=== PATIENT | female | born 1960 ===

== ENCOUNTER 2020-03-21 11:16 | Outpatient (REF) | payer BC, SELFPAY ==
--- NOTE | 2020-03-21 11:21 | CT_ITS ---
EXAMINATION: CT CHEST WITHOUT CONTRAST CLINICAL INFORMATION: Follow-up pulmonary nodules. COMPARISON: None TECHNIQUE: Multidetector volumetric CT imaging of the chest was done. Axial MIP volume rendering provided. Sagittal and coronal reformatted images were obtained. This CT examination was performed using dose optimization techniques as appropriate, variously including the following: *Automated exposure control *Adjustment of mA and/or kV according to patient size (this includes techniques or standardized protocols for targeted exams where dose is matched to indication/reason for exam; i.e. extremities or head) *Use of iterative reconstruction technique DLP: 158 mGy-cm FINDINGS: PET HOUSE SITTER: Lungs are well-expanded with calcified nodules in both upper lungs. LUNGS: The lungs are well expanded with bilateral dense coarse benign calcified nodules in both lungs with largest calcified nodules measuring 7 mm left lung apex, image 76/7, and 1 cm in left upper lobe, axial image 121/7. Largest nodule right upper lobe measures 5 mm, image 102/7. There is bilateral apical pleural/parenchymal scarring and mild apical bronchiectasis with bronchial wall thickening. Mild bronchovascular increased markings and ground-glass attenuation also seen in both upper lobes. A few scattered calcified nodules are seen in the right lower lobe. No additional nodules seen. No evidence of consolidation. MEDIASTINUM: The thyroid lobes are symmetrical. Central trachea and the bronchi are widely patent. Heart size and the great vessels are normal caliber. PLEURA: There is no pleural effusion. No pleural mass or thickening. AXILLA: No lymphadenopathy. UPPER ABDOMEN: Small hypodense lesions are seen in the liver which appear stable. Visualized spleen, pancreas and bilateral adrenal glands are unremarkable. OSSEOUS STRUCTURES: No lytic or sclerotic process seen. There is mild ventral spondylosis. IMPRESSION: Multiple bilateral upper lobe calcified nodules, ground-glass attenuation, pleural/parenchymal scarring and mild upper lobe bronchiectasis are are stable to previous CT chest 02/22/2019. There is no new nodules, mass or consolidation. No abnormal mediastinal or axillary lymphadenopathy. Stable hypodense liver lesions.
== END 2020-03-21 11:17 | disposition home or self-care (01) ==
LOC: HO.CT 11:16
PROVIDERS: PCP Internal Medicine; Visit Provider Internal Medicine
DX: R91.8 Other nonspecific abnormal finding of lung field (principal)
CPT/HCPCS: 71250

== ENCOUNTER 2020-03-31 13:27 | Outpatient (REF) | payer BC, SELFPAY ==
--- NOTE | 2020-03-31 13:32 | MM_ITS ---
EXAMINATION: MM SCREENING DIGITAL BREAST TOMOSYNTHESIS, BILATERAL CLINICAL INFORMATION: Screening. Asymptomatic. The lifetime risk of breast cancer based on the Tyrer-Cuzick Model is 9.2%. COMPARISON: Mammography: June 05, 2018 and studies dating back to December 16, 2015 TECHNIQUE: Digital breast tomosynthesis is performed in both the craniocaudal and mediolateral oblique views along with computer-aided detection (CAD). Synthesized 2D images are generated from the tomosynthesis. FINDINGS: There are scattered areas of fibroglandular density (ACR BI-RADS breast composition Category b). There are no significant masses, abnormal calcifications, or other abnormalities. MM/MM tomosynthesis screening BI IMPRESSION: There are no significant changes from prior study. ASSESSMENT: BI-RADS 1: Negative RECOMMENDATION: Routine annual mammography screening. This patient's information was entered into a reminder system with a target due date for their next mammogram.
== END 2020-03-31 13:28 | disposition home or self-care (01) ==
LOC: HO.MAMMO 13:27
PROVIDERS: Visit Provider Internal Medicine
DX: Z12.31 Encounter for screening mammogram for malignant neoplasm of breast (principal)
CPT/HCPCS: 77063; 77067

== ENCOUNTER 2020-06-07 09:34 | Outpatient (REF) | payer BC, SELFPAY ==
--- NOTE | 2020-06-07 09:41 | XR_ITS ---
EXAMINATION: XR LUMBOSACRAL SPINE CLINICAL INFORMATION: Radiculopathy. COMPARISON: None TECHNIQUE: Three views of the lumbosacral spine. FINDINGS: There is maintained lumbar lordosis. The vertebral heights and alignment is normal. Mild loss of L4-L5 and L5-S1 disc heights is noted. There is no visible acute fracture, dislocation or lytic process. The SI joints are symmetrical and normal. There is bilateral L5-S1, L4-L5 facet joint arthropathy. No lytic process seen. XR/XR lumbar spine 2-3V IMPRESSION: Degenerative disc changes L4-L5 and L5-S1 disc levels. No visible acute fracture or dislocation seen. There is bilateral L4-L5 and L5-S1 facet joint arthropathy.
== END 2020-06-07 09:35 | disposition home or self-care (01) ==
LOC: HO.HMGCX 09:34
PROVIDERS: PCP Internal Medicine; Visit Provider Nurse Practitioner Family
DX: M54.16 Radiculopathy, lumbar region (principal)
CPT/HCPCS: 72100

== ENCOUNTER 2020-08-30 09:55 | Outpatient (REF) | payer BC, SELFPAY ==
[2020-08-30 11:17] LABS: Glucose Urine UA NEG (NEG); Leukocyte Esterase Urine 3+ (NEG); Nitrite Urine NEG (NEG); PH 6.5 (5.0-8.0); Urine Blood TRACE (NEG); Urine Ketones NEG (NEG); Urine Protein NEG (NEG-TRACE)
[2020-08-30 11:19] LABS: Appearance Urine CLOUDY; Color Urine YELLOW
[2020-08-30 11:24] LABS: Hematocrit 37.9 % (37-47); Hemoglobin 12.6 g/dl (12.0-16.0); Mean Corpuscular HGB Conc 33.2 g/dl (31.0-35.0); Mean Corpuscular Hemoglobin 29.8 pg (27.0-33.0); Mean Corpuscular Volume 89.6 fL (80-98); Mean Platelet Volume 10.7 fL (9.4-12.3); Platelet Count 259 X10*3/uL (160-400); Red Blood Count 4.23 X10*6/uL (4.20-5.50); Red Cell Distribution Width 12.6 % (11.0-16.0); White Blood Count 5.5 X10*3/uL (4.8-10.8)
[2020-08-30 11:30] LABS: Bacteria Urine 1+ /LPF; RBC Urine 0-2 /HPF (0); Squamous Epithelial Cell Urine 4+ /LPF
[2020-08-30 11:45] LABS: Alanine Aminotransferase 23 U/L (0-31); Albumin Level 4.3 g/dL (3.5-5.0); Alkaline Phosphatase 68 U/L (39-117); Anion Gap 13 (12-20); Aspartate Amino Transferase 20 U/L (5-31); Bilirubin Total 0.9 mg/dL (0.0-1.0); Blood Urea Nitrogen 11 mg/dL (9-16); Calcium 8.9 mg/dL (8.4-10.2); Carbon Dioxide 29 mmol/L (22-29); Chloride 103 mmol/L (96-108); Cholesterol 176 mg/dL; Estimated Glomerular Filt Rate > 60; Glucose Fasting 100 mg/dL (60-99); HDL Cholesterol 65 mg/dL; LDL Cholesterol Calculated 93 mg/dl; Potassium 3.6 mmol/L (3.3-5.1); Sodium 141 mmol/L (135-145); Total Protein 6.8 g/dL (6.5-8.0); Triglycerides 91 mg/dL
== END 2020-08-30 09:56 | disposition home or self-care (01) ==
LOC: HO.HMGCLDS 09:55
PROVIDERS: PCP Internal Medicine; Visit Provider Internal Medicine
DX: I10 Essential (primary) hypertension (principal); E78.5 Hyperlipidemia, unspecified
CPT/HCPCS: 36415; 80053; 80061; 81001; 84443; 85027

== ENCOUNTER 2021-04-17 09:42 | Outpatient (REF) | payer BC, SELFPAY ==
--- NOTE | ~2021-04-17 | MM_ITS ---
EXAMINATION: MM SCREENING DIGITAL BREAST TOMOSYNTHESIS, BILATERAL CLINICAL INFORMATION: Screening. Asymptomatic. The lifetime risk of breast cancer based on the Tyrer-Cuzick Model is 9%. COMPARISON: Mammography: 03/31/2020; outside exams 06/05/2018, 02/17/2017 ([facility]). TECHNIQUE: Digital breast tomosynthesis is performed in both the craniocaudal and mediolateral oblique views along with computer-aided detection (CAD). Synthesized 2D images are generated from the tomosynthesis. FINDINGS: There are scattered areas of fibroglandular density (ACR BI-RADS breast composition Category b). There are no significant masses, abnormal calcifications, or other abnormalities. Parenchymal pattern is similar to prior exams. No developing density. The axilla and skin contours are unremarkable. No significant changes. MM/MM tomosynthesis screening BI IMPRESSION: No mammographic evidence of malignancy. ASSESSMENT: BI-RADS 1: Negative RECOMMENDATION: Routine annual mammography screening. This patient's information was entered into a reminder system with a target due date for their next mammogram.
== END 2021-04-17 09:43 | disposition home or self-care (01) ==
LOC: HO.MAMMO 09:42
PROVIDERS: Visit Provider Internal Medicine
DX: Z12.31 Encounter for screening mammogram for malignant neoplasm of breast (principal)
CPT/HCPCS: 77063; 77067

== ENCOUNTER 2021-04-20 13:05 | Outpatient (REF) | payer BC, SELFPAY ==
--- NOTE | ~2021-04-20 | US_ITS ---
EXAMINATION: US ABDOMEN COMPLETE CLINICAL INFORMATION: Abdominal pain. COMPARISON: CT chest noncontrast 03/21/2020, CT chest with contrast 02/22/2019. Ultrasound abdomen 08/19/2017. TECHNIQUE: Real-time imaging of the abdominal viscera. FINDINGS: PANCREAS: The pancreas is normal in size and contour and echogenicity. No pancreatic ductal distention or retroperitoneal effusion. ABDOMINAL AORTA: The proximal, mid, and distal segments are normal in caliber. INFERIOR VENA CAVA: Visualized portions are normal. LIVER: Liver is normal in size and smooth in contour. There is no intrahepatic ductal dilatation. There is a small circumscribed hyperechoic lesion central right hepatic lobe measuring 0.8 x 0.7 cm, likely a tiny hemangioma. Similar finding noted on ultrasound 2018. Other small hypodense hepatic parenchymal lesions noted on CT are not demonstrated by ultrasound. GALLBLADDER: The gallbladder shows no stone or layering sludge. There is no pericholecystic fluid. Sonographic Bolden's sign is negative. There are at least 4 gallbladder polyps projecting into the lumen. The largest measures 0.9 x 0.6 cm which may overlap with adenoma. Prior ultrasound 2018 shows similar finding. No significant gallbladder wall thickening. COMMON BILE DUCT: Common duct is normal in caliber measuring 0.55 cm. No ductal calculus. RIGHT KIDNEY: Right kidney measures 13.0 cm in length. There is normal renal parenchymal thickness and echogenicity with no hydronephrosis, caliectasis, or visible calculus. There is a nonspecific exophytic lesion from the interpolar region measuring 1.3 x 0.7 x 1.0 cm. The lesion appears solid. There is no associated color flow. The finding appears more focal than a simple developmental dromedary hump. In addition, finding is not demonstrated on prior ultrasound 2018. LEFT KIDNEY: Left kidney measures 11.6 cm. There is normal renal parenchymal thickness and echogenicity. No parenchymal lesion, hydronephrosis, caliectasis, or calculi. SPLEEN: Normal. The spleen measures 10.6 cm in maximum dimension. FREE FLUID: None. US/US abdomen complete IMPRESSION: 1. Multiple gallbladder polyps, largest measuring 0.9 cm may overlap with an adenoma and is similar to prior ultrasound 2018. Recommend nonemergent surgical consult for management. 2. No pericholecystic fluid. Negative sonographic Bolden's sign. No ductal dilatation. Normal pancreas. 3. Solid appearing exophytic lesion mid right kidney 1.3 cm, not previously described. Recommend further characterization with nonemergent MRI without and with gadolinium contrast. 4. Subcentimeter hepatic hemangioma similar to prior ultrasound 2018.
[2021-04-20 13:47] LABS: MANUAL DIFF FLAG NO
[2021-04-20 13:53] LABS: Basophils Percent Auto 0.4 % (0-2); Eosinophils Percent Auto 0.7 % (0-4); Hematocrit 38.5 % (37.0-47.0); Hemoglobin 12.6 g/dl (12.0-16.0); Imm Gran Abs Auto 0.01 X10*3/uL (0.00-0.03); Imm Gran Pct Auto 0.2 % (0.0-0.4); Lymphocytes Absolute Auto 1.8 X10*3/uL (1.2-4.9); Lymphocytes Percent Auto 32.4 % (20-40); Mean Corpuscular HGB Conc 32.7 g/dl (31.0-35.0); Mean Corpuscular Hemoglobin 29.2 pg (27.0-33.0); Mean Corpuscular Volume 89.3 fL (80.0-98.0); Mean Platelet Volume 10.9 fL (9.4-12.3); Monocytes Absolute Auto 0.4 X10*3/uL (0.1-1.2); Monocytes Percent Auto 6.6 % (2-11); Neutrophils Absolute Auto 3.3 x10*3/uL (2.0-8.3); Neutrophils Percent Auto 59.7 % (45-73); Platelet Count 242 X10*3/uL (160-400); Red Blood Count 4.31 X10*6/uL (4.20-5.50); Red Cell Distribution Width 12.4 % (11.0-16.0); White Blood Count 5.4 X10*3/uL (4.8-10.8)
[2021-04-20 14:03] LABS: Appearance Urine CLEAR; Color Urine YELLOW; Glucose Urine UA NEG (NEG); Leukocyte Esterase Urine NEG (NEG); Nitrite Urine NEG (NEG); Specific Gravity - Urine <= 1.005 (1.005-1.025); Urine Blood NEG (NEG); Urine Ketones NEG (NEG); Urine Protein NEG (NEG-TRACE)
[2021-04-20 14:22] LABS: Alanine Aminotransferase 506 U/L (0-31); Albumin Level 4.4 g/dL (3.5-5.0); Alkaline Phosphatase 168 U/L (39-117); Anion Gap 12 (12-20); Aspartate Amino Transferase 382 U/L (5-31); Bilirubin Total 1.4 mg/dL (0.0-1.0); Blood Urea Nitrogen 7 mg/dL (9-16); C Reactive Protein 0.18 mg/dL (< or = 0.50); Carbon Dioxide 28 mmol/L (22-29); Chloride 105 mmol/L (96-108); Estimated Glomerular Filt Rate > 60; Glucose Random 94 mg/dL (60-115); Potassium 3.9 mmol/L (3.3-5.1); Sodium 141 mmol/L (135-145); Total Protein 6.8 g/dL (6.5-8.0)
[2021-04-20 14:35] LABS: Squamous Epithelial Cell Urine 1+ /LPF
[2021-04-20 14:36] LABS: RBC Urine 0 /HPF (0); WBC Urine 0-2 /HPF (0-4)
[2021-04-20 14:37] LABS: Bacteria Urine TRACE /LPF
== END 2021-04-20 13:06 | disposition home or self-care (01) ==
LOC: HO.HMGCX 13:05
PROVIDERS: PCP Internal Medicine; Visit Provider Internal Medicine
DX: R10.9 Unspecified abdominal pain (principal); I10 Essential (primary) hypertension; E78.5 Hyperlipidemia, unspecified
CPT/HCPCS: 36415; 76700; 80053; 81001; 85025; 86140

== ENCOUNTER 2021-04-30 09:32 | Outpatient (REF) | payer BC, SELFPAY ==
[2021-04-30 11:56] LABS: Hemoglobin 12.9 g/dl (12.0-16.0); Mean Corpuscular HGB Conc 33.1 g/dl (31.0-35.0); Mean Corpuscular Hemoglobin 29.3 pg (27.0-33.0); Mean Corpuscular Volume 88.4 fL (80.0-98.0); Mean Platelet Volume 11.1 fL (9.4-12.3); Platelet Count 294 X10*3/uL (160-400); Red Blood Count 4.41 X10*6/uL (4.20-5.50); White Blood Count 7.7 X10*3/uL (4.8-10.8)
[2021-04-30 12:08] LABS: Alanine Aminotransferase 71 U/L (0-31); Albumin Level 4.3 g/dL (3.5-5.0); Alkaline Phosphatase 115 U/L (39-117); Anion Gap 13 (12-20); Aspartate Amino Transferase 28 U/L (5-31); Bilirubin Total 0.6 mg/dL (0.0-1.0); Blood Urea Nitrogen 9 mg/dL (9-16); Calcium 9.3 mg/dL (8.4-10.2); Carbon Dioxide 28 mmol/L (22-29); Chloride 105 mmol/L (96-108); Cholesterol 159 mg/dL; Estimated Glomerular Filt Rate > 60; Gamma Glutamyl Transpeptidase 230 U/L (7-33); Glucose Fasting 105 mg/dL (60-99); HDL Cholesterol 54 mg/dL; LDL Cholesterol Calculated 87 mg/dl; Potassium 3.9 mmol/L (3.3-5.1); Sodium 142 mmol/L (135-145); Total Protein 6.9 g/dL (6.5-8.0); Triglycerides 93 mg/dL
[2021-04-30 12:31] LABS: TSH reflex Free T4 1.31 uIU/mL (0.32-4.0)
[2021-05-01 08:51] LABS: HBS Num1 0.28 mIU/mL (0-7.99); ~HepC Num1 0.07 S/CO (0.00-0.79); ~Hepatitis B Surface Antibody NONREACTIVE (Nonreactive); ~Hepatitis C Antibody Nonreactive (Nonreactive)
[2021-05-01 09:08] LABS: HBc Num1 0.06 S/CO (0.00-0.79); HBsAGNum1 0.18 S/CO (0.00-0.99); Hepatitis B Core Antibody Nonreactive (Nonreactive); Hepatitis B Surface Antigen Negative (Negative)
[2021-05-01 20:52] LABS: Anti Nuclear Antibody Screen POSITIVE (NEGATIVE)
[2021-05-03 12:52] LABS: Liver Kidney Microsomal Ab <=20.0 U (<=20.0)
[2021-05-05 20:12] LABS: Hepatitis Delta Antibody NEGATIVE
== END 2021-04-30 09:33 | disposition home or self-care (01) ==
LOC: HO.HMGCLDS 09:32
PROVIDERS: PCP Internal Medicine; Visit Provider Internal Medicine
DX: R10.9 Unspecified abdominal pain (principal); K75.9 Inflammatory liver disease, unspecified; K82.4 Cholesterolosis of gallbladder; E78.5 Hyperlipidemia, unspecified; I10 Essential (primary) hypertension
CPT/HCPCS: 36415; 80053; 80061; 82977; 84443; 85027; 86038; 86039; 86376; 86692; 86704; 86706; 86803; 87340

== ENCOUNTER → 2021-05-02 10:04 | Outpatient (BNVA) | payer BC, SELFPAY | PROVIDERS: PCP Internal Medicine ==

== ENCOUNTER 2021-05-02 15:03 | Outpatient (REF) | payer BC, SELFPAY | END 2021-05-02 15:04 | disposition home or self-care (01) | LOC: HO.LNP 15:03 | DX: R32 Unspecified urinary incontinence (principal) | CPT/HCPCS: 87086 ==

== ENCOUNTER 2021-05-03 14:03 | Outpatient (REF) | payer BC, SELFPAY | END 2021-05-03 14:04 | disposition home or self-care (01) | LOC: HO.LNP 14:03 | PROVIDERS: Visit Provider Physician Assistant Medical | DX: R50.9 Fever, unspecified (principal); Z20.822 Contact with and (suspected) exposure to COVID-19 | CPT/HCPCS: U0003; U0005 ==

== ENCOUNTER 2021-06-04 17:56 | Outpatient (REF) | payer BC, SELFPAY ==
[2021-06-04 19:08] LABS: Influenza A PCR NEGATIVE (Negative); Influenza B PCR NEGATIVE (Negative); Resp Syncy Virus RNA Qual PCR NEGATIVE (Negative); SARS COV2 PCR INHOUSE POSITIVE (Negative)
== END 2021-06-04 17:57 | disposition home or self-care (01) ==
LOC: HO.LNP 17:56
PROVIDERS: Visit Provider Nurse Practitioner Family
DX: Z20.822 Contact with and (suspected) exposure to COVID-19 (principal); R51.9 Headache, unspecified
CPT/HCPCS: 0241U

== ENCOUNTER 2021-06-22 09:14 | Outpatient (REF) | payer BC, SELFPAY ==
--- NOTE | ~2021-06-22 | MR_ITS ---
EXAMINATION: MR KIDNEY CLINICAL INFORMATION: Question right renal mass COMPARISON: Previous abdominal ultrasound April 2021 TECHNIQUE: Sagittal axial and coronal sequences through the abdomen with and without contrast. The patient received 8.5 mL Gadavist contrast. FINDINGS: There is a 1.0 cm lesion exophytic to the lateral midpole of the left kidney. This is low signal on T1-weighted sequences and high signal on T2-weighted sequences. This does not demonstrate evidence of enhancement and is suggestive of a cyst. There is a small 5 mm lesion in the lower pole of the left kidney. This is low signal on T1-weighted sequences, high signal on T2-weighted sequences and demonstrates no evidence of enhancement also suggestive of a cyst. No renal mass or hydronephrosis is seen. The liver is normal in size, shape and contour. The liver is normal in signal. There are several liver lesions seen. The largest measures approximately 1 cm high in the posterior segment of the right lobe of the liver. The liver lesions are not visualized on all sequences and cannot be adequately characterized. There is nodular enhancement of the gallbladder wall likely corresponding to a gallbladder wall polyps. The largest lesion measures approximately 6 mm. The gallbladder wall does not appear thickened. There is no intrahepatic or extrahepatic biliary duct dilatation. The common bile duct measures 4 mm. The pancreas is normal in signal and demonstrates normal enhancement. The main pancreatic duct is normal. The spleen is normal. The adrenal glands are normal. Visualized bowel is unremarkable. Vascular structures are unremarkable. No ascites or adenopathy is seen. No hernia is seen. MR/MR kidney wo/w con IMPRESSION: 1. Bilateral renal cysts. No renal mass seen. 2. Innumerable liver lesions. These are not included in the [id number] on all sequences and cannot be adequately characterized. The largest measures 1.0 cm high in the right lobe of the liver. 3. Nodular enhancement of the gallbladder wall probably corresponding to gallbladder wall polyps.
[2021-06-22 09:48] LABS: Blood Urea Nitrogen 15 mg/dL (9-16); Estimated Glomerular Filt Rate > 60
== END 2021-06-22 09:15 | disposition home or self-care (01) ==
LOC: HO.XRAY 09:14
PROVIDERS: PCP Internal Medicine; Visit Provider Internal Medicine
DX: N28.9 Disorder of kidney and ureter, unspecified (principal); I10 Essential (primary) hypertension
CPT/HCPCS: 36415; 74181; 82565; 84520; A9585

== ENCOUNTER → 2021-07-06 10:37 | Outpatient (BNVA) | payer BC, SELFPAY | PROVIDERS: PCP Internal Medicine; Referring Provider Internal Medicine; Visit Provider Surgery ==

== ENCOUNTER 2021-07-30 08:33 | Day surgery (SDC) | payer BC, SELFPAY ==
[2021-07-20 13:50] VITALS: BMI 32.4
--- NOTE | 2021-07-27 08:56 | HO.ANESPROP2 ---
Documented by User: Lamar Hwang NP 07/27/21 08:59 HPI - Anesthesia Eval Consult details Narrative: 61yo F for Cholecystectomy Laparoscopic, Poss Open PMFSH Active Problems Active Problems: All Active Problems (Updated 07/20/21 @ 13:49 by Anne-Marie Nihcolas RN) Lumbar radiculopathy (Acute) Urinary tract infection (Acute) Cough (Acute) Renal cancer (Acute) Kidney lesion (Acute) Gallbladder polyp (Acute) Hepatitis (Acute) Abdominal pain (Acute) Incontinence of urine (Acute) Annual physical exam (Acute) Hyperlipidemia (Acute) HTN (hypertension) (Acute) Past Medical History Medical History Abdominal pain Annual physical exam Anxiety and depression Gallbladder polyp GERD (gastroesophageal reflux disease) Hepatitis HTN (hypertension) Hyperlipidemia Incontinence of urine Kidney lesion SARS-CoV-2 positive Family History Family History Father No problems noted. Mother No problems noted. Surgical History Surgical History (Updated 07/19/21 @ 14:11 by Anne-Marie Nicholas RN) H/O colonoscopy Social History Social History Housing: House Alcohol intake: current Alcohol intake frequency: holidays/special occasions only Patient Tobacco Use Status: Former Tobacco user Tobacco use type: Cigarette e-Cigarette/Vaping Use: Never Used Use of substances other than those prescribed or required for medical reasons: No Advance Directives Information Provided: Yes (brochure mailed) Advance Directives on File: No Current occupational status: employed Meds Allergies Allergy/AdvReac Type Severity Reaction Status Date / Time No Known Allergies Allergy Verified 07/30/21 09:15 Exam Exam Date and Time: July 27, 2021 0856 Height,Weight and Vital Signs: Height 5 ft 4 in Weight 85.786 kg Pertinent Lab Results Pertinent Lab Results: Laboratory Tests 04/30/21 04/30/21 06/22/21 09:46 09:46 09:23 WBC 7.7 Hgb 12.9 Hct 39.0 Plt Count 294 Sodium 142 Potassium 3.9 Chloride 105 Carbon Dioxide 28 BUN 15 Creatinine 0.75 Laboratory Tests 04/30/21 09:46 Calcium 9.3 Total Bilirubin 0.6 GGT 230 H AST 28 D ALT 71 H Alkaline Phosphatase 115 D Total Protein 6.9 Albumin 4.3 Narrative Narrative: EKG 04/2021 ST @ 103 RSR' in V1 Low QRS volt Normal variant Assessment and Plan Assessment Anesthesia Assessment: Chart Reviewed Documented by User: Keiry Smith MD 07/30/21 09:25 PMFSH Past Medical History Medical History Abdominal pain Annual physical exam Anxiety and depression Gallbladder polyp GERD (gastroesophageal reflux disease) Hepatitis HTN (hypertension) Hyperlipidemia Incontinence of urine Kidney lesion SARS-CoV-2 positive Family History Family History Father No problems noted. Mother No problems noted. Family history of problems with anesthesia: No Surgical History Surgical History (Updated 07/19/21 @ 14:11 by Anne-Marie Nicholas RN) H/O colonoscopy History of Problems with Anesthesia: No Social History Social History Housing: House Alcohol intake: current Alcohol intake frequency: holidays/special occasions only Patient Tobacco Use Status: Former Tobacco user Tobacco use type: Cigarette e-Cigarette/Vaping Use: Never Used Use of substances other than those prescribed or required for medical reasons: No Advance Directives Information Provided: Yes (brochure mailed) Advance Directives on File: No Current occupational status: employed Meds Allergies Allergy/AdvReac Type Severity Reaction Status Date / Time No Known Allergies Allergy Verified 07/30/21 09:15 Exam Airway Mallampati Class: II TM Dist: >3cm Neck ROM: Full Denture: Upper and Lower Assessment and Plan Assessment Anesthesia Assessment: Anesthesia Plan Discussed Final Anesthetic Review Family History of Problems with Anesthesia: No History of Problems with Anesthesia: No NPO: Yes ASA Class: II Final Preanesthetic Review: No Changes in Pt Med Stat, Meds/Allgs Chart Reviewed, Consent Obtained/Reviewed and Anes Risks/Benef Reviewed Patient Risk: Intermediate Procedure Risk: Intermediate Anesthetic Plan Anesthetic Plan: GA Disposition: Standard PACU
[2021-07-30] VITALS (12 sets, daily range): BP systolic 114–166; BP diastolic 50–82; PULSE 57–71; RESP 12–19; TEMP 36.5–37.2; O2SAT 93–99
[2021-07-30] MEDS: Lactated Ringers 1,000 ML 100 ML IVCONT (09:11)
[2021-07-30] MEDS: Acetaminophen 325 MG TABLET 650 MG PO (09:29)
--- NOTE | 2021-07-30 11:52 | W.PM.OPN ---
Operative Note Operative Note Date of Service: 07/30/21 Narrative: Preoperative diagnosis: Gall bladder polyp Postoperative diagnosis: Same Procedure: Laparoscopic cholecystectomy Surgeon: Jonathan Flores MD Diving Board Assembler: BRIGHT Rasmussen Anesthesia: General endotracheal Indications for procedure:61 year old female patient with pain in the right upper quadrant found to have a 1 cm gallbladder wall polyp. Operative findings: Evidence of chronic cholecystitis with adhesions to stomach and duodenum, multiple small gallstones in gallbladder. Specimen: gallbladder Estimated blood loss:2 mls Complications: none Procedure details: Patient was brought to the OR and placed in a supine position. After administering general anesthesia the patient's abdomen was prepped with ChloraPrep and draped in a sterile fashion. Local anesthesia consisting of 0.5% Sensorcaine without epinephrine was infiltrated in a periumbilical region. A 5 mm incision was made above the umbilicus in a transverse fashion. The Veress needle was then inserted while elevating abdominal cavity with towel clips. After positive drop test the abdomen was insufflated to a pressure of 15 mm of mercury. The Veress needle was then removed and a 5 mm trocar inserted. The camera was inserted in the abdomen explored. A 12 mm trocar was then placed in the epigastrium and two 5 mm trocars placed in the right upper quadrant. The patient was placed in reverse Trendelenburg positioning and rotated to the left. The gallbladder was grasped with the fundus and retracted cephalad.. The infundibulum was then grasped and retracted away from the liver bed. The Dolphin dissected was then used to dissect the peritoneum off the infundibulum to reveal the junction with the cystic duct. Cystic artery was noted slightly medial and posterior to the cystic duct. After obtaining a critical view the cystic duct was doubly clipped and divided. The cystic artery was then doubly clipped and divided. The gallbladder was then dissected off the liver bed using electrocautery with an L hook. Hemostasis was assured all times using the electrocautery. When the gallbladder is completely dissected off the liver bed was placed in an Endo-Catch bag and brought out through the epigastric incision. The gallbladder was sent to pathology for further examination. The abdomen was then re-examined. The liver bed was irrigated and suctioned dry. No bleeding or bile leak could be identified. CO2 was then evacuated and all trocars removed. Fascia was closed at the epigastric incision using a [id number] Polysorb suture. Skin was closed in all incisions using a subcuticular 4 0 Polysorb suture. Sterile dressings consisting of Steri-Strips, 2 x 2 gauze, and Tegaderm were then applied. The patient tolerated the procedure well. Sponge instrument and needle counts reported as correct. The patient was transferred to PACU in stable condition.
--- NOTE | 2021-07-30 11:54 | MHC.SHP ---
Pre-Procedural Eval Section A Date of Service: 07/30/21 The patient is an INPATIENT: No Changes since office visit: Yes Patient answered all questions; No Cold of Flu in the past 2 weeks, No New Medical Problems and No Changes in Medication The History & Physical has been completed within 30 days and I have reviewed it.: Yes Section B Chief Complaint: Cholesterolosis of gallbladder, Biliary colic Allergies: Allergies Allergy/AdvReac Type Severity Reaction Status Date / Time No Known Allergies Allergy Verified 07/30/21 09:15 Plan Diagnosis/Plan: Unchanged I have reviewed the history and physical and performed a pertinent physical examination on my patient. No changes have occurred unless specified.
[2021-07-30] MEDS: ondansetron HCL 4 MG/2 ML VIAL IVPUSH (12:34)
[2021-07-30] MEDS: oxyCODONE HCl Immed Release 5 MG TABLET PO (12:34)
[2021-07-30] MEDS: fentaNYL citrate/PF 100 MCG/2 ML VIAL 50 MCG IVPUSH (12:37)
== END 2021-07-30 14:58 | disposition home or self-care (01) ==
PROVIDERS: PCP Internal Medicine; Visit Provider Surgery
PROC: 0FT44ZZ Resection of Gallbladder, Percutaneous Endoscopic Approach (ICD-10-PCS; CPT 47562; principal; 2021-07-30 10:10)
DX: K80.10 Calculus of gallbladder with chronic cholecystitis without obstruction (principal); K82.8 Other specified diseases of gallbladder; K21.9 Gastro-esophageal reflux disease without esophagitis; K75.9 Inflammatory liver disease, unspecified; I10 Essential (primary) hypertension; E78.5 Hyperlipidemia, unspecified; N28.9 Disorder of kidney and ureter, unspecified; Z79.899 Other long term (current) drug therapy; Z86.16 Personal history of COVID-19; Z87.891 Personal history of nicotine dependence
CPT/HCPCS: 47562; 88304; J1100; J1170; J2250; J2405; J3010

== ENCOUNTER → 2021-08-07 11:38 | Outpatient (BNVA) | payer BC, SELFPAY | PROVIDERS: PCP Internal Medicine; Visit Provider Surgery ==

== ENCOUNTER → 2021-08-28 10:26 | Outpatient (BNVA) | payer BC, SELFPAY | PROVIDERS: PCP Internal Medicine; Referring Provider Internal Medicine; Visit Provider Surgery | DX: Z13.89 Encounter for screening for other disorder (principal) ==

== ENCOUNTER 2021-10-11 08:03 | Outpatient (REF) | payer BC, SELFPAY ==
[2021-10-16 12:06] LABS: HPV mRNA E6/E7 rflx Not Detected (Not Detected)
== END 2021-10-11 08:04 | disposition home or self-care (01) ==
LOC: HO.LAB 08:03
PROVIDERS: PCP Internal Medicine; Visit Provider Obstetrics & Gynecology
DX: Z01.411 Encounter for gynecological examination (general) (routine) with abnormal findings (principal); Z11.51 Encounter for screening for human papillomavirus (HPV); N81.4 Uterovaginal prolapse, unspecified; N84.1 Polyp of cervix uteri; N88.9 Noninflammatory disorder of cervix uteri, unspecified
CPT/HCPCS: 57500; 87624; 88142; 88305

== ENCOUNTER 2021-10-18 11:01 | Outpatient (REF) | payer BC, SELFPAY ==
[2021-10-19 12:54] LABS: BV Int Neg Control Negative (Negative); BV Int Pos Control Positive (Positive)
== END 2021-10-18 11:02 | disposition home or self-care (01) ==
LOC: HO.LAB 11:01
PROVIDERS: PCP Internal Medicine; Visit Provider Obstetrics & Gynecology
DX: N88.9 Noninflammatory disorder of cervix uteri, unspecified (principal); N84.1 Polyp of cervix uteri; N95.0 Postmenopausal bleeding; N76.0 Acute vaginitis; B96.89 Other specified bacterial agents as the cause of diseases classified elsewhere
CPT/HCPCS: 87480; 87510; 87660

== ENCOUNTER 2021-10-31 09:49 | Outpatient (REF) | payer BC, SELFPAY ==
--- NOTE | ~2021-10-31 | US_ITS ---
EXAMINATION: US PELVIS CLINICAL INFORMATION: Postmenopausal bleeding. COMPARISON: None TECHNIQUE: Ultrasound of the pelvis is performed using both transabdominal and transvaginal transducers along with Doppler. Transvaginal imaging is performed due to inadequate visualization transabdominally. FINDINGS: Uterus: Anteverted/anteflexed measuring 7.5 x 3.3 x 5.3 cm. An intramural fibroid in the fundus measures 1.5 x 1.3 x 1.1 cm. An intramural fibroid in the mid posterior body measures 0.4 x 0.4 x 0.3 cm. An intramural fibroid in the mid inferior posterior body measures 0.6 x 0.6 x 0.6 cm. The endometrial stripe measures up to 0.2 cm at the level the fundus. And ovoid echogenic focus is seen in the region of the endometrial canal at the level the fundus measuring 0.4 x 0.3 x 0.3 cm. Color Doppler showed no associated hypervascularity. The cervix is closed without significant abnormality. No significant free fluid in the cul-de-sac. Adnexa: The ovaries were not confidently identified. A mildly heterogeneous hypoechoic mass is seen in the right adnexa measuring approximately 4.0 x 2.9 x 3.7 cm with a volume of 23 cc. US/US pelvic and transvaginal IMPRESSION: 1. Uterine fibroids as detailed above. The heterogeneous hypoechoic mass in the right adnexa could represent a subserosal/pedunculated fibroid. The ovaries were not identified. 2. Possible small endometrial polyp at the level the fundus demonstrates overall benign features. Given these findings, contrast-enhanced pelvic MRI is recommended.
== END 2021-10-31 09:50 | disposition home or self-care (01) ==
LOC: HO.HMGCX 09:49
PROVIDERS: Visit Provider Obstetrics & Gynecology
DX: N95.0 Postmenopausal bleeding (principal)
CPT/HCPCS: 76830; 76856

== ENCOUNTER 2021-12-07 07:59 | Day surgery (SDC) | payer BC, SELFPAY ==
--- NOTE | 2021-12-05 12:33 | HO.ANESPROP2 ---
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 (Acute) Lumbar radiculopathy (Acute) Urinary tract infection (Acute) Cough (Acute) Kidney lesion (Acute) Gallbladder polyp (Acute) Hepatitis (Acute) Abdominal pain (Acute) Incontinence of urine (Acute) Annual physical exam (Acute) Hyperlipidemia (Acute) HTN (hypertension) (Acute) Past Medical History Medical History Abdominal pain Annual physical exam Anxiety and depression Gallbladder polyp GERD (gastroesophageal reflux disease) Hepatitis HTN (hypertension) Hyperlipidemia Incontinence of urine Kidney lesion SARS-CoV-2 positive 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 Mother No problems noted. Family history of problems with anesthesia: No Surgical History Surgical History H/O colonoscopy History of Problems with Anesthesia: No Social History Social History Housing: House Alcohol intake: current Alcohol intake frequency: holidays/special occasions only Patient Tobacco Use Status: Former Tobacco user Tobacco use type: Cigarette e-Cigarette/Vaping Use: Never Used Second Hand Smoke Exposure: No Use of substances other than those prescribed or required for medical reasons: No Are you DNR?: No Advance Directives: No Advance Directives Information Provided: Yes Advance Directives on File: No Current occupational status: employed Cognitive needs: No Hearing needs: No Vision needs: Yes Meds Allergies Allergy/AdvReac Type Severity Reaction Status Date / Time No Known Allergies Allergy Verified 11/28/21 10:51 Exam Exam Date and Time: December 05, 2021 1233 Assessment and Plan Assessment Anesthesia Assessment: Chart Reviewed Final Anesthetic Review Family History of Problems with Anesthesia: No History of Problems with Anesthesia: No Documented by User: Heidi Encarnacion MD 12/07/21 11:19 [facility] Active Problems Active Problems: All Active Problems (Updated 11/28/21 @ 11:19 by Zeeshan Orozco MD) Uterine myoma (Acute) Ovarian mass (Acute) Bacterial vaginosis (Acute) Postmenopausal bleeding (Acute) Cervical lesion (Acute) Endocervical polyp (Acute) Cystocele with small rectocele and uterine descent (Acute) 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 (Acute) Lumbar radiculopathy (Acute) Urinary tract infection (Acute) Cough (Acute) Kidney lesion (Acute) Gallbladder polyp (Acute) Hepatitis (Acute) Abdominal pain (Acute) Incontinence of urine (Acute) Annual physical exam (Acute) Hyperlipidemia (Acute) HTN (hypertension) (Acute) Increased BMI Denies RODNEY Past Medical History Medical History Abdominal pain Annual physical exam Anxiety and depression Gallbladder polyp GERD (gastroesophageal reflux disease) Hepatitis HTN (hypertension) Hyperlipidemia Incontinence of urine Kidney lesion SARS-CoV-2 positive 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 Mother No problems noted. Surgical History Surgical History H/O colonoscopy Social History Social History Housing: House Alcohol intake: current Alcohol intake frequency: holidays/special occasions only Patient Tobacco Use Status: Former Tobacco user Tobacco use type: Cigarette e-Cigarette/Vaping Use: Never Used Second Hand Smoke Exposure: No Use of substances other than those prescribed or required for medical reasons: No Are you DNR?: No Advance Directives: No Advance Directives Information Provided: Yes Advance Directives on File: No Current occupational status: employed Cognitive needs: No Hearing needs: No Vision needs: Yes Meds Allergies Allergy/AdvReac Type Severity Reaction Status Date / Time No Known Allergies Allergy Verified 11/28/21 10:51 Exam Height,Weight and Vital Signs: Height 5 ft 4 in Weight 81.647 kg Vital Signs Temp Pulse Resp BP Pulse Ox O2 Del Method 97.0 F 62 16 136/52 L 95 12/07/21 09:32 12/07/21 09:32 12/07/21 09:32 12/07/21 09:32 12/07/21 09:32 12/07/21 09:32 Airway Mallampati Class: II TM Dist: >3cm Neck ROM: Full Denture: Upper and Lower Heart: RRR Lungs: CTAB Assessment and Plan Assessment Anesthesia Assessment: Anesthesia Plan Discussed Final Anesthetic Review NPO: Yes ASA Class: II Final Preanesthetic Review: No Changes in Pt Med Stat, Meds/Allgs Chart Reviewed, Consent Obtained/Reviewed and Anes Risks/Benef Reviewed Patient Risk: Low Procedure Risk: Low Assessment/Block/Sedation in SS: Assess/Block/Sedation-SS Anesthetic Plan Anesthetic Plan: GA Disposition: Standard PACU
[2021-12-07 09:16] VITALS: BMI 30.9
[2021-12-07 09:32] VITALS: BP 136/52; PULSE 62; RESP 16; TEMP 36.1; O2SAT 95
--- NOTE | 2021-12-07 09:37 | MHC.SHP ---
Pre-Procedural Eval Section A Date of Service: 12/07/21 The patient is an INPATIENT: No Changes since office visit: No Cold of Flu in the past 2 weeks, No New Medical Problems, No Changes in Medication and No Patient answered all questions The History & Physical has been completed within 30 days and I have reviewed it.: Yes Section B Chief Complaint: bleeding Allergies: Allergies Allergy/AdvReac Type Severity Reaction Status Date / Time No Known Allergies Allergy Verified 11/28/21 10:51 Plan Diagnosis/Plan: Unchanged I have reviewed the history and physical and performed a pertinent physical examination on my patient. No changes have occurred unless specified.
[2021-12-07] MEDS: Lactated Ringers 1,000 ML 100 ML IVCONT (09:39)
--- NOTE | 2021-12-07 10:57 | P.BOP_ITS ---
Brief Operative Note Date of Service: 12/07/21 Pre-op diagnosis: Postmenopausal bleeding with endometrial polyp by ultrasound Post-op diagnosis: same (Normal endometrial/endocervical cavity, no evidence of pathology) Procedure: Hysteroscopy D&C Surgeon: Zeeshan Orozco MD Anesthesia: GLMA Was an Enterprise Sales Executive used for this Procedure?: No Estimated blood loss (mL): 0 Pathology: other (Endometrial Scrapping.) Condition: stable Disposition: PACU
--- NOTE | 2021-12-07 10:58 | W.PM.OPN ---
Operative Note Operative Note Date of Service: 12/07/21 Narrative: Preop Diagnosis: Post Menopausal bleeding with endometrial polyp by ultrasound Operation: Diagnostic Hysteroscopy, Dilataion & Curettage Post Op Diagnosis: Normal endometrial cavity QBL: Minimal Anesthesia: General LMA Surgeon: Zeeshan Orozco MD Costume Shop Manager: None Complication: None Pathology: Endometrial Scrapings Procedure: The patient was put in the dorsal lithotomy position, scrubbed, and draped in the usual manner. A sterile speculum was inserted in the patient's vagina. The anterior lip of the cervix was grasped with a single tooth tenaculum. The cervix was dilated up to 5 mm, then the scope was inserted in the patient's uterus. Inspection revealed Normal endometrial cavity. The Myosure Reach device was used; sharp curettings was done with minimal amount of tissues retrieved. At the end of the procedure, all instruments were taken out of the patient uterine and vaginal cavity. The single tooth tenaculum was removed and homeostasis was assured using pressure,. The patient tolerated the procedure well and was transferred to the PACU in a stable condition.
[2021-12-07 10:59] VITALS: BP 134/66; PULSE 53; RESP 12; TEMP 36.3; O2SAT 99
[2021-12-07 11:04] VITALS: BP 134/66; PULSE 54; RESP 12; O2SAT 99
[2021-12-07 11:09] VITALS: BP 138/76; PULSE 54; RESP 12; O2SAT 99
[2021-12-07 11:14] VITALS: BP 137/55; PULSE 54; RESP 12; TEMP 36.2; O2SAT 98
[2021-12-07 11:29] VITALS: BP 147/76; PULSE 55; RESP 14; TEMP 36.6; O2SAT 97
== END 2021-12-07 12:17 | disposition home or self-care (01) ==
PROVIDERS: PCP Internal Medicine; Visit Provider Obstetrics & Gynecology
PROC: 0UDB8ZZ Extraction of Endometrium, Via Natural or Artificial Opening Endoscopic (ICD-10-PCS; CPT 58558; principal; 2021-12-07 09:30)
DX: N95.0 Postmenopausal bleeding (principal); N83.8 Other noninflammatory disorders of ovary, fallopian tube and broad ligament; D25.1 Intramural leiomyoma of uterus; N85.4 Malposition of uterus; K21.9 Gastro-esophageal reflux disease without esophagitis; F41.8 Other specified anxiety disorders; Z86.16 Personal history of COVID-19; Z87.891 Personal history of nicotine dependence; Z79.899 Other long term (current) drug therapy
CPT/HCPCS: 58558; 88305; J1100; J1885; J2405; J3010

== ENCOUNTER 2021-12-13 09:09 | Outpatient (REF) | payer BC, SELFPAY ==
--- NOTE | ~2021-12-13 | MR_ITS ---
EXAMINATION: MR PELVIS WITHOUT AND WITH CONTRAST CLINICAL INFORMATION: Intermittent bleeding COMPARISON: Ultrasound dated 10/31/2021 TECHNIQUE: Multiplanar, multi sequential MRI examination of the pelvis was performed with sequences acquired before and after administration of 8.5 mL Gadavist FINDINGS: Uterus is normal in size and configuration, measuring 7.5 x 3.3 cm sagittally and 7.5 cm transversely including a right lateral subserosal fibroid (5.0 cm without including the fibroid). Uterine junctional zone measures 6 mm. Endometrium is unremarkable; no evidence of any endometrial polyp. There are a few nabothian cysts within the cervix. Cervix otherwise unremarkable. There are a few uterine fibroids as follows: * Right lateral uterine subserosal fibroid measures 4.0 x 3.0 x 3.3 cm. This fibroid contacts the uterus along approximately one third of its circumference. * There is a 1.3 cm intramural fibroid within the anterior uterine fundus. There are couple tiny subserosal fibroids measuring less than 1 cm along the posterior uterus. Ovaries are normal in size and appearance. No adnexal masses. No pelvic free fluid. No lymphadenopathy. Bladder is normal. Imaged gastrointestinal tract unremarkable. No acute or suspicious osseous abnormalities. MR/MR pelvis wo/w con IMPRESSION: * There are a few uterine fibroids as described, largest measuring 4.0 cm, subserosal along the right lateral uterus. * No endometrial polyp is identified. * Ovaries are unremarkable.
== END 2021-12-13 09:10 | disposition home or self-care (01) ==
LOC: HO.MRI 09:09
PROVIDERS: Visit Provider Obstetrics & Gynecology
DX: N83.8 Other noninflammatory disorders of ovary, fallopian tube and broad ligament (principal)
CPT/HCPCS: 72197; A9585

== ENCOUNTER 2022-02-05 11:59 | Outpatient (REF) | payer BC, SELFPAY ==
[2022-02-05 14:00] LABS: MANUAL DIFF FLAG NO
[2022-02-05 14:25] LABS: Basophils Percent Auto 0.5 % (0-2); Eosinophils Absolute Auto 0.1 X10*3/uL (0.0-0.4); Eosinophils Percent Auto 1.7 % (0-4); Hematocrit 38.6 % (37.0-47.0); Hemoglobin 12.9 g/dl (12.0-16.0); Imm Gran Abs Auto 0.02 X10*3/uL (0.00-0.03); Imm Gran Pct Auto 0.3 % (0.0-0.4); Lymphocytes Absolute Auto 2.3 X10*3/uL (1.2-4.9); Lymphocytes Percent Auto 36.2 % (20-40); Mean Corpuscular HGB Conc 33.4 g/dl (31.0-35.0); Mean Corpuscular Hemoglobin 29.7 pg (27.0-33.0); Mean Corpuscular Volume 88.9 fL (80.0-98.0); Mean Platelet Volume 10.7 fL (9.4-12.3); Monocytes Absolute Auto 0.5 X10*3/uL (0.1-1.2); Neutrophils Absolute Auto 3.5 x10*3/uL (2.0-8.3); Neutrophils Percent Auto 54.3 % (45-73); Platelet Count 235 X10*3/uL (160-400); Red Blood Count 4.34 X10*6/uL (4.20-5.50); Red Cell Distribution Width 12.6 % (11.0-16.0); White Blood Count 6.4 X10*3/uL (4.8-10.8)
[2022-02-05 14:49] LABS: Alanine Aminotransferase 27 U/L (0-31); Albumin Level 4.3 g/dL (3.5-5.0); Alkaline Phosphatase 66 U/L (39-117); Anion Gap 14 (12-20); Aspartate Amino Transferase 26 U/L (5-31); Bilirubin Total 0.9 mg/dL (0.0-1.0); Blood Urea Nitrogen 9 mg/dL (9-16); Carbon Dioxide 29 mmol/L (22-29); Chloride 103 mmol/L (96-108); Cholesterol 184 mg/dL; Estimated Glomerular Filt Rate > 60; Glucose Fasting 101 mg/dL (60-99); HDL Cholesterol 72 mg/dL; LDL Cholesterol Calculated 89 mg/dl; Potassium 3.6 mmol/L (3.3-5.1); Sodium 142 mmol/L (135-145); Triglycerides 115 mg/dL
[2022-02-05 14:59] LABS: TSH reflex Free T4 1.28 uIU/mL (0.32-4.0)
[2022-02-05 15:00] LABS: Gamma Glutamyl Transpeptidase 36 U/L (7-33)
== END 2022-02-05 12:00 | disposition home or self-care (01) ==
LOC: HO.HMGCLDS 11:59
PROVIDERS: PCP Internal Medicine; Visit Provider Internal Medicine
DX: I10 Essential (primary) hypertension (principal); R79.89 Other specified abnormal findings of blood chemistry; E78.5 Hyperlipidemia, unspecified
CPT/HCPCS: 36415; 80053; 80061; 82977; 84443; 85025

== ENCOUNTER 2022-02-25 11:11 | Outpatient (REF) | payer BC, SELFPAY ==
--- NOTE | ~2022-02-25 | US_ITS ---
EXAMINATION: US PELVIS CLINICAL INFORMATION: Leiomyoma COMPARISON: Pelvic ultrasound 10/31/2021, MR pelvis 12/13/2021 TECHNIQUE: Ultrasound of the pelvis is performed using both transabdominal and transvaginal transducers along with Doppler. Transvaginal imaging is performed due to inadequate visualization transabdominally. FINDINGS: Uterus: The uterus is anteverted and measures 8.6 x 3.1 x 5.6 cm. Nabothian cysts in the cervix. The double wall endometrial thickness is 3 mm. The uterus is smooth in contour and has normal myometrial echogenicity. A 1.8 cm subserosal myoma in the fundus does not appear convincingly changed from prior MR where it measured 1.7 cm. Tiny intramural myoma in the posterior body measuring 6 mm, previously 8 mm on prior MR. A 3.6 cm pedunculated myoma previously measured 4.0 cm possibly minimally decreased. No other myoma definitively identified with certainty despite commercial airline pilot measurements. Adnexa: The right ovary was not identified with certainty however a candidate possible right ovary is unremarkable in appearance. There is no pelvic ascites or fluid collection. Left ovary measures 2.3 x 1.3 x 1.5 cm. Left ovary is unremarkable. US/US pelvic and transvaginal IMPRESSION: Several subserosal and intramural myomas, the largest which may possibly be minimally decreased from prior MR. The right ovary was not identified with certainty however a candidate possible right ovary is unremarkable in appearance. Ovary is unremarkable.
== END 2022-02-25 11:12 | disposition home or self-care (01) ==
LOC: HO.US 11:11
PROVIDERS: Visit Provider Obstetrics & Gynecology
DX: D25.9 Leiomyoma of uterus, unspecified (principal)
CPT/HCPCS: 76830; 76856

== ENCOUNTER 2022-04-19 09:35 | Outpatient (REF) | payer BC, SELFPAY ==
--- NOTE | ~2022-04-19 | MM_ITS ---
EXAMINATION: MM SCREENING DIGITAL BREAST TOMOSYNTHESIS, BILATERAL CLINICAL INFORMATION: Screening. Asymptomatic. The lifetime risk of breast cancer based on the Tyrer-Cuzick Model is 8%. COMPARISON: Mammography: 04/17/2021, 03/31/2020, outside mammography 06/05/2018 ([facility]). TECHNIQUE: Digital breast tomosynthesis is performed in both the craniocaudal and mediolateral oblique views along with computer-aided detection (CAD). Synthesized 2D images are generated from the tomosynthesis. Additional right MLO view is provided. FINDINGS: There are scattered areas of fibroglandular density (ACR BI-RADS breast composition Category b). There are no significant masses, abnormal calcifications, or other abnormalities. Parenchymal pattern is similar to prior studies. There is no developing density or architectural abnormality. The axilla and skin contours are unremarkable. No significant changes. MM/MM tomosynthesis screening BI IMPRESSION: No mammographic evidence of malignancy. ASSESSMENT: BI-RADS 1: Negative RECOMMENDATION: Routine annual mammography screening. This patient's information was entered into a reminder system with a target due date for their next mammogram.
== END 2022-04-19 09:36 | disposition home or self-care (01) ==
LOC: HO.MAMMO 09:35
PROVIDERS: PCP Internal Medicine; Visit Provider Internal Medicine
DX: Z12.31 Encounter for screening mammogram for malignant neoplasm of breast (principal)
CPT/HCPCS: 77063; 77067

== ENCOUNTER 2022-06-20 08:58 | Outpatient (REF) | payer BC, SELFPAY ==
[2022-06-20 11:44] LABS: Alanine Aminotransferase 31 U/L (0-31); Albumin Level 4.2 g/dL (3.5-5.0); Alkaline Phosphatase 74 U/L (39-117); Anion Gap 10 (12-20); Aspartate Amino Transferase 24 U/L (5-31); Bilirubin Total 0.9 mg/dL (0.0-1.0); Blood Urea Nitrogen 14 mg/dL (9-16); Calcium 9.3 mg/dL (8.4-10.2); Carbon Dioxide 30 mmol/L (22-29); Chloride 104 mmol/L (96-108); Cholesterol 185 mg/dL; Estimated Glomerular Filt Rate > 60; Glucose Fasting 95 mg/dL (60-99); HDL Cholesterol 70 mg/dL; LDL Cholesterol Calculated 99 mg/dl; Potassium 3.7 mmol/L (3.3-5.1); Sodium 140 mmol/L (135-145); Total Protein 6.7 g/dL (6.5-8.0); Triglycerides 83 mg/dL
== END 2022-06-20 08:59 | disposition home or self-care (01) ==
LOC: HO.HMGCLDS 08:58
PROVIDERS: PCP Internal Medicine; Visit Provider Internal Medicine
DX: E78.5 Hyperlipidemia, unspecified (principal); J06.9 Acute upper respiratory infection, unspecified; I10 Essential (primary) hypertension
CPT/HCPCS: 36415; 80053; 80061

== ENCOUNTER 2022-07-16 08:00 | Outpatient (RCR) | payer BC, SELFPAY ==
--- NOTE | 2022-06-27 11:03 | MHC.PT.EP ---
[facility] [place] Office [place] Office [place] Office [address] [phone] F: [phone] F: [phone] F: [phone] F: [phone] Physical Therapy Plan of Care Date of Evaluation: Date of Surgery: none Diagnosis: sciatica Assessment: Patient is a 62 year old R handed female who presents with s/s consistent with sciatica. 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 Patient past medical history includes HTN and hepatitis. Current impairments include pain, posture, ROM, strength, activity tolerance and functional mobility. Functional limitations include decreased ability to walk, sit, bend, lift and sleep. Patient is motivated with good rehab potential. Skilled PT will address impairments and functional limitations in order to achieve goals. Frequency and Duration: The patient will be seen 2x/week for 5 weeks Short Term Goals: I with HEP - 2 weeks centralized s/s - 3 weeks TTP absent in piriformis and lumbar spine - 3 weeks Half-Way Goals: Oswestry 10% or better - 5 weeks demo proper floor to waist lift 15# - 5 weeks pain free return to PLOF - 5 weeks Treatment Plan: Modalities to reduce pain, spasms and effusion. Manual therapy to restore motion and function. Therapeutic exercise to improve strength and flexibility. Neuromuscular re-education for posture and balance. Therapeutic activities to return to functional activities of daily living. Electronically signed by: Jacques Cobb, PT Please sign and return to therapist. Thank you for your referral.
--- NOTE | 2022-08-09 09:22 | MHC.PT.DC ---
[facility] [place] Office [place] Office [place] Office [address] [phone] F: [phone] F: [phone] F: [phone] F: [phone] Physical Therapy Discharge Report Diagnosis: sciatica Date of Surgery: none Date of Evaluation: 06/27/22 Date of Discharge: 07/20/22 Treatments to Date: 6 Cancellations to Date: No Shows to Date: Discharge Status: Improved Function Independent with HEP Discharge Summary: 07/16/22: s/s centralized. I with HEP. TTP absent. Proper body mechanics with lift and transfers, pain free PLOF. Appropriate to d/c to HEP at this time. 07/10/22: pt continues to have reduced s/s overall and increase in pain free activities. potential to d/c to HEP in 1 more visit. 07/03/22: s/s minimal today and in knee. unsure if this is from the back or specific to knee. reduced piriformis tissue tension. progress with core strength hand stab NV. 07/01/22: pt progressing well with centralized s/s today. continue to progress as tolerated . Patient is a 62 year old R handed female who presents with s/s consistent with sciatica. 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 Patient past medical history includes HTN and hepatitis. Current impairments include pain, posture, ROM, strength, activity tolerance and functional mobility. Functional limitations include decreased ability to walk, sit, bend, lift and sleep. Patient is motivated with good rehab potential. Skilled PT will address impairments and functional limitations in order to achieve goals. Electronically signed by: Jacques Cobb, PT Please sign and return to therapist. Thank you for your referral.
== END 2022-08-09 09:23 | disposition home or self-care (01) ==
LOC: HO.PTCHIC 08:00
PROVIDERS: PCP Internal Medicine; Visit Provider Internal Medicine
DX: M54.30 Sciatica, unspecified side (principal)
CPT/HCPCS: 97110; 97140; 97162

== ENCOUNTER 2022-11-12 10:42 | Outpatient (REF) | payer BC, SELFPAY ==
[2022-11-12 14:23] LABS: MANUAL DIFF FLAG NO
[2022-11-12 14:36] LABS: Basophils Percent Auto 0.5 % (0-2); Eosinophils Absolute Auto 0.1 X10*3/uL (0.0-0.4); Hematocrit 39.5 % (37.0-47.0); Hemoglobin 12.8 g/dl (12.0-16.0); Imm Gran Abs Auto 0.02 X10*3/uL (0.00-0.03); Imm Gran Pct Auto 0.3 % (0.0-0.4); Lymphocytes Absolute Auto 2.2 X10*3/uL (1.2-4.9); Lymphocytes Percent Auto 36.2 % (20-40); Mean Corpuscular HGB Conc 32.4 g/dl (31.0-35.0); Mean Corpuscular Hemoglobin 29.5 pg (27.0-33.0); Mean Platelet Volume 10.8 fL (9.4-12.3); Monocytes Absolute Auto 0.5 X10*3/uL (0.1-1.2); Monocytes Percent Auto 8.4 % (2-11); Neutrophils Absolute Auto 3.2 x10*3/uL (2.0-8.3); Neutrophils Percent Auto 52.6 % (45-73); Platelet Count 226 X10*3/uL (160-400); Red Blood Count 4.34 X10*6/uL (4.20-5.50); Red Cell Distribution Width 12.5 % (11.0-16.0); White Blood Count 6.1 X10*3/uL (4.8-10.8)
[2022-11-12 15:01] LABS: Alanine Aminotransferase 25 U/L (0-31); Albumin Level 4.3 g/dL (3.5-5.0); Alkaline Phosphatase 56 U/L (39-117); Anion Gap 13 (12-20); Aspartate Amino Transferase 24 U/L (5-31); Bilirubin Total 1.1 mg/dL (0.0-1.0); Blood Urea Nitrogen 13 mg/dL (9-16); Calcium 9.2 mg/dL (8.4-10.2); Carbon Dioxide 29 mmol/L (22-29); Chloride 105 mmol/L (96-108); Cholesterol 181 mg/dL; Estimated Glomerular Filt Rate > 60; Glucose Fasting 95 mg/dL (60-99); HDL Cholesterol 69 mg/dL; LDL Cholesterol Calculated 91 mg/dl; Potassium 3.8 mmol/L (3.3-5.1); Sodium 143 mmol/L (135-145); Total Protein 7.2 g/dL (6.5-8.0); Triglycerides 105 mg/dL
== END 2022-11-12 10:43 | disposition home or self-care (01) ==
LOC: HO.HMGCLDS 10:42
PROVIDERS: PCP Internal Medicine; Visit Provider Internal Medicine
DX: I10 Essential (primary) hypertension (principal); E78.5 Hyperlipidemia, unspecified
CPT/HCPCS: 36415; 80053; 80061; 84443; 85025

== ENCOUNTER 2023-01-22 17:01 | Emergency (ER) | payer BC, SELFPAY ==
--- NOTE | ~2023-01-22 | XR_ITS ---
EXAMINATION: XR CHEST CLINICAL INFORMATION: Chest pain. COMPARISON: 01/12/2019. TECHNIQUE: 2 views of the chest were obtained. FINDINGS: The cardiomediastinal silhouette is normal. There is stable bilateral predominantly upper lung field calcific granulomata. There is no focal lung consolidation or evidence for significant pleural effusion. The bony structures and soft tissues are unremarkable. XR/XR chest 2V IMPRESSION: No active cardiopulmonary disease. No significant interval change.
--- NOTE | ~2023-01-22 | CT_ITS ---
EXAMINATION: CT ANGIOGRAM CHEST WITH AND WITHOUT CONTRAST (CT PULMONARY ANGIOGRAM FOR PE) CLINICAL INFORMATION: Chest pain, shortness of breath, elevated D-dimer(338). COMPARISON: None available. TECHNIQUE: Prior to contrast administration, noncontrast localization images were obtained. Subsequently, multidetector volumetric imaging was performed from the thoracic inlet to below the diaphragms following the administration of 65 mL Omnipaque 350 intravenous contrast. No contrast reaction reported. Sagittal, coronal, and MIP oblique sagittal reformatted images were obtained on the CT workstation, uploaded to PACS, and reviewed. This CT examination was performed using dose optimization techniques as appropriate, variously including the following: *Automated exposure control. *Adjustment of mA and/or kV according to patient size (this includes techniques or standardized protocols for targeted exams where dose is matched to indication/reason for exam; i.e. extremities or head). *Use of iterative reconstruction technique. Total exam dose-length product 284 mGy-cm. FINDINGS: QUALITY OF STUDY/CONTRAST BOLUS: Satisfactory. PULMONARY ARTERIES: No pulmonary emboli. THORACIC AORTA: No aneurysm. LUNG: Numerous scattered bilateral predominantly upper lobe calcific granuloma. There is biapical scarring. No infiltrate. PLEURA: No pleural effusion or pneumothorax. MEDIASTINUM: Normal heart size. No pericardial effusion. No hilar or mediastinal lymphadenopathy. No evidence of septal bowing or right heart strain. CORONARY ARTERY CALCIFICATION: None visualized on this study. CHEST WALL/AXILLA: No axillary or internal mammary lymphadenopathy. OSSEOUS STRUCTURES: No acute or suspicious osseous abnormality. UPPER ABDOMEN: There is a 1.16 cm hypodensity at the dome of the liver likely a small cyst. No reflux of contrast into the hepatic veins to suggest elevated right heart pressures. CT/CT angio chest PE protocol IMPRESSION: 1. No evidence for pulmonary embolism. 2. No active cardiopulmonary disease. VTE: Negative. Fleischner guidelines were followed.
--- NOTE | 2023-01-22 17:06 | ECG_ITS ---
Test Reason : CHEST PAIN Blood Pressure : / mmHG Vent. Rate : 073 BPM Atrial Rate : 073 BPM P-R Int : 184 ms QRS Dur : 080 ms QT Int : 396 ms P-R-T Axes : 062 036 055 degrees QTc Int : 436 ms Normal sinus rhythm Normal ECG No previous ECGs available Referred By: Nicolette Wellington Electronically Signed By:FELISA VOGT
[2023-01-22 17:13] VITALS: BP 138/54; PULSE 81; RESP 13; TEMP 36.8; O2SAT 97; BMI 20.2
--- NOTE | 2023-01-22 17:20 | ED_ITS ---
HPI - Chest Pain General Chief Complaint: Chest Pain Stated Complaint: chest pain, dizzy x1hr Source: patient and EMS Mode of arrival: EMS Limitations: language barrier (Grenadian speaking) History of Present Illness HPI narrative: Patient is a 62 old female who presents to emergency department for evaluation of chest pain and dizziness. Onset of symptoms was at 15:45. She reports approximately 15 minutes prior to her symptom onset she had walked up stairs at work and was sitting in a meeting. She had sudden onset of dizziness while sitting down, described as a room spinning sensation and brief vision change, feeling as though she could not see the monitor normally. She then developed chest pain central/left-sided described as a burning and aching sensation with palpitations. The pain is nonradiating. She endorsed mild shortness of breath at this time. She received aspirin 324 mg p.o., and a single spray of nitro pre-hospital from EMS with significant improvement in her symptoms. Dizziness has resolved, chest pain is minimal at this time 06/11, and she endorses a headache now. Related Data Previous Rx's Medication Instructions Recorded albuterol sulfate 90 mcg/actuation 2 puff inhalation Q6H PRN 05/03/21 aerosol inhaler shortness of breath or wheezing #6.7 grams atenolol 50 mg tablet 50 mg PO BID #180 tabs 10/16/22 atorvastatin 80 mg tablet 80 mg PO DAILY #90 tabs 10/16/22 sertraline 50 mg tablet 50 mg PO DAILY #90 tabs 10/16/22 amlodipine 5 mg-benazepril 20 mg 1 cap PO DAILY #90 caps 11/14/22 capsule omeprazole 20 mg capsule,delayed 20 mg PO DAILY #90 caps 11/14/22 release Allergies Allergy/AdvReac Type Severity Reaction Status Date / Time No Known Allergies Allergy Verified 11/12/22 09:50 Review of Systems Review of Systems: Constitutional : No Weight loss, No Fever, No Chills ENT/Mouth :? No sore throat, No Rhinorrhea Eyes: No Eye Pain, No Swelling Cardiovascular : pos Chest Pain, pos SOB, no Dyspnea on Exertion, No Orthopnea, No Edema, positive Palpitations Respiratory : No Cough, No Sputum Gastrointestinal : No Nausea, No Vomiting, No Diarrhea, No abdominal Pain, No Hematochezia, No Melena Genitourinary : No Dysuria, No Urinary Frequency Musculoskeletal : No joint pain, No Myalgias, No Joint Swelling Skin : No Skin Lesions, No rash Neuro : No Weakness, No Numbness, positive Dizziness, positive Headache Psych : No Anxiety/Panic, No Depression Heme/Lymph: No Bruising, No Lymphadenopathy Endocrine : No Polyuria, No Polydipsia Yes all other systems are reviewed and are negative [facility] Past Medical History Attestation statement: The following information was validated with the patient. 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 Mother No problems noted. Social History Social History Housing: House Alcohol intake: never Patient Tobacco Use Status: Former Tobacco user Tobacco use type: Cigarette Smoked in Last 30 Days: No e-Cigarette/Vaping Use: Never Used Second Hand Smoke Exposure: No Use of substances other than those prescribed or required for medical reasons: No Advance Directives: No Advance Directives Information Provided: No Current occupational status: employed Cognitive needs: No Hearing needs: No Vision needs: Yes Physical Exam Vital Signs: Vital Signs: Last Vital Signs Temp 97.8 F 01/22/23 23:46 Pulse 52 01/22/23 23:46 Resp 18 01/22/23 23:46 BP 119/45 L 01/22/23 23:46 Pulse Ox 95 01/22/23 23:46 O2 Del Method Room Air 01/22/23 23:46 BMI result Body Mass Index 20.2 Appearance: Alert.?Oriented to person, place and time. No acute distress.?Normal affect. Eyes: Pupils equal, round and reactive to light.? ENT: Pharynx normal.?? Neck: Normal inspection.? Neck supple.?? CVS: Heart sounds normal. Normal heart rate and rhythm.? Pulses normal.?? Respiratory: No respiratory distress.? Lung sounds clear to auscultation bilaterally?? Abdomen: Soft and non-tender. Normoactive bowel sounds. Skin: Skin warm and dry.? Normal skin color.? ? Extremities: No lower extremity edema.? No calf ttp? Neuro: Moves all extremities spontaneously. Sensation intact bilaterally. CN II- XII intact. No focal neuro deficits. Ambulates with normal steady gait. Course Reevaluation(s) Reevaluation #1: Troponin 2.8, EKG revealing normal sinus rhythm without any ischemic abnormal ities, will obtain delta troponin for further evaluation. CBC reveals no leukocytosis or anemia. CMP is overall unremarkable. Lipase is within normal limits. Chest x-ray is without acute cardiopulmonary abnormality. D-dimer 338, greater than age adjusted cut-off, will obtain CTA to exclude pulmonary embolism Reevaluation #2: CTA negative for pulmonary embolism. repeat troponin of 4.2. Discussed this case with ED attending, Dr. Tran, open risk factors, will obtain additional troponin and 1 hour, and if within normal range will discharge with recommendation for outpatient follow-up with PCP/Cardiology. Patient was updated and agreeable with this plan of care. Medications Administered Discontinued Medications Generic Name Dose Route Start Last Admin Trade Name Freq PRN Reason Stop Dose Admin Sodium Chloride 1,000 mls @ 999 mls/hr 01/22/23 18:45 01/22/23 20:41 Ns IV 01/22/23 19:45 Infused .Q1H1M FADY Infusion Iohexol 100 ml 01/22/23 20:35 01/22/23 20:36 Iohexol 350 Mg/Ml 100 Ml Infus..Btl IV 01/22/23 20:36 65 ml ONCE ONE Administration Medical Decision Making Medical Decision Making [facility] Narrative: Patient is a 62-year-old female with past medical history of hypertension, hyperlipidemia, GERD presenting to the emergency department for evaluation of chest pain and dizziness as per HPI. She received nitro and aspirin you prior t o arrival with near resolution in her symptoms. Chest pain is minimal, dizziness has resolved, endorsing a mild headache. She denies any precipitating symptoms. Denies any history of similar symptoms in the past. At the time examination she is overall well-appearing, nontoxic, afebrile, without tachycardia. No focal neurological deficits. Will obtain CBC to evaluate for leukocytosis/ anemia, CMP and lipase to evaluate for abnormal electrolytes /abnormal renal function/ abnormal hepatic/biliary function, EKG and troponin to evaluate for ischemia/ACS. Chest x-ray to evaluate for consolidation/ infiltrate/ mass/ pulmonary congestion and Urinalysis. Differential Diagnosis Differential Diagnoses: The differential diagnosis associated with the presentation includes (ACS, PE, pneumonia, vertigo, CVA, anemia, electrolyte abnormality) Admission/Observation Consideration of admission/observation: Escalation of care including admission/observation considered (I considered admission for chest pain, see course narrative for further detail) Lab Data MDM Lab Attestation statement: I reviewed the patient's lab results. (See course narrative for further detail) 01/22/23 17:36 01/22/23 17:35 Labs: Lab Results 01/22/23 01/22/23 01/22/23 Range/Units 17:35 17:35 17:35 WBC (4.8-10.8) X10*3/uL RBC (4.20-5.50) X10*6/uL Hgb (12.0-16.0) g/dl Hct (37.0-47.0) % MCV (80.0-98.0) fL MCH (27.0-33.0) pg MCHC (31.0-35.0) g/dl RDW (11.0-16.0) % Plt Count (160-400) X10*3/uL MPV (9.4-12.3) fL Immature Gran % (Auto) (0.0-0.4) % Neut % (Auto) (45-73) % Lymph % (Auto) (20-40) % Whitman % (Auto) (2-11) % Eos % (Auto) (0-4) % Baso % (Auto) (0-2) % Lymph # (Auto) (1.2-4.9) X10*3/uL Whitman # (Auto) (0.1-1.2) X10*3/uL Eos # (Auto) (0.0-0.4) X10*3/uL Baso # (Auto) (0.0-0.2) X10*3/uL Abs Immat Gran (auto) (0.00-0.03) X10*3/uL Absolute Neuts (auto) (2.0-8.3) x10*3/uL Absolute Nucleated RBC (0.0-0.012) X10*3/uL Nucleated RBC % (auto) (0.0-0.2) /100WBC PT 10.7 L (11.1-13.3) SEC INR 0.9 (0.9-1.1) D-Dimer High Sensitivty 338 NG/ML Sodium 141 (135-145) mmol/L Potassium 3.8 (3.3-5.1) mmol/L Chloride 108 (96-108) mmol/L Carbon Dioxide 28 (22-29) mmol/L Anion Gap 9 L (12-20) BUN 13 (9-16) mg/dL Creatinine 0.69 (0.5-1.4) mg/dL Estim Creat Clear Calc 56.1 Estimated GFR > 60 Random Glucose 152 H (60-115) mg/dL Calcium 9.4 (8.4-10.2) mg/dL Magnesium 1.8 (1.6-2.6) mg/dL Total Bilirubin 0.5 (0.0-1.0) mg/dL AST 22 (5-31) U/L ALT 25 (0-31) U/L Alkaline Phosphatase 89 (39-117) U/L Troponin I High Sens 2.8 (<3.5-17.0) ng/L B-Natriuretic Peptide (<100) pg/mL Total Protein 6.8 (6.5-8.0) g/dL Albumin 4.1 (3.5-5.0) g/dL Lipase 37 (8-78) U/L 01/22/23 01/22/23 01/22/23 Range/Units 17:35 17:36 21:35 WBC 6.8 (4.8-10.8) X10*3/uL RBC 4.17 L (4.20-5.50) X10*6/uL Hgb 12.5 (12.0-16.0) g/dl Hct 37.2 (37.0-47.0) % MCV 89.2 (80.0-98.0) fL MCH 30.0 (27.0-33.0) pg MCHC 33.6 (31.0-35.0) g/dl RDW 12.3 (11.0-16.0) % Plt Count 222 (160-400) X10*3/uL MPV 10.0 (9.4-12.3) fL Immature Gran % (Auto) 0.1 (0.0-0.4) % Neut % (Auto) 70.0 (45-73) % Lymph % (Auto) 22.2 (20-40) % Whitman % (Auto) 6.2 (2-11) % Eos % (Auto) 1.2 (0-4) % Baso % (Auto) 0.3 (0-2) % Lymph # (Auto) 1.5 (1.2-4.9) X10*3/uL Whitman # (Auto) 0.4 (0.1-1.2) X10*3/uL Eos # (Auto) 0.1 (0.0-0.4) X10*3/uL Baso # (Auto) 0.0 (0.0-0.2) X10*3/uL Abs Immat Gran (auto) 0.01 (0.00-0.03) X10*3/uL Absolute Neuts (auto) 4.8 (2.0-8.3) x10*3/uL Absolute Nucleated RBC 0.000 (0.0-0.012) X10*3/uL Nucleated RBC % (auto) 0.0 (0.0-0.2) /100WBC PT (11.1-13.3) SEC INR (0.9-1.1) D-Dimer High Sensitivty NG/ML Sodium (135-145) mmol/L Potassium (3.3-5.1) mmol/L Chloride (96-108) mmol/L Carbon Dioxide (22-29) mmol/L Anion Gap (12-20) BUN (9-16) mg/dL Creatinine (0.5-1.4) mg/dL Estim Creat Clear Calc Estimated GFR Random Glucose (60-115) mg/dL Calcium (8.4-10.2) mg/dL Magnesium (1.6-2.6) mg/dL Total Bilirubin (0.0-1.0) mg/dL AST (5-31) U/L ALT (0-31) U/L Alkaline Phosphatase (39-117) U/L Troponin I High Sens 4.2 (<3.5-17.0) ng/L B-Natriuretic Peptide 82 (<100) pg/mL Total Protein (6.5-8.0) g/dL Albumin (3.5-5.0) g/dL Lipase (8-78) U/L 01/22/23 Range/Units 23:51 WBC (4.8-10.8) X10*3/uL RBC (4.20-5.50) X10*6/uL Hgb (12.0-16.0) g/dl Hct (37.0-47.0) % MCV (80.0-98.0) fL MCH (27.0-33.0) pg MCHC (31.0-35.0) g/dl RDW (11.0-16.0) % Plt Count (160-400) X10*3/uL MPV (9.4-12.3) fL Immature Gran % (Auto) (0.0-0.4) % Neut % (Auto) (45-73) % Lymph % (Auto) (20-40) % Whitman % (Auto) (2-11) % Eos % (Auto) (0-4) % Baso % (Auto) (0-2) % Lymph # (Auto) (1.2-4.9) X10*3/uL Whitman # (Auto) (0.1-1.2) X10*3/uL Eos # (Auto) (0.0-0.4) X10*3/uL Baso # (Auto) (0.0-0.2) X10*3/uL Abs Immat Gran (auto) (0.00-0.03) X10*3/uL Absolute Neuts (auto) (2.0-8.3) x10*3/uL Absolute Nucleated RBC (0.0-0.012) X10*3/uL Nucleated RBC % (auto) (0.0-0.2) /100WBC PT (11.1-13.3) SEC INR (0.9-1.1) D-Dimer High Sensitivty NG/ML Sodium (135-145) mmol/L Potassium (3.3-5.1) mmol/L Chloride (96-108) mmol/L Carbon Dioxide (22-29) mmol/L Anion Gap (12-20) BUN (9-16) mg/dL Creatinine (0.5-1.4) mg/dL Estim Creat Clear Calc Estimated GFR Random Glucose (60-115) mg/dL Calcium (8.4-10.2) mg/dL Magnesium (1.6-2.6) mg/dL Total Bilirubin (0.0-1.0) mg/dL AST (5-31) U/L ALT (0-31) U/L Alkaline Phosphatase (39-117) U/L Troponin I High Sens 4.5 (<3.5-17.0) ng/L B-Natriuretic Peptide (<100) pg/mL Total Protein (6.5-8.0) g/dL Albumin (3.5-5.0) g/dL Lipase (8-78) U/L Independent Interpretation I performed an independent interpretation of an: EKG and Plain X-Ray (I have personally interpreted chest x-ray and agree with radiologist impression, no evidence of pneumonia, pleural effusion, pulmonary congestion) Interpretation: Rate: 73 Rhythm:? Normal sinus rhythm [place]:? Normal Normal P waves.? Normal JONO.?? Normal QRS complex.?? ST T wave :??No ST elevation, no ST depression, no T-wave inversion qTC: 436 prior studies:? None available for review The study has been interpreted contemporaneously by me. Radiology Impression Discussion of test interpretation with radiology: I have reviewed the radiologist's reading. Radiologist Impression: XR/XR chest 2V IMPRESSION: No active cardiopulmonary disease. ? No significant interval change. CT/CT angio chest PE protocol IMPRESSION: 1. No evidence for pulmonary embolism. ? 2. No active cardiopulmonary disease. ? VTE: Negative. Discharge Plan Discharge Clinical Impression: Chest pain Patient Disposition: Home, Self-Care Instructions: Chest Pain (ED) Additional Instructions: As discussed, please call Cardiology to arrange for a follow-up appointment, I provided their office information for you. You should return back to the emergency department any new or worsening symptoms or concerns. Consult your primary care doctor to arrange for a follow-up visit within the next 1-2 days. Prescriptions: No Action atenolol 50 mg tablet 50 mg PO BID Qty: 180 3RF atorvastatin 80 mg tablet 80 mg PO DAILY Qty: 90 3RF sertraline 50 mg tablet 50 mg PO DAILY Qty: 90 3RF omeprazole 20 mg capsule,delayed release(DR/EC) 20 mg PO DAILY Qty: 90 3RF amlodipine-benazepril 5-20 mg capsule 1 cap PO DAILY Qty: 90 3RF albuterol sulfate 90 mcg/actuation HFA aerosol inhaler 2 puff inhalation Q6H PRN (Reason: shortness of breath or wheezing) Qty: 6.7 0RF Referrals: Naa Avelar MD [Primary Care Provider] - Surya Gant MD [Physician] -
[2023-01-22 17:43] LABS: MANUAL DIFF FLAG NO
[2023-01-22 17:45] LABS: Basophils Percent Auto 0.3 % (0-2); Eosinophils Absolute Auto 0.1 X10*3/uL (0.0-0.4); Eosinophils Percent Auto 1.2 % (0-4); Hematocrit 37.2 % (37.0-47.0); Hemoglobin 12.5 g/dl (12.0-16.0); Imm Gran Abs Auto 0.01 X10*3/uL (0.00-0.03); Imm Gran Pct Auto 0.1 % (0.0-0.4); Lymphocytes Absolute Auto 1.5 X10*3/uL (1.2-4.9); Lymphocytes Percent Auto 22.2 % (20-40); Mean Corpuscular HGB Conc 33.6 g/dl (31.0-35.0); Mean Corpuscular Volume 89.2 fL (80.0-98.0); Monocytes Absolute Auto 0.4 X10*3/uL (0.1-1.2); Monocytes Percent Auto 6.2 % (2-11); Neutrophils Absolute Auto 4.8 x10*3/uL (2.0-8.3); Platelet Count 222 X10*3/uL (160-400); Red Blood Count 4.17 X10*6/uL (4.20-5.50); Red Cell Distribution Width 12.3 % (11.0-16.0); White Blood Count 6.8 X10*3/uL (4.8-10.8)
[2023-01-22 17:53] LABS: INTERNATIONAL NORM RATIO 0.9 (0.9-1.1); Prothrombin Time 10.7 SEC (11.1-13.3)
[2023-01-22 18:01] LABS: Alanine Aminotransferase 25 U/L (0-31); Albumin Level 4.1 g/dL (3.5-5.0); Alkaline Phosphatase 89 U/L (39-117); Anion Gap 9 (12-20); Aspartate Amino Transferase 22 U/L (5-31); Bilirubin Total 0.5 mg/dL (0.0-1.0); Blood Urea Nitrogen 13 mg/dL (9-16); Calcium 9.4 mg/dL (8.4-10.2); Carbon Dioxide 28 mmol/L (22-29); Chloride 108 mmol/L (96-108); Creatinine Clr Calc Pharmacy 56.1; Estimated Glomerular Filt Rate > 60; Glucose Random 152 mg/dL (60-115); Lipase 37 U/L (8-78); Magnesium 1.8 mg/dL (1.6-2.6); Potassium 3.8 mmol/L (3.3-5.1); Sodium 141 mmol/L (135-145); Total Protein 6.8 g/dL (6.5-8.0)
[2023-01-22 18:08] LABS: B Type Natriuretic Peptide 82 pg/mL (<100)
[2023-01-22 18:09] LABS: Troponin-I High Sensitivity 2.8 ng/L (<3.5-17.0)
[2023-01-22 18:16] LABS: D Dimer High Sensitivity 338 NG/ML
[2023-01-22] MEDS: 0.9 % Sodium Chloride 1,000 ML 999 ML IV (19:18)
[2023-01-22] MEDS: iohexoL 350 MG/ML 100 ML INFUS..BTL IV (20:36)
[2023-01-22 22:05] LABS: Troponin-I High Sensitivity 4.2 ng/L (<3.5-17.0)
[2023-01-22 23:46] VITALS: BP 119/45; PULSE 52; RESP 18; TEMP 36.6; O2SAT 95
[2023-01-23 00:16] LABS: Troponin-I High Sensitivity 4.5 ng/L (<3.5-17.0)
== END 2023-01-23 00:36 | disposition home or self-care (01) ==
PROVIDERS: Nurse Practitioner Family; Emergency Provider Emergency Medicine; PCP Internal Medicine
DX: R07.89 Other chest pain (principal); R42 Dizziness and giddiness; R11.2 Nausea with vomiting, unspecified; R06.02 Shortness of breath; Z79.899 Other long term (current) drug therapy
CPT/HCPCS: 36415; 71046; 71275; 80053; 83690; 83735; 83880; 84484; 85025; 85379; 85610; 93005; 96360; 99284; 99285; Q9967

== ENCOUNTER 2023-01-23 12:52 | Outpatient (AMB) | payer BC, SELFPAY ==
--- NOTE | 2023-01-23 13:12 | A.OFFPC_ITS ---
Vital Signs 01/23/23 13:16 Height 5 ft 4 in Weight 182 lb BMI 31.2 BP 126/82 Blood Pressure Location Lt brachial Position Sitting Pulse 69 Pulse Source Pulse Oximeter Pulse Oximetry (%) 97 Oxygen Delivery Method Room Air Intake Visit Reasons: ER follow up Intake Note: Pt is here today for ER follow up visit.Pt states that she had an episode of dizziness and feeling out of balance at work and she was taken by ambulance to hospital. Pt states that she has a headache and she gets episodes of choking and cant catch a breath.Pt states that she feels like she has something stuck in her throat/chest. Allergies No Known Allergies Allergy (Verified 11/12/22 09:50) Medication List - Last Reconciled 01/23/23 by Naa Avelar MD albuterol sulfate 90 mcg/actuation 2 puffs inhalation Q6H PRN amlodipine-benazepril 5-20 mg 1 cap PO DAILY atenolol 50 mg PO BID atorvastatin 80 mg PO DAILY omeprazole 20 mg PO DAILY sertraline 50 mg PO DAILY Tobacco use date assessed: 11/12/22 Dental Screening Dental Screen Date: 01/23/23 Did you have a dental visit in the last 12 months?: Yes Did you have a dental problem in the last 6 months where you did not have access to dental care?: No Was dental information given to patient?: Patient has dentist HPI ER follow up HPI Details Pt presents for f/u of ER visit for CP/vertigo while at work. Cardiac w/u was negative. Patient reports episodes of left-sided chest pain needle-like sensation on and off occasional shortness of breath. Patient also had episode of choking like sensation and intermittent dysphagia. She has been taking omeprazole regularly. Patient denies odynophagia hematochezia melena or abdominal pain. 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 Mother No problems noted. Social History Housing: House Alcohol intake: never Patient Tobacco Use Status: Former Tobacco user Tobacco use type: Cigarette e-Cigarette/Vaping Use: Never Used Second Hand Smoke Exposure: No Current occupational status: employed Cognitive needs: No Hearing needs: No Vision needs: Yes Questionnaire Thrive Questionnaire Date Thrive assessed: 06/21/22 CHRISS-7 AMB Questionnaire CHRISS-7 Date CHRISS - 7 assessed: 06/21/22 Source: Developed by Drs. Blaine Daily, Carleen Barnett, Alton Hebert and colleagues, with an educational gibran from [employer]. Review of Systems Const All systems reviewed & are unremarkable except as noted in HPI and below Reports no additional complaints Eyes Reports no additional complaints ENT Reports no additional complaints Resp Reports no additional complaints GI Reports no additional complaints Reports no additional complaints Physical exam (Primary Care) Vital Signs: Last Vital Signs Pulse 69 01/23/23 13:16 BP 126/82 01/23/23 13:16 Pulse Ox 97 01/23/23 13:16 Oxygen Delivery Method Room Air 01/23/23 13:16 BMI result Body Mass Index 31.2 Tobacco/Smoking Status: Tobacco use Status Tobacco use date assessed 11/12/22 01/23/23 13:13 Patient Tobacco Use Status Former Tobacco user 01/23/23 13:13 Tobacco use type Cigarette 01/23/23 13:13 e-Cigarette/Vaping Use Never Used 01/23/23 13:13 Thrive Assessment: Date of Thrive Assessment Date Thrive assessed 06/21/22 01/23/23 13:13 Const General: no acute distress [facility] General nose exam: Normal external nose present Face and sinus: Yes normal facial exam Mouth: Normal oral and palatal mucosa present Neck Neck: Yes no lymphadenopathy and Yes supple Resp Effort & Inspection: normal respiratory effort Auscultation: clear to auscultation bilaterally Cardio Rhythm: regular rhythm Heart sounds: S1 normal heart sound present and S2 normal heart sound present GI Inspection: Yes normal to inspection Palpation (GI): Soft to palpation Percussion: Yes normal to percussion Auscultation: normal bowel sounds Assessment and Plan Assessment & Plan (1) Chest pain: Code(s): R07.9 - Chest pain, unspecified Plan: Refer nuclear stress (2) Dysphagia: Code(s): R13.10 - Dysphagia, unspecified Plan: Referred to GI for evaluation (3) GERD (gastroesophageal reflux disease): Code(s): K21.9 - Gastro-esophageal reflux disease without esophagitis Plan: Continue PPI and referred to GI Orders: Orders CA stress test Today R07.9 - Chest pain, unspecified NM cardiolite stress test Today R07.9 - Chest pain, unspecified Referrals Gastroenterology Referral K21.9 - Gastro-esophageal reflux disease without esophagitis, R13.10 - Dysphagia, unspecified Coding Level of Care Code Est Pt Level 4 (09906) Diagnoses Chest pain R07.9 Dysphagia R13.10 GERD (gastroesophageal reflux disease) K21.9
[2023-01-23 13:16] VITALS: BP 126/82; PULSE 69; O2SAT 97; BMI 31.2
== END 2023-01-23 14:18 | disposition home or self-care (01) ==
PROVIDERS: PCP Internal Medicine; Visit Provider Internal Medicine
DX: R07.9 Chest pain, unspecified (principal); R13.10 Dysphagia, unspecified; K21.9 Gastro-esophageal reflux disease without esophagitis
CPT/HCPCS: 99214

== ENCOUNTER 2023-01-29 09:20 | Outpatient (AMB) | payer BC, SELFPAY ==
--- NOTE | 2023-01-29 09:32 | MHC.OFFVIS ---
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 Patient reports that she has had history of choking the past. Patient states that she went to the emergency room last week for chest pain, headache choking-like episode. Feeling out of breath. Negative exam in the ER. Troponins were negative. Patient was refer to volcanology professor and has an appointment with him in 2 weeks. Patient reports that prior to that episode she had similar episode when she was unable to take a breath and felt like she was choking after laughing episode. Patient is taking omeprazole every morning for acid reflux. Patient reports that epigastric burning and dyspepsia has gone away. Feels like omeprazole is helping with acid reflux. 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 Mother No problems noted. Social History Housing: House Alcohol intake: never Patient Tobacco Use Status: Former Tobacco user Tobacco use type: Cigarette e-Cigarette/Vaping Use: Never Used Second Hand Smoke Exposure: No Current occupational status: employed Cognitive needs: No Hearing needs: No Vision needs: Yes Review of Systems Const Denies weight gain and Denies weight loss ENT Reports no additional complaints, Denies dysphagia and Denies odynophagia Card Reports no additional complaints and Reports dyspnea Resp Reports dyspnea GI Denies abdominal pain, Denies belching, Denies melena, Denies bloating, Denies change in bowel habits, Denies dysphagia, Denies excessive flatus, Denies dyspepsia, Denies heartburn, Denies diarrhea, Denies loose stools, Denies nausea, Denies odynophagia and Denies vomiting Reports no additional complaints Musc Reports no additional complaints Neuro Reports no additional complaints Psych Reports no additional complaints Endo Reports no additional complaints Physical Exam Vital Signs: Last Vital Signs Pulse 63 01/29/23 09:33 BP 137/65 01/29/23 09:33 BMI result Body Mass Index 31.7 Const General: healthy appearing, no acute distress and well developed Nutritional Appearance: obese Orientation/consciousness: patient oriented x3 HEENT Head: Yes normal to inspection, Yes normocephalic and Yes atraumatic Face and sinus: Yes normal facial exam Mouth: Normal oral and palatal mucosa present Throat: Yes posterior oropharynx normal, Yes tonsils normal and Yes uvula midline Eyes General: appearance normal, both eyes and all related structures Neck Neck: Yes normal visual inspection, Yes full ROM and Yes trachea midline Thyroid: Thyroid normal Resp Effort & Inspection: normal respiratory effort, able to speak in complete sentences, no tracheal deviation and symmetric chest movement Auscultation: clear to auscultation bilaterally Cardio Rate: regular rate Heart sounds: S1 normal heart sound present and S2 normal heart sound present GI Inspection: Yes normal to inspection, No distended and Yes obesity Palpation (GI): Soft to palpation, not firm, nontender and No hepatosplenomegaly present Auscultation: normal bowel sounds General: Yes no CVA tenderness Back/Spine/Pelvis Back: no CVA tenderness Skin General skin exam: elasticity normal, turgor normal and dry skin Neuro General: patient oriented x3 Psych Appearance: grossly normal Mental Status: mental status grossly normal Speech and movement: Normal speech and movement present Assessment & Plan Assessment & Plan (1) Dyspnea: Code(s): R06.00 - Dyspnea, unspecified Qualifiers: Dyspnea type: other forms of dyspnea Qualified Code(s): R06.09 - Other forms of dyspnea Plan: Referral to pulmonology. 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 Patient's states that she comes home and smells like or will. Patient reports increase in shortness of breath with exertion and at rest. Her dyspnea feels like spasm triggered very easy. Bronchospasm provoked either by GERD or environmental she is on atenolol (2) Dysphagia: Code(s): R13.10 - Dysphagia, unspecified Qualifiers: Dysphagia type: esophageal phase Qualified Code(s): R13.19 - Other dysphagia Plan: Patient reports that her dysphagia has got better. Patient denies choking like episodes although had symptoms of dyspnea. Will send patient for barium swallow to rule out acid reflux (3) GERD (gastroesophageal reflux disease): Code(s): K21.9 - Gastro-esophageal reflux disease without esophagitis Qualifiers: Esophagitis presence: esophagitis presence not specified Qualified Code(s): K21.9 - Gastro-esophageal reflux disease without esophagitis Plan: Continue taking omeprazole 20 mg half an hour before breakfast. Patient also can start taking famotidine at bedtime. Patient was encouraged to avoid dietary triggers and late night snacking. Staying upright for minimum 3 hours after meals discussed with patient. I will see patient in 4 weeks. Please bulk upper endoscopy for patient. Patient is going to see volcanology professor and she will need to be cleared before going for procedure. Please book an appointment with blindstitch lapel padder. Patient is agreeable to plan of care and verbalizes understanding of instructions. She was given the opportunity to ask questions and all questions answered. Orders: Orders [place] barium swallow modified Today R13.10 - Dysphagia, unspecified Referrals Pulmonary Medicine Referral R06.00 - Dyspnea, unspecified Medications: New famotidine (Pepcid) 20 mg PO BEDTIME 30 tabs 3RF K21.9 - Gastro-esophageal reflux disease without esophagitis Coding Level of Care Code New Pt Level 4 (91722) Diagnoses Dyspnea R06.09 Dyspnea type: other forms of dyspnea Dysphagia R13.19 Dysphagia type: esophageal phase GERD (gastroesophageal reflux disease) K21.9 Esophagitis presence: esophagitis presence not specified Time Spent (min) 45 Comment 30 minutes spent with patient and additional 15 minutes spent reviewing her records
[2023-01-29 09:33] VITALS: BP 137/65; PULSE 63; BMI 31.7
== END 2023-01-29 10:13 | disposition home or self-care (01) ==
PROVIDERS: PCP Internal Medicine; Visit Provider Nurse Practitioner Family
DX: R06.09 Other forms of dyspnea (principal); R13.19 Other dysphagia; K21.9 Gastro-esophageal reflux disease without esophagitis
CPT/HCPCS: 99204

== ENCOUNTER → 2023-01-29 09:20 | Outpatient (BNVA) | payer BC, SELFPAY | PROVIDERS: PCP Internal Medicine; Visit Provider Nurse Practitioner Family ==

== ENCOUNTER 2023-02-07 07:45 | Outpatient (AMB) | payer BC, SELFPAY ==
[2023-02-07 08:15] VITALS: BP 120/42; PULSE 60; BMI 31.9
--- NOTE | 2023-02-07 08:15 | A.OFFVIS_ITS ---
Intake Vital Signs 02/07/23 08:15 Height 5 ft 4 in Weight 186 lb 1.122 oz BMI 31.9 BP 120/42 L Blood Pressure Location Lt brachial Position Sitting Pulse 60 Pulse Source Pulse Oximeter Intake Visit Reasons: [facility] ED Follow up/Chest pain Intake Note: [facility] ED f/up chest pain Salon/Spa Manager Required: Yes Salon/Spa Manager Name: Bhupinder sands [id number] Allergies No Known Allergies Allergy (Verified 02/07/23 08:21) Medication List - Last Reconciled 02/07/23 by DANIEL Roland amlodipine-benazepril 5-20 mg 1 cap PO DAILY atenolol 50 mg PO BID atorvastatin 80 mg PO DAILY famotidine (Pepcid) 20 mg PO BEDTIME omeprazole 20 mg PO DAILY sertraline 50 mg PO DAILY HPI [facility] Follow up/Chest pain HPI Details Elsa is a 63-year-old female with past medical history of hypertension, hyperlipidemia, mild obesity who was recently seen in the [facility] Emergency Room for dizziness and chest discomfort that started when she was at work. She ruled out for ACS and pulmonary embolism. She was continued on her usual home medications and referred to Cardiology for further evaluation. Today she presents for cardiology consultation. She tells me that on the day she went to the emergency room she was at work and started to feel dizzy. She then got a pain in her mid chest which was persistent. Her coworkers called EMS, who gave her aspirin and nitroglycerin spray with some improvement in her symptom. Her dizziness had resolved by the time she was in the ER. Since that time she has not had any recurrent dizziness. She has had some sharp intermittent pains in the left breast region which have occurred in the daytime with activity. There on like the pain that she had at work that day. She denies getting her brief sharp pains at rest or during the night. No palpitations, PND, orthopnea or edema. No presyncope, syncope, falls. She has no cardiac history. Cardiac risks of hypertension and hyperlipidemia. She denies history of diabetes. Nonsmoker. Rare alcohol use. 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 Able to tolerate stair climbing with only mild shortness of breath. She does no routine exercise. 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 Mother No problems noted. Social History Housing: House Alcohol intake: never Patient Tobacco Use Status: Former Tobacco user Tobacco use type: Cigarette e-Cigarette/Vaping Use: Never Used Second Hand Smoke Exposure: No Current occupational status: employed Cognitive needs: No Hearing needs: No Vision needs: Yes Review of Systems Const All systems reviewed & are unremarkable except as noted in HPI and below ENT Reports dizziness Card Reports chest pain, Denies chest pain at rest, Denies chest pain with activity, Denies rapid heart rate, Denies pedal edema, Denies edema, Denies leg edema, Denies lightheadedness, Denies palpitations, Denies dyspnea, Denies dyspnea on exertion and Denies orthopnea Resp Denies cough, Denies dyspnea and Denies dyspnea on exertion GI Denies hematochezia and Denies change in stool character Musc Denies abnormal gait, Reports limited range of motion, Reports muscle cramps, Denies muscle weakness, Denies numbness, Denies radiating pain into limb, Denies stiffness and Denies tingling Neuro Denies abnormal gait, Reports dizziness, Denies numbness and Denies tingling Endo Denies palpitations Physical Exam Vital Signs: Last Vital Signs Pulse 60 02/07/23 08:15 BP 120/42 L 02/07/23 08:15 BMI result Body Mass Index 31.9 Const General: cooperative, healthy appearing, comfortable and no acute distress Orientation/consciousness: patient oriented x3 Neck Neck: Yes normal visual inspection Resp Effort & Inspection: normal respiratory effort Auscultation: clear to auscultation bilaterally, no crackles, no rales, no rhonchi and no wheezes Cardio Jugular venous distension: no JVD Rate: regular rate Rhythm: regular rhythm Heart sounds: S1 normal heart sound present, S2 normal heart sound present, no murmurs and no rubs Neuro General: patient oriented x3 Extrem General: Yes normal to inspection and No no pedal edema Psych Appearance: grossly normal Mental Status: mental status grossly normal Speech and movement: Normal speech and movement present Assessment & Plan Assessment & Plan (1) Chest pain: Code(s): R07.9 - Chest pain, unspecified Qualifiers: Chest pain type: precordial pain Qualified Code(s): R07.2 - Precordial pain Plan: Episode of chest discomfort occurring at work on 01/22/2023. Pre seated by maru. EMS called and she was treated with aspirin and nitroglycerin spray with some improvement in symptom. Once in the emergency room she underwent evaluation and ruled out for ACS. Troponin levels were normal. EKG showed sinus rhythm with no acute ST or T-wave abnormalities. Chest x-ray was normal, BNP 82, D-dimer elevated at 338 followed by CTA of chest showing no PE. Her blood pressure was 119/45. She was continued on her usual home atenolol, atorvastatin, amlodipine/benazepril. She is being seen for cardiology consultation today. She has not had recurrent lightheadedness but has noted some periodically sharp pains in her left breast region occurring randomly throughout the day. No clear exertional symptom. Cardiac risks of hypertension , hyperlipidemia, obesity. No known history of heart disease. Will check an echocardiogram to assess for any structural heart disease. Will check exercise stress test to evaluate for any ischemia, already has been ordered by PCP. Signs and symptoms of angina reviewed. Emergency care if needed for symptoms. Continue current med management without change. (2) HTN (hypertension): Code(s): I10 - Essential (primary) hypertension Qualifiers: Hypertension type: primary hypertension Qualified Code(s): I10 - Essential (primary) hypertension Plan: [place] blood pressure goal less than 130/85. Blood pressure good at present, 120/42. She is on atenolol and amlodipine/benazepril combination. No med changes made (3) Hyperlipidemia: Code(s): E78.5 - Hyperlipidemia, unspecified Qualifiers: Hyperlipidemia type: unspecified Qualified Code(s): E78.5 - Hyperlipidemia, unspecified Plan: [place] LDL goal less 100. Labs done 11/12/2022 shows LDL 91. Continue atorvastatin 80 mg daily. Orders: Orders [place] echo transthoracic complete Today R07.9 - Chest pain, unspecified Coding Level of Care Code New Pt Level 4 (01127) Diagnoses Precordial pain R07.2 Chest pain type: precordial pain Primary hypertension I10 Hypertension type: primary hypertension Hyperlipidemia, unspecified hyperlipidemia type E78.5 Hyperlipidemia type: unspecified Time Spent (min) 30 Comment chart review, document, interview, assess
== END 2023-02-07 08:45 | disposition home or self-care (01) ==
PROVIDERS: PCP Internal Medicine; Referring Provider Internal Medicine; Visit Provider Nurse Practitioner Family
DX: R07.2 Precordial pain (principal); I10 Essential (primary) hypertension; E78.5 Hyperlipidemia, unspecified
CPT/HCPCS: 99204

== ENCOUNTER → 2023-02-07 07:45 | Outpatient (BNVA) | payer BC, SELFPAY | PROVIDERS: PCP Internal Medicine; Referring Provider Internal Medicine; Visit Provider Nurse Practitioner Family ==

== ENCOUNTER 2023-02-10 08:43 | Outpatient (AMB) | payer BC, SELFPAY ==
--- NOTE | 2023-02-10 08:50 | A.OFFVIS_ITS ---
Intake Vital Signs 02/10/23 08:51 Height 5 ft 4 in Weight 187 lb 6.287 oz BMI 32.2 BP 138/82 Blood Pressure Location Rt brachial Position Sitting Pulse 69 Pulse Source Doppler Pulse Oximetry (%) 97 Oxygen Delivery Method Room Air Intake Visit Reasons: Shortness of breath Allergies No Known Allergies Allergy (Verified 02/10/23 08:54) HPI Shortness of breath HPI Details 63-year-old lady, nonsmoker, with no und erlying personal of family history of lung disease referred for evaluation of chronic nonproductive cough and pending tightness in her throat intermittent through the day, not particularly related to food intake or body position, not associated with physical activity. Patient states that she has barium swallow pending. She does have underlying significant short currently on 20 mg of omeprazole and 20 mg of famotidine a day. Patient denies environmental allergies. She does have a dog. 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 Mother No problems noted. Social History (Reviewed 02/10/23 @ 08:55 by Cecelia Petty [facility]) Housing: House Alcohol intake: never Patient Tobacco Use Status: Former Tobacco user Tobacco use type: Cigarette e-Cigarette/Vaping Use: Never Used Second Hand Smoke Exposure: No Current occupational status: employed Cognitive needs: No Hearing needs: No Vision needs: Yes Review of Systems Const Denies daytime sleepiness, Denies excessive sweating, Denies fatigue, Denies fever(s), Denies lethargy, Denies malaise, Denies night sweats, Denies snoring and Denies weight loss Eyes Denies blurry vision and Denies itchy eyes ENT Denies nasal congestion, Denies post nasal drip, Denies sinus pain, Denies sinus pressure and Denies other ( Thrush) Card Denies chest pain, Denies pedal edema, Denies dyspnea, Denies orthopnea and Denies paroxysmal nocturnal dyspnea Resp Reports cough, Denies hemoptysis, Denies excessive phlegm production, Denies dyspnea, Denies snoring and Denies wheezing GI Denies abdominal pain and Denies heartburn Musc Denies myalgias, Denies arthralgias and Denies joint swelling Skin/Breast Denies rash Neuro Denies memory loss and Denies seizure-like activity Psych Denies abnormal sleep pattern, Denies anxiety and Denies memory loss Endo Denies excessive sweating, Denies fatigue and Denies heat intolerance Thomas/Lymph Denies easy bruising Aller/Immun Denies itchy eyes, Denies seasonal rhinorrhea and Denies wheezing Physical Exam Vital Signs: Last Vital Signs Pulse 69 02/10/23 08:51 BP 138/82 02/10/23 08:51 Pulse Ox 97 02/10/23 08:51 Oxygen Delivery Method Room Air 02/10/23 08:51 BMI result Body Mass Index 32.2 Const General: no acute distress and alert Nutritional Appearance: not obese Orientation/consciousness: Other orientation findings ( oriented) HEENT Head: Yes atraumatic Eyes General: appearance normal, both eyes and all related structures Sclerae: sclerae normal EOM: EOMs intact bilaterally Neck Neck: Yes supple Lymphatic: no lymphadenopathy noted Resp Effort & Inspection: normal respiratory effort and no use of accessory muscles Auscultation: clear to auscultation bilaterally Cardio Rate: regular rate Rhythm: regular rhythm Heart sounds: no gallops, no murmurs and no rubs Skin General skin exam: other ( warm) Extrem General: No clubbing, No cyanosis and No edema Assessment & Plan Assessment & Plan (1) GERD (gastroesophageal reflux disease): Code(s): K21.9 - Gastro-esophageal reflux disease without esophagitis Qualifiers: Esophagitis presence: esophagitis presence not specified Qualified Code(s): K21.9 - Gastro-esophageal reflux disease without esophagitis Plan: Underlying significant GERD suboptimally controlled current regimen. Will increase omeprazole to 40 mg twice a day. (2) Cough: Code(s): R05.9 - Cough, unspecified Plan: Unclear etiology, may have underlying asthmatic component. Will start on empiric Breo and obtain full PFT. Orders: Orders PFT pulmonary function test Today R05.9 - Cough, unspecified Medications: New omeprazole 40 mg PO BID 30 days 60 caps 6RF fluticasone furoate-vilanterol 200-25 mcg/dose (Breo Ellipta) 1 inh inhalation DAILY 30 days 60 ea 6RF Discontinued omeprazole Discontinued Reason: Doctor's Order 20 mg PO DAILY 90 caps 3RF Coding Level of Care Code New Pt Level 4 (44996) Diagnoses Gastroesophageal reflux disease, unspecified whether esophagitis present K21.9 Esophagitis presence: esophagitis presence not specified Cough R05.9
[2023-02-10 08:51] VITALS: BP 138/82; PULSE 69; O2SAT 97; BMI 32.2
== END 2023-02-10 09:36 | disposition home or self-care (01) ==
PROVIDERS: PCP Internal Medicine; Visit Provider Internal Medicine Pulmonary Disease
DX: K21.9 Gastro-esophageal reflux disease without esophagitis (principal); R05.9 Cough, unspecified
CPT/HCPCS: 99204

== ENCOUNTER → 2023-02-10 08:43 | Outpatient (BNVA) | payer BC, SELFPAY | PROVIDERS: PCP Internal Medicine; Visit Provider Internal Medicine Pulmonary Disease ==

== ENCOUNTER → 2023-02-18 07:52 | Outpatient (REF) | payer BC, SELFPAY ==
--- NOTE | ~2023-02-18 | NM_ITS ---
EXERCISE MYOCARDIAL PERFUSION STUDY INDICATION: Chest pain, assess for coronary disease and ischemia TECHNIQUE: The patient was brought in for an exercise perfusion study on 02/18/2023. Patient performed exercise as per Tello protocol and was injected 30 mCi of sestamibi once target heart rate was achieved. Images were obtained using the SPECT gamma camera interlaced with the gating device. Images were obtained in supine position. Resting perfusion study was performed on 02/19/2023. Patient was administered 30 mCi of sestamibi intravenously at rest. Images were then obtained in supine position. Images were processed with the software and compared side to side in short axis, horizontal long axis and vertical long axis views. Total DLP 96mGy-cm. FINDINGS: Raw images were reviewed. The stress perfusion study showed minimally reduced tracer uptake in the anterior apex. No significant change with CT attenuation correction. The gated study shows normal LV systolic function with calculated LVEF of 66%. LV cavity is normal in size. The gated study shows normal wall thickening and contraction of segments. Resting study shows minimally reduced tracer uptake in the apical anteroseptal area. Gating at rest reveals normal wall motion with ejection fraction at 68%. The findings are consistent with mild fixed defect in the apical septum/anterior septum, probably artifactual. No clear reversible defects. NE/NE cardiolite stress test IMPRESSION: 1. Myocardial perfusion imaging study shows probably normal myocardial perfusion. No clear evidence of any ischemia or infarction. 2. Gated LVEF is 66% during stress and 68% during rest. 3. Transient ischemic dilatation not present. EKG component of the test reported separately.
--- NOTE | 2023-02-18 07:54 | CA_ITS ---
Acquisition Time: 2023-02-18 07:57:14 Total Exercise Time: 00:07:30 Test Indications: CP Medications: AMLODIPINE/BENAZAPRIL ATENOLOL ATORVASTATIN FAMOTIDINE OMEPRAZOLE SERTRALINE Protocol: DANISH Max HR: 126 BPM 81% of Pred: 155 BPM Max BP: 170/076 mmHG Max Work Load: 7.5 METS Exercise stress test exercise 7 min 30 sec of Danish protocol stage 2 held, at 6 min incline increased to 14%, achieving 81% MPHR and 7.0 METs, with 5/10 chest tightness in mid chest, with mild SOB, with isolated PVC, with normotensve response to exercise, with downsloping ST. Chest tightness resolved with rest.Nuclear images pending. Test reviewed with Dr. Sanz. Referred By: Naa Avelar Overread By: ADITYA ASHBY
== END ==
LOC: HO.CARD 07:52
PROVIDERS: PCP Internal Medicine; Visit Provider Internal Medicine
DX: R07.9 Chest pain, unspecified (principal)
CPT/HCPCS: 78452; 93017; A9500

== ENCOUNTER → 2023-02-18 07:54 | Outpatient (BNV) | payer BC, SELFPAY | PROVIDERS: PCP Internal Medicine; Visit Provider Internal Medicine | DX: R07.9 Chest pain, unspecified (principal) | CPT/HCPCS: 78452; 93016; 93018 ==

== ENCOUNTER 2023-02-25 09:24 | Outpatient (REF) | payer BC, SELFPAY ==
--- NOTE | 2023-02-25 09:57 | PFT_ITS ---
Forced vital capacity 85%, FEV1 77%. FEV1/FVC ratio 69. [id number] 58% and MVV 64%. Post bronchodilator therapy, there is no change. Total lung capacity 81%. Residual volume 78%. Diffusion capacity 89% CONCLUSION: There is evidence of mild obstructive airway disorder. No response to bronchodilator therapy. Clinical correlation recommended. MD DENI Wilson/MODL / [id number]
== END 2023-02-25 09:25 | disposition home or self-care (01) ==
LOC: HO.RESP 09:24
PROVIDERS: PCP Internal Medicine; Visit Provider Internal Medicine Pulmonary Disease
DX: R05.9 Cough, unspecified (principal)
CPT/HCPCS: 94010; 94727; 94729

== ENCOUNTER → 2023-02-25 09:57 | Outpatient (BNV) | payer BC, SELFPAY | PROVIDERS: PCP Internal Medicine; Visit Provider Internal Medicine | DX: R06.09 Other forms of dyspnea (principal) | CPT/HCPCS: 94060; 94727; 94729 ==

== ENCOUNTER 2023-03-11 08:37 | Outpatient (AMB) | payer BC, SELFPAY ==
--- NOTE | 2023-03-11 08:40 | A.OFFVIS_ITS ---
Intake Vital Signs 03/11/23 08:43 Height 5 ft 4 in Weight 187 lb 6.287 oz BMI 32.2 BP 130/82 Blood Pressure Location Lt brachial Position Sitting Pulse 66 Intake Visit Reasons: follow-up after testing Intake Note: f/u after testing Shirt Hemmer Required: Yes Shirt Hemmer Language: [place] Islander Shirt Hemmer Name: kaye huerta [id number] Allergies No Known Allergies Allergy (Verified 03/11/23 08:45) Medication List - Last Reconciled 03/11/23 by Linda Bills NP-C amlodipine-benazepril 5-20 mg 1 cap PO DAILY aspirin 81 mg PO DAILY atenolol 50 mg PO BID atorvastatin 80 mg PO DAILY famotidine (Pepcid) 20 mg PO BEDTIME fluticasone furoate-vilanterol 200-25 mcg/dose (Breo Ellipta) 1 inh inhalation DAILY 30 days omeprazole 40 mg PO BID 30 days sertraline 50 mg PO DAILY HPI follow-up after testing HPI Details Elsa is a 63-year-old female with past medical history of hypertension, hyperlipidemia, mild obesity who was seen in the emergency room recently for lightheadedness and chest discomfort while at work. She ruled out for ACS. She was then seen in consultation and stress test and echocardiogram were ordered. Today she presents for follow-up stating she does get some discomfort in her mid chest but she is believing it is reflux. She takes her medications for reflux and they help. She did have discomfort in her chest when doing the stress test however tells me that she does not get exertional chest discomfort at other times. She is now believing this symptom is not her heart. Her echocardiogram was not done for unclear reason. She is willing to pursue the echocardiogram but not interested in having a CTA of the coronary arteries which was suggested. She denies shortness of breath, palpitations, presyncope, syncope, PND, orthopnea or edema. She reports good activity tolerance. Taking meds as directed. 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 Mother No problems noted. Social History Housing: House Alcohol intake: never Patient Tobacco Use Status: Former Tobacco user Tobacco use type: Cigarette e-Cigarette/Vaping Use: Never Used Second Hand Smoke Exposure: No Current occupational status: employed Cognitive needs: No Hearing needs: No Vision needs: Yes Review of Systems ENT Reports dizziness Card Denies chest pain, Denies chest pain at rest, Denies chest pain with activity, Denies rapid heart rate, Denies pedal edema, Denies edema, Denies leg edema, Denies lightheadedness, Denies palpitations, Denies dyspnea, Denies dyspnea on exertion and Denies orthopnea Resp Denies cough, Denies dyspnea and Denies dyspnea on exertion GI Denies hematochezia and Denies change in stool character Musc Denies abnormal gait, Reports limited range of motion, Reports muscle cramps, Denies muscle weakness, Denies numbness, Denies radiating pain into limb, Denies stiffness and Denies tingling Neuro Denies abnormal gait, Reports dizziness, Denies numbness and Denies tingling Endo Denies palpitations Physical Exam Vital Signs: Last Vital Signs Pulse 66 03/11/23 08:43 BP 130/82 03/11/23 08:43 BMI result Body Mass Index 32.2 Const General: cooperative, healthy appearing, comfortable and no acute distress Orientation/consciousness: patient oriented x3 Neck Neck: Yes normal visual inspection Resp Effort & Inspection: normal respiratory effort Auscultation: clear to auscultation bilaterally, no crackles, no rales, no rhonchi and no wheezes Cardio Jugular venous distension: no JVD Rate: regular rate Rhythm: regular rhythm Heart sounds: S1 normal heart sound present, S2 normal heart sound present, no gallops, no murmurs and no rubs Neuro General: patient oriented x3 Extrem General: Yes normal to inspection Psych Appearance: grossly normal Mental Status: mental status grossly normal Speech and movement: Normal speech and movement present Assessment & Plan Assessment & Plan (1) Chest pain: Code(s): R07.9 - Chest pain, unspecified Qualifiers: Chest pain type: precordial pain Qualified Code(s): R07.2 - Precordial pain Plan: Episode of chest discomfort occurring at work on 01/22/2023. proceeded by lightheadedness. EMS called and she was treated with aspirin and nitroglycerin spray with some improvement in symptom. Once in the emergency room she un derwent evaluation and ruled out for ACS. Troponin levels were normal. EKG showed sinus rhythm with no acute ST or T-wave abnormalities. Chest x-ray was normal, BNP 82, D-dimer elevated at 338 followed by CTA of chest showing no PE. Her blood pressure was 119/45. She was continued on her usual home atenolol, atorvastatin, amlodipine/benazepril. On last visit she was seen for cardiology consultation today. An echocardiogram and stress test were ordered. Echocardiogram not completed as of yet. Stress test done 02/17/2023 with exercise 7 minutes 30 seconds, 5/10 chest discomfort, no downsloping ST segments inferior lateral leads in recovery, and normal myocardial perfusion imaging. Today she reports that she does get periodic discomfort in her chest but now relates it to reflux. She says when she takes her reflux medication her discomfort goes away. She is denying exertional symptoms even though she had discomfort on the treadmill. Recommended that she complete echocardiogram which she is agreeable to do. Recommended that she undergo a CTA of the coronary arteries which she declines at this time. She wants to wait and see how things go. Spent time reviewing the signs and symptoms of angina with her and that chest discomfort can mean CT is impending or occurring. She did have a CTA of the chest on 01/22/2023 which showed no visualized coronary artery calcifications which is reassuring. Plan to review echocardiogram results and call her with findings. If abnormal she will likely agree to further testing. At present will arrange for cardiology follow-up in 6 months, sooner if needed. Instructed to seek emergency medical care if needed for symptoms. Continue on aspirin, high-dose atorvastatin, atenolol. (2) HTN (hypertension): Code(s): I10 - Essential (primary) hypertension Qualifiers: Hypertension type: primary hypertension Qualified Code(s): I10 - Essential (primary) hypertension Plan: [place] blood pressure goal less than 130/85. Blood pressure good at present. She is on atenolol and amlodipine/benazepril combination. No med changes made (3) Hyperlipidemia: Code(s): E78.5 - Hyperlipidemia, unspecified Qualifiers: Hyperlipidemia type: unspecified Qualified Code(s): E78.5 - Hyperlipidemia, unspecified Plan: Idea LDL goal less 100. Labs done 11/12/2022 shows LDL 91. Continue atorvastatin 80 mg daily. Coding Level of Care Code Est Pt Level 3 (93511) Diagnoses Precordial pain R07.2 Chest pain type: precordial pain Primary hypertension I10 Hypertension type: primary hypertension Hyperlipidemia, unspecified hyperlipidemia type E78.5 Hyperlipidemia type: unspecified Time Spent (min) 24
[2023-03-11 08:43] VITALS: BP 130/82; PULSE 66; BMI 32.2
== END 2023-03-11 09:25 | disposition home or self-care (01) ==
PROVIDERS: PCP Internal Medicine; Visit Provider Nurse Practitioner Family
DX: R07.2 Precordial pain (principal); I10 Essential (primary) hypertension; E78.5 Hyperlipidemia, unspecified
CPT/HCPCS: 99213

== ENCOUNTER → 2023-03-11 08:37 | Outpatient (BNVA) | payer BC, SELFPAY | PROVIDERS: PCP Internal Medicine; Visit Provider Nurse Practitioner Family ==

== ENCOUNTER → 2023-03-12 07:57 | Outpatient (REF) | payer BC, SELFPAY ==
--- NOTE | 2023-03-12 08:01 | CA_ITS ---
Transthoracic Echocardiogram Patient (Last, First, Middle): Elsa Bay, Gender: Female Date of : 1960 Age: 63 Procedure Date: 03/12/2023 Procedure Type: Transthoracic Echocardiogram Location: OP Height: 157.48 cm Weight: 83.92 kg BSA: 1.85 m2 Heart Rate: bpm BP: 130 / 70 mmHg Aircraft Time Clerk: TO Referring MD: Linda Bills HAND GRINDER-C Symptoms: R07.9 - Chest pain, unspecified Study Quality: Fair ECG Rhythm: Sinus Conclusions: - The left ventricular systolic function is normal. The calculated ejection fraction is 65% by biplane method. - No obvious valvular pathology seen on this study. Findings Left Ventricle Normal left ventricular cavity size. The left ventricular systolic function is normal. The calculated ejection fraction is 65% by biplane method. There is no evidence of regional wall motion abnormalities. Diastolic function is normal for age. There is mild septal asymmetric hypertrophy. LV peak GLS 18.1%. Right Ventricle Normal right ventricular cavity size and systolic function. Atria Both atria are normal in size. Aortic Valve There is a normal trileaflet aortic valve. There is mild calcification of the aortic valve. There is no aortic valve stenosis. There is no aortic valve regurgitation. Mitral Valve The mitral valve appears normal. There is no mitral valve regurgitation. There is no mitral valve stenosis. Pulmonic Valve The pulmonic valve is likely normal. Tricuspid Valve There is no tricuspid valve regurgitation. Tricuspid regurgitation envelope is inadequate for calculation of right ventricular systolic pressure. Great Vessels The asc aorta is normal in size. Venous The inferior vena cava is mildly dilated and collapses greater than 50% with inspiration. Pericardium/Pleural There is no evidence of pericardial effusion. Prior Study Comparison No prior study available for comparison. Recommendations, Care & Conclusions No obvious valvular pathology seen on this study. Measurements 2D Linear Measurements IVSd: 1.20 0.6-0.9/0.6-1.0 cm LVIDd: 4.70 3.9-5.3/4.2-5.9 cm LVIDd Index: 2.54 2.4-3.2/2.2-3.1 cm/m2 LVIDs: 2.90 2.0-3.6 cm LVPWd: 0.90 0.7-1.1 cm LA Diam: 3.50 2.7-3.8/3.0-4.0 cm LAIDs Index: 1.89 1.5-2.3 cm/m2 LV Mass: 219.03 67-162/88-224 g LV Mass Index: 118.40 43-95/49-115 g/m2 LVOT Diam: 2.30 3.0+(-)1.3 cm 2D Systolic Function EF 4C: 65.10 >55% EF 2C: 63.80 >55% EF BiP: 64.70 >55% Mitral Valve MV VTI: 0.30 MV Pk Finesse: 0.80 MV Mn Finesse: 0.48 MV Pk Grad: 3.00 MV Mn Grad: 1.00 MV Pk E: 0.51 MV PK A: 0.35 MV Decel Time: 238.00 E/A: 1.50 E'Lateral: 7.51 E'Medial: 6.31 E/E' Med: 8.10 E/E' Lat: 6.80 PHT: 70.00 MVA PHT: 3.14 MVA Continuity: 2.67 Decel [place]: 2.16 Aortic Valve AoV Pk Finesse: 0.92 AoV Mn Finesse: 0.68 AoV VTI: 0.23 AoV Pk Grad: 3.00 Aov Mn Grad: 2.00 ZOHAIB Cont.VTI: 3.49 LVOT LVOT Pk Finesse: 0.84 LVOT Mn Finesse: 0.53 LVOT VTI: 0.20 LVOT Pk Grad: 3.00 LVOT Mn Grad: 1.00 LVOT Diam: 2.30 LVOT Area: 4.15 Diastolic Function MV Pk E: 0.51 MV Pk A: 0.35 E/A: 1.50 E'Medial: 6.31 E/E' Med: 8.10 E' Laterial: 7.51 E/E' Lat: 6.80 Right Ventricle TAPSE (mm): 23.00 TVS' Finesse: 14.10 Tricuspid Valve RA Press: 15.00 Great Vessels Aorta Sinus of Valsalva: 3.40 2.0-3.5 cm Ao Asc: 3.20 2.1-3.4 cm Updated in Other Vendor System with Status of Final Surya Gant MD electronically signed on 03/13/2023 8:51:38 AM with status of Final
== END ==
LOC: HO.CARD 07:57
PROVIDERS: PCP Internal Medicine; Visit Provider Nurse Practitioner Family
DX: R07.9 Chest pain, unspecified (principal)
CPT/HCPCS: 93306; 93356

== ENCOUNTER → 2023-03-12 08:01 | Outpatient (BNV) | payer BC, SELFPAY | PROVIDERS: PCP Internal Medicine; Visit Provider Internal Medicine | DX: I35.8 Other nonrheumatic aortic valve disorders (principal); R07.9 Chest pain, unspecified | CPT/HCPCS: 93306 ==

== ENCOUNTER 2023-03-25 10:23 | Outpatient (AMB) | payer BC, SELFPAY ==
--- NOTE | 2023-03-25 10:24 | MHC.OFFVIS ---
Intake Vital Signs 03/25/23 10:27 Height 5 ft 4 in Weight 195 lb 1.745 oz BMI 33.5 BP 142/70 H Blood Pressure Location Lt brachial Position Sitting Pulse 67 Pulse Source Doppler Pulse Oximetry (%) 97 Oxygen Delivery Method Room Air Intake Visit Reasons: Shortness of breath Allergies No Known Allergies Allergy (Verified 03/25/23 10:30) HPI Shortness of breath HPI Details 63-year-old lady, nonsmoker, with no underlying personal of family history of lung disease referred for evaluation of chronic nonproductive cough and pending tightness in her throat intermittent through the day, not particularly related to food intake or body position, not associated with physical activity. Patient states that she has barium swallow pending. She does have underlying significant short currently on 20 mg of omeprazole and 20 mg of famotidine a day. Patient denies environmental allergies. She does have a dog. 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 after the last office visit patient has completed her pulmonary function test which was essentially normal. she also sent switched to twice a day omeprazole with significant improvement in her symptoms. She denies any recent exacerbations. 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 Mother No problems noted. Social History Housing: House Alcohol intake: never Patient Tobacco Use Status: Former Tobacco user Tobacco use type: Cigarette e-Cigarette/Vaping Use: Never Used Second Hand Smoke Exposure: No Current occupational status: employed Cognitive needs: No Hearing needs: No Vision needs: Yes Review of Systems Const Denies daytime sleepiness, Denies excessive sweating, Denies fatigue, Denies fever(s), Denies lethargy, Denies malaise, Denies night sweats, Denies snoring and Denies weight loss Eyes Denies blurry vision and Denies itchy eyes ENT Denies nasal congestion, Denies post nasal drip, Denies sinus pain, Denies sinus pressure and Denies other ( Thrush) Card Denies chest pain, Denies pedal edema, Denies dyspnea, Denies orthopnea and Denies paroxysmal nocturnal dyspnea Resp Denies cough, Denies hemoptysis, Denies excessive phlegm production, Denies dyspnea, Denies snoring and Denies wheezing GI Denies abdominal pain and Denies heartburn Musc Denies myalgias, Denies arthralgias and Denies joint swelling Skin/Breast Denies rash Neuro Denies memory loss and Denies seizure-like activity Psych Denies abnormal sleep pattern, Denies anxiety and Denies memory loss Endo Denies excessive sweating, Denies fatigue and Denies heat intolerance Thomas/Lymph Denies easy bruising Aller/Immun Denies itchy eyes, Denies seasonal rhinorrhea and Denies wheezing Physical Exam Vital Signs: Last Vital Signs Pulse 67 03/25/23 10:27 BP 142/70 H 03/25/23 10:27 Pulse Ox 97 03/25/23 10:27 Oxygen Delivery Method Room Air 03/25/23 10:27 BMI result Body Mass Index 33.5 Const General: no acute distress and alert Nutritional Appearance: not obese Orientation/consciousness: Other orientation findings ( oriented) HEENT Head: Yes atraumatic Eyes General: appearance normal, both eyes and all related structures Sclerae: sclerae normal EOM: EOMs intact bilaterally Neck Neck: Yes supple Lymphatic: no lymphadenopathy noted Resp Effort & Inspection: normal respiratory effort and no use of accessory muscles Auscultation: clear to auscultation bilaterally Cardio Rate: regular rate Rhythm: regular rhythm Heart sounds: no gallops, no murmurs and no rubs Skin General skin exam: other ( warm) Extrem General: No clubbing, No cyanosis and No edema Assessment & Plan Assessment & Plan (1) GERD (gastroesophageal reflux disease): Code(s): K21.9 - Gastro-esophageal reflux disease without esophagitis Qualifiers: Esophagitis presence: esophagitis presence not specified Qualified Code(s): K21.9 - Gastro-esophageal reflux disease without esophagitis (2) Cough: Code(s): R05.9 - Cough, unspecified Plan Symptoms improved significantly on current regimen of omeprazole 40 mg twice a day and Breo. Continue current regimen. Coding Level of Care Code Est Pt Level 4 (79077) Diagnoses Gastroesophageal reflux disease, unspecified whether esophagitis present K21.9 Esophagitis presence: esophagitis presence not specified Cough R05.9
[2023-03-25 10:27] VITALS: BP 142/70; PULSE 67; O2SAT 97; BMI 33.5
== END 2023-03-25 10:50 | disposition home or self-care (01) ==
PROVIDERS: PCP Internal Medicine; Visit Provider Internal Medicine Pulmonary Disease
DX: K21.9 Gastro-esophageal reflux disease without esophagitis (principal); R05.9 Cough, unspecified
CPT/HCPCS: 99214

== ENCOUNTER → 2023-03-25 10:23 | Outpatient (BNVA) | payer BC, SELFPAY | PROVIDERS: PCP Internal Medicine; Visit Provider Internal Medicine Pulmonary Disease ==

== ENCOUNTER 2023-04-04 10:19 | Outpatient (REF) | payer BC, SELFPAY ==
--- NOTE | ~2023-04-04 | FL_ITS ---
EXAMINATION: XR BARIUM SWALLOW CLINICAL INFORMATION: Dysphasia COMPARISON: None available. TECHNIQUE: Fluoroscopy provided to speech pathology for evaluation of swallowing mechanism. Single permanent documented image obtained. FINDINGS: Fluoroscopy time: 49 seconds Dose total: 29.0 mGy DAP: [id number] [id number] FL/FL barium swallow modified IMPRESSION: Fluoroscopy during modified barium swallow. Please refer to speech pathology report for full details of the examination.
--- NOTE | 2023-04-10 12:57 | MHC.SL.IMP ---
Date of Plan of Treatment: 04/04/23 Onset of Symptoms/Illness: 04/04/23 Date Treatment Started: 04/04/23 Admitting Diagnosis: Dysphagia, unspecified (R13.10) Primary Speech & Language Diagnosis: R13.19 Other Dysphagia Reason for Today's Visit: 30048 Modified Barium Swallow Study Pre-evaluation Dietary Consistencies: Regular Pre-evaluation Liquid Consistency: Thin Pre-evaluation Medication Administration: Whole with Liquid Oral Motor Exam Facial Symmetry: Normal for Patient Symmetrical Mouth Occlusion: Normal Tongue Size: Normal Tongue Frenum Length: Normal Oral Expression Ability: No Impairment Is patient able to manage secretions?: Yes Is patient able to produce volitional cough?: Yes Food and Liquid Trials: Oral Impairment: Lip Closure: 1=Interlabial escape; no progression to anterior tip Oral Impairment: Tongue Control During Bolus Hold: 0=Cohesive bolus between tongue to palatal seal Oral Impairment: Bolus Preparation/Mastication: 0=Timely and efficient chewing and mashing Oral Impairment: Bolus Transport/Lingual Motion: 0=Brisk tongue motion Oral Impairment: Oral Residue: 1=Trace residue lining oral structures Oral Impairment:Initiation of Pharyngeal Swallow: 2=Bolus head at posterior laryngeal surface of epiglottis Pharyngeal Impairment: Soft Palate Elevation: 1=Trace column of contrast or air between SP and PW Pharyngeal Impairment: Laryngeal Elevation: 0=Complete superior movement of thyroid cartilage (see description) Pharyngeal Impairment: Anterior Hyoid Excursion: 0=Complete anterior movement Pharyngeal Impairment: Epiglottic Movement: 0=Complete inversion Pharyngeal Impairment: Laryngeal Vestibular Closure:: 1=Incomplete: narrow column air/contrast in laryngeal vestibule Pharyngeal Impairment: Pharyngeal Stripping Wave: 0=Present: complete Pharyngeal Impairment: Pharyngeal Contraction: 0=Complete Pharyngeal Impairment: Pharyngoesophageal Segment Openin=Partial distention/partial duration: partial obstruction of flow Pharyngeal Impairment: Tongue Base (TB) Retraction: 1=Trace column of contrast/air between TB and posterior PW Pharyngeal Impairment: Pharyngeal Residue: 1=Trace residue within or on pharyngeal structures Pharyngeal Impairment: Esophageal Clearance Upright Position: 2=Esophageal retention with retrograde flow below PES Impressions and Recommendations Clinical Observations: Lip closure for intraoral bolus containment resulted in interlabial escape, without progression to the anterior lip. Tongue control during bolus hold maintained a cohesive bolus held between tongue to palate seal. Bolus preparation and mastication resulted in timely and efficient chewing and mashing. Bolus transport/lingual motion was with brisk tongue motion. Oral residue was a trace, lining oral structures. Initiation of the pharyngeal swallow occurred as the bolus head was at the posterior laryngeal surface of the epiglottis. Soft palate elevation resulted in no bolus between the soft palate and the pharyngeal wall. Laryngeal elevation demonstrated complete superior movement of the thyroid cartilage with complete approximation of the arytenoids to the epiglottic petiole. Anterior hyoid excursion demonstrated complete anterior movement. Epiglottic movement resulted in complete inversion. Laryngeal vestibular closure was incomplete, with a narrow column of air/contrast noted within the laryngeal vestibule at the height of the swallow. Pharyngeal stripping wave was present and complete. Pharyngeal contraction was complete. Pharyngoesophageal segment opening could not be assessed due to logistical reasons not related to physiologic impairment. Tongue base retraction could not be assessed due to logistical reasons not related to physiologic impairment. Pharyngeal residue could not be assessed due to logistical reasons not related to physiologic impairment. Esophageal clearance in the upright position resulted in esophageal retention with incidence of retrograde bolus flow below the pharyngoesophageal segment. Summary: Study showed a healthy oral and pharyngeal swallow. Anterior cervical osteophytes most prominent at C5C6. A/P view of esophagus revealed retro-cardiac retention of previous bolus, and new retention after the swallow. This is the most likely cause of her globus sensation which she localizes to the jugular notch of the sternum. Further medical management is deferred to her referring provider. Liquid Intake Recommendation: Thin Liquid Intake Strategies: Small Sips Unrestricted Dietary Recommendations: Regular Medication Administration: Whole with Liquid Please contact the pharmacy regarding appropriate crushable or liquid drug formulations that are available whenever modified delivery is recommended. Compensatory Strategies Recommended: Sitting Upright (90 deg) Double Swallow Small Bites and Sips Alternate Liquids/Solids Rate of Ingestion Change Supervision during eating and or drinking: None Needed Recommended Treatments: Compens. Strategy Educat. Recommendation for Speech Therapy: NA:Typical Evaluation Text Comment: Return to referring provider for further assessment. May benefit from EGD with dilation, as deemed medically appropriate. Pt educated on esophageal dysphagia strategies including remaining upright after meals, alternating bites and sips, chew food well, take time with all meals, smaller more frequent portions. Timeline to reassess: PRN Clean Up Worker Clinician/Clinical Fellow: No Supervisory Statement: N/A Speech Language Pathologist: Yony Rouse M.A., [facility]
== END 2023-04-04 10:20 | disposition home or self-care (01) ==
LOC: HO.XRAY 10:19
PROVIDERS: PCP Internal Medicine; Visit Provider Nurse Practitioner Family
DX: R13.10 Dysphagia, unspecified (principal)
CPT/HCPCS: 74230; 92611

== ENCOUNTER 2023-04-15 08:30 | Outpatient (AMB) | payer BC, SELFPAY ==
[2023-04-15 08:31] VITALS: BP 146/66; PULSE 65; BMI 33.1
--- NOTE | 2023-04-15 08:31 | MHC.OFFVIS ---
Intake Vital Signs 04/15/23 08:31 Height 5 ft 4 in Weight 193 lb 1.999 oz BMI 33.1 BP 146/66 H Blood Pressure Location Lt brachial Position Sitting Pulse 65 Pulse Source Pulse Oximeter Intake Visit Reasons: Follow up BA swallow Intake Note: Pt presents to the office today for a follow up BA swallow. Pt states she is feeling a little better. Pt denies any N/V/D at this time. Pt states she is feeling better than before. Allergies No Known Allergies Allergy (Verified 04/15/23 08:34) HPI Follow up BA swallow HPI Details LAST VISIT: Dyspnea Referral to pulmonology. 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 Patient's states that she comes home and smells like oil. Patient reports increase in shortness of breath with exertion and at rest. Her dyspnea feels like spasm triggered very easy. Bronchospasm provoked either by GERD or environmental she is on atenolol Dysphagia Patient reports that her dysphagia has got better. Patient denies choking like episodes although had symptoms of dyspnea. Will send patient for barium swallow to rule out acid reflux GERD (gastroesophageal reflux disease) Continue taking omeprazole 20 mg half an hour before breakfast. Patient also can start taking famotidine at bedtime. Patient was encouraged to avoid dietary triggers and late night snacking. Staying upright for minimum 3 hours after meals discussed with patient. I will see patient in 4 weeks. Please bulk upper endoscopy for patient. Patient is going to see vertical mill operator and she will need to be cleared before going for procedure. Please book an appointment with looper operator. Patient is agreeable to plan of care and verbalizes understanding of instructions. She was given the opportunity to ask questions and all questions answered. Plan Orders Orders [place] barium swallow modified Today R13.10 - Dysphagia, unspecified Referrals Pulmonary Medicine Referral R06.00 - Dyspnea, unspecified Medications New famotidine (Pepcid) 20 mg PO BEDTIME 30 tabs 3RF K21.9 - Gastro-esophageal reflux disease without esophagitis TODAY'S VISIT Patient is here today for follow-up and to go over prep before going for colonoscopy. Patient had modified barium swallow no acute findings. The patient was seen by pulmonology who believes that her symptoms could be related to acid reflux. Patient is taking omeprazole twice a day and reports that her symptoms are better. Patient does admit to eating late at night a large amount of food sometimes when she gets home from work and reports to have acid reflux with dyspepsia. Sometimes when she forgets her 2nd dose in the afternoon she will have acid reflux and even when she will take her 2nd dose of omeprazole then her symptoms will get better. Sometimes patient has to take baking soda in order for her to feel better. Patient has appointment made already for her endoscopy. Denies any chest pain or shortness of breath. Rehab Director Occupational Therapist started patient on corticosteroid inhaler daily. Patient reports that she has not been taking it as she believes that she does not needed it every day. Patient was instructed to take it daily and rinse her mouth after using it. Patient reports that she is moving her bowels well without any issues. Denies melena, hematochezia, unintentional weight loss or ribbon like stools. Patient denies any issues with anesthesia in the past. No history of sleep apnea. Patient is on low-dose aspirin. No history of infectious diseases in the past or present. 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 Mother No problems noted. Social History Housing: House Alcohol intake: never Patient Tobacco Use Status: Former Tobacco user Tobacco use type: Cigarette e-Cigarette/Vaping Use: Never Used Second Hand Smoke Exposure: No Current occupational status: employed Cognitive needs: No Hearing needs: No Vision needs: Yes Review of Systems Const Denies weight gain and Denies weight loss ENT Reports no additional complaints, Reports dysphagia (Occasional) and Denies odynophagia Card Reports no additional complaints Resp Reports no additional complaints GI Denies abdominal pain, Denies belching, Denies melena, Denies bloating, Denies change in bowel habits, Reports dysphagia (Occasional), Denies excessive flatus, Reports dyspepsia, Reports heartburn, Denies diarrhea, Denies loose stools, Denies nausea, Denies odynophagia and Denies vomiting Reports no additional complaints Musc Reports no additional complaints Neuro Reports no additional complaints Psych Reports no additional complaints Endo Reports no additional complaints Physical Exam Vital Signs: Last Vital Signs Pulse 65 04/15/23 08:31 BP 146/66 H 04/15/23 08:31 BMI result Body Mass Index 33.1 Const General: healthy appearing, no acute distress and well developed Nutritional Appearance: well nourished Orientation/consciousness: patient oriented x3 HEENT Head: Yes normal to inspection, Yes normocephalic and Yes atraumatic Face and sinus: Yes normal facial exam Mouth: Normal oral and palatal mucosa present Throat: Yes posterior oropharynx normal, Yes tonsils normal and Yes uvula midline Eyes General: appearance normal, both eyes and all related structures Neck Neck: Yes normal visual inspection, Yes full ROM and Yes trachea midline Thyroid: Thyroid normal Resp Effort & Inspection: normal respiratory effort, able to speak in complete sentences, no tracheal deviation and symmetric chest movement Auscultation: clear to auscultation bilaterally Cardio Rate: regular rate Heart sounds: S1 normal heart sound present and S2 normal heart sound present GI Inspection: Yes normal to inspection and No distended Palpation (GI): Soft to palpation, not firm, nontender and No hepatosplenomegaly present Auscultation: normal bowel sounds General: Yes no CVA tenderness Back/Spine/Pelvis Back: no CVA tenderness Skin General skin exam: elasticity normal, turgor normal and dry skin Neuro General: patient oriented x3 Psych Appearance: grossly normal Mental Status: mental status grossly normal Speech and movement: Normal speech and movement present Affect: normal affect Attitude: cooperative Thought process: Normal thought process present Thought content: Normal thought content present Insight: Good insight present (Psych) Judgement: Good judgement present (Psych) Results Reviewed Results Reviewed: MODIFIED BARIUM SWALLOW 04/03/2023 Summary: Study showed a healthy oral and pharyngeal swallow. Anterior cervical osteophytes most prominent at C5C6. A/P view of esophagus revealed retro-cardiac retention of previous bolus, and new retention after the swallow. This is the most likely cause of her globus sensation which she localizes to the jugular notch of the sternum. Further medical management is deferred to her referring provider. Liquid Intake Recommendation: Thin Liquid Intake Strategies: Small SipsUnrestricted Dietary Recommendations: Regular Medication Administration: Whole with Liquid Please contact the pharmacy regarding appropriate crushable or liquid drug formulations that are available whenever modified delivery is recommended. Compensatory Strategies Recommended: Sitting Upright (90 deg)Double Swallow Small Bites and Sips Alternate Liquids/Solids Rate of Ingestion Change Supervision during eating and or drinking: None Needed Recommended Treatments: Compens. Strategy Educat. Recommendation for Speech Therapy: NA:Typical EvaluationText Comment: Return to referring provider for further assessment. May benefit from EGD with dilation, as deemed medically appropriate. Pt educated on esophageal dysphagia strategies including remaining upright after meals, alternating bites and sips, chew food well, take time with all meals, smaller more frequent portions. Assessment & Plan Assessment & Plan (1) Dysphagia: Code(s): R13.10 - Dysphagia, unspecified Qualifiers: Dysphagia type: esophageal phase Qualified Code(s): R13.19 - Other dysphagia (2) GERD (gastroesophageal reflux disease): Code(s): K21.9 - Gastro-esophageal reflux disease without esophagitis Qualifiers: Esophagitis presence: esophagitis presence not specified Qualified Code(s): K21.9 - Gastro-esophageal reflux disease without esophagitis (3) Dyspnea: Code(s): R06.00 - Dyspnea, unspecified Qualifiers: Dyspnea type: unspecified Qualified Code(s): R06.00 - Dyspnea, unspecified Plan Patient will continue taking omeprazole twice a day. Discussed with patient avoiding dietary triggers and late night snacking. Staying upright for minimum 3 hours after meals discussed with patient. Patient will go for upper endoscopy that is schedule in June and follow-up in the office after. Barium swallow discussed with patient. What to expect before during and after the procedure discussed with patient. She is agreeable to plan of care and verbalizes understanding of instructions. She was given the opportunity to ask questions and all questions answered. Thank you for allowing me to participate in her care Medications: Changed From omeprazole 40 mg PO BID 60 caps 6RF 30 days To omeprazole 40 mg PO BID 180 caps 2RF 90 days Discontinued famotidine (Pepcid) Discontinued Reason: Doctor's Order 20 mg PO BEDTIME 30 tabs 3RF K21.9 - Gastro-esophageal reflux disease without esophagitis Coding Level of Care Code Est Pt Level 4 (21325) Diagnoses Esophageal dysphagia R13.19 Dysphagia type: esophageal phase Gastroesophageal reflux disease, unspecified whether esophagitis present K21.9 Esophagitis presence: esophagitis presence not specified Dyspnea, unspecified type R06.00 Dyspnea type: unspecified Time Spent (min) 35 Comment 20 minutes spent with patient and additional 15 minutes spent reviewing her records
== END 2023-04-15 09:25 | disposition home or self-care (01) ==
PROVIDERS: PCP Internal Medicine; Visit Provider Nurse Practitioner Family
DX: R13.19 Other dysphagia (principal); K21.9 Gastro-esophageal reflux disease without esophagitis; R06.00 Dyspnea, unspecified
CPT/HCPCS: 99214

== ENCOUNTER → 2023-04-15 08:30 | Outpatient (BNVA) | payer BC, SELFPAY | PROVIDERS: PCP Internal Medicine; Visit Provider Nurse Practitioner Family ==

== ENCOUNTER 2023-04-29 09:03 | Outpatient (REF) | payer BC, SELFPAY | END 2023-04-29 09:04 | disposition home or self-care (01) | LOC: HO.MAMMO 09:03 | PROVIDERS: PCP Internal Medicine; Visit Provider Internal Medicine | DX: Z12.31 Encounter for screening mammogram for malignant neoplasm of breast (principal) | CPT/HCPCS: 77063; 77067 ==

== ENCOUNTER → 2023-04-29 09:15 | Outpatient (BNV) | payer BC, SELFPAY | PROVIDERS: PCP Internal Medicine; Visit Provider Radiology Diagnostic Radiology | DX: Z12.31 Encounter for screening mammogram for malignant neoplasm of breast (principal) | CPT/HCPCS: 77063; 77067 ==

== ENCOUNTER 2023-06-26 07:06 | Day surgery (SDC) | payer BC, SELFPAY ==
[2023-06-24 14:55] VITALS: BMI 33.1
--- NOTE | 2023-06-25 12:18 | HO.ANESPROP2 ---
Documented by User: Lamar Hwang NP 06/25/23 12:22 HPI - Anesthesia Eval Consult details Narrative: 63yo F for Upper Endoscopy Cardiac cleared (Seen by [facility] 01/2023 after episode of CP/lightheadedness. Echo and Stress OK.) [facility] Active Problems Active Problems: All Active Problems (Updated 06/24/23 @ 14:46 by Anne-Marie Nicholas RN) Uterine prolapse (Acute) Sciatica (Acute) Neck pain (Acute) URI (upper respiratory infection) (Acute) Elevated LFTs (Acute) Dysphagia (Acute) Uterine myoma (Acute) Ovarian mass (Acute) Bacterial vaginosis (Acute) Postmenopausal bleeding (Acute) Cervical lesion (Acute) Endocervical polyp (Acute) Cystocele with small rectocele and uterine descent (Acute) Cough (Acute) Annual physical exam (Acute) Urinary tract infection (Acute) Lumbar radiculopathy (Acute) GERD (gastroesophageal reflux disease) (Acute) 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 Mother No problems noted. Family history of problems with anesthesia: No Surgical History Surgical History Hx of hysterectomy History of dilatation and curettage Hx laparoscopic cholecystectomy H/O colonoscopy History of Problems with Anesthesia: No Social History Social History Housing: House Alcohol intake: never Patient Tobacco Use Status: Never used Tobacco Tobacco use type: Cigarette e-Cigarette/Vaping Use: Never Used Second Hand Smoke Exposure: No Use of substances other than those prescribed or required for medical reasons: No Are you DNR?: No Advance Directives: No Advance Directives Information Provided: Yes Current occupational status: employed Cognitive needs: No Hearing needs: No Vision needs: Yes Meds Allergies Allergy/AdvReac Type Severity Reaction Status Date / Time No Known Allergies Allergy Verified 06/26/23 07:20 Home Medications Medication Instructions Recorded Confirmed Last Taken Type aspirin 81 mg tablet,delayed 81 mg PO DAILY 02/10/23 03/11/23 Unknown History release oxycodone 5 mg tablet 5 mg PO Q6H PRN pain 06/26/23 06/26/23 Unknown History Exam Height,Weight and Vital Signs: Height 5 ft 4 in Weight 87.543 kg Pertinent Lab Results Pertinent Lab Results: Laboratory Tests 01/22/23 01/22/23 17:35 17:36 WBC 6.8 Hgb 12.5 Hct 37.2 Plt Count 222 Sodium 141 Potassium 3.8 Chloride 108 Carbon Dioxide 28 BUN 13 Creatinine 0.69 Narrative Narrative: ECHO 03/2023 Conclusions: - The left ventricular systolic function is normal. The calculated ejection fraction is 65% by biplane method. - No obvious valvular pathology seen on this study. NM cardiolite stress test 01/2023 IMPRESSION: 1. Myocardial perfusion imaging study shows probably normal myocardial perfusion. No clear evidence of any ischemia or infarction. 2. Gated LVEF is 66% during stress and 68% during rest. 3. Transient ischemic dilatation not present. EKG component of the test reported separately. 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 Mother No problems noted. Surgical History Surgical History Hx of hysterectomy History of dilatation and curettage Hx laparoscopic cholecystectomy H/O colonoscopy Social History Social History Housing: House Alcohol intake: never Patient Tobacco Use Status: Never used Tobacco Tobacco use type: Cigarette e-Cigarette/Vaping Use: Never Used Second Hand Smoke Exposure: No Use of substances other than those prescribed or required for medical reasons: No Are you DNR?: No Advance Directives: No Advance Directives Information Provided: Yes Current occupational status: employed Cognitive needs: No Hearing needs: No Vision needs: Yes Meds Allergies Allergy/AdvReac Type Severity Reaction Status Date / Time No Known Allergies Allergy Verified 06/26/23 07:20 Home Medications Medication Instructions Recorded Confirmed Last Taken Type aspirin 81 mg tablet,delayed 81 mg PO DAILY 02/10/23 03/11/23 Unknown History release oxycodone 5 mg tablet 5 mg PO Q6H PRN pain 06/26/23 06/26/23 Unknown History Exam Airway Mallampati Class: II TM Dist: >3cm Neck ROM: Full Denture: Upper and Lower Heart: rrr Lungs: cta Assessment and Plan Assessment Anesthesia Assessment: Anesthesia Plan Discussed Final Anesthetic Review NPO: Yes ASA Class: III Final Preanesthetic Review: No Changes in Pt Med Stat, Meds/Allgs Chart Reviewed, Consent Obtained/Reviewed and Anes Risks/Benef Reviewed Patient Risk: Intermediate Procedure Risk: Low Anesthetic Plan Anesthetic Plan: MAC: Disposition: Standard PACU
[2023-06-26 07:25] VITALS: BMI 33.1
[2023-06-26 07:31] VITALS: BP 150/58; PULSE 81; RESP 16; TEMP 36.8; O2SAT 97
--- NOTE | 2023-06-26 07:34 | MHC.SHP ---
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 SARS-CoV-2 positive Kidney lesion Gallbladder polyp Hepatitis Abdominal pain Incontinence of urine Anxiety and depression GERD (gastroesophageal reflux disease) Hyperlipidemia HTN (hypertension)) History of Previous Operations: Relevant previous surgery/procedure and date(s) (Hx of hysterectomy History of dilatation and curettage Hx laparoscopic cholecystectomy H/O colonoscopy) Allergies: Allergies Allergy/AdvReac Type Severity Reaction Status Date / Time No Known Allergies Allergy Verified 06/26/23 07:20 Review of Systems Sugical H&P ROS: Negative: Constitution, Cardiovascular, Respiratory, Neurological, Psychiatric, Hem-Onc, Allergic/Immunologic, Gastrointestinal, Genitourinary, Musculoskeletal, Integumentary, Endocrine and Eyes/Ears/Nose/Throat Exam Surgical H&P Exam: Normal: HEENT, Normal: Heart, Normal: Lungs, Normal: Extremities, Normal: Abdomen, Normal: Skin and Normal: Neurological Plan Diagnosis/Plan: Unchanged I have reviewed the history and physical and performed a pertinent physical examination on my patient. No changes have occurred unless specified. Time Spent With Patient Time: Total time managing care of this patient today ____ minutes. Documented by User: José Miguel Dos Santos MD 06/26/23 08:12 Pre-Procedural Eval Section A Date of Service: 06/26/23 Section B Chief Complaint: gerd,dysphagia,
[2023-06-26] MEDS: Lactated Ringers 1,000 ML 100 ML IVCONT (07:48)
--- NOTE | 2023-06-26 07:51 | PC.NURSE ---
md and anesthesia md aware of recent hysterectomy last week on and has been alternating with ibuprofen, tylenol, and oxycodone daily. ok to proceed.
--- NOTE | 2023-06-26 08:19 | W.PM.OPN ---
Operative Note Operative Note Date of Service: 06/26/23 Narrative: Procedure Description: EGD Indication: GERd, dysphagia Anesthesia: MAC FLEXIBLE TRANSORAL UPPER GASTROINTESTINAL ENDOSCOPY UPPER ENDOSCOPY Consent: Indications for the procedure and potential complications of bleeding, perforation, reaction to medications and missed diagnosis were discussed with the patient and informed consent was obtained. Instrument: Olympus GIF H 190 J mid size upper endoscope Monitoring: Vital signs and clinical assessment, continuous EKG monitoring, Pulse oximetry, Carbon Dioxide monitoring and blood pressure monitoring were done throughout the procedure. Procedure: The patient was placed in the left lateral decubitis position and pre-procedure medications were administered and a bite block was placed. The endoscope was inserted into the mouth and advanced under direct vision to the third part of duodenum. A careful inspection was made as the upper endoscope was withdrawn including a retroflexed examination of the proximal stomach; Findings and interventions are described below. Findings: Larynx:normal Esophagus: GE junction at 37 cm, diaphragm hiatus at 40 cm, consistent with 3 cm sliding hiatal hernia, LA grade A esophagitis noted at GEJ, bx taken from here and distal esophagus in separate jars, balloon dilation done to 20 mm at LES and UES--no tears seen. Stomach: Patchy gastric erythema. Biopsies were obtained. Grade 2 flap valve on retroflexed examination of the cardia. Duodenum: Normal bulb and descending duodenum, Intervention: Biopsies as noted above, balloon dilation Impression/Findings: gastritis hiatal hernia esophagitis PLAN: try to limit nsaid use, if needed can change to tylenol or celebrex reflux precautions if H pylori pos then treat
[2023-06-26 08:29] VITALS: BP 117/64; PULSE 84; RESP 16; TEMP 37.2; O2SAT 97
[2023-06-26 08:44] VITALS: BP 132/63; PULSE 70; RESP 18; TEMP 36.1; O2SAT 94
== END 2023-06-26 09:06 | disposition home or self-care (01) ==
PROVIDERS: PCP Internal Medicine; Visit Provider Internal Medicine Gastroenterology
PROC: 0DJ08ZZ Inspection of Upper Intestinal Tract, Via Natural or Artificial Opening Endoscopic (ICD-10-PCS; CPT 43235; principal; 2023-06-26 09:10)
DX: R13.19 Other dysphagia (principal); K21.9 Gastro-esophageal reflux disease without esophagitis; K20.80 Other esophagitis without bleeding; K29.70 Gastritis, unspecified, without bleeding; K44.9 Diaphragmatic hernia without obstruction or gangrene; R06.00 Dyspnea, unspecified; I10 Essential (primary) hypertension; E78.5 Hyperlipidemia, unspecified; F41.8 Other specified anxiety disorders; Z79.899 Other long term (current) drug therapy; Z79.82 Long term (current) use of aspirin; Z87.891 Personal history of nicotine dependence
CPT/HCPCS: 43249; 43239; 88305; 88313; 88342; C1726; J1100; J1596; J2704

== ENCOUNTER → 2023-06-26 07:06 | Outpatient (BNV) | payer BC, SELFPAY | PROVIDERS: PCP Internal Medicine; Visit Provider Internal Medicine Gastroenterology | DX: K21.00 Gastro-esophageal reflux disease with esophagitis, without bleeding (principal); R13.10 Dysphagia, unspecified; K29.70 Gastritis, unspecified, without bleeding | CPT/HCPCS: 43239; 43249 ==

== ENCOUNTER 2023-07-11 09:17 | Outpatient (AMB) | payer BC, SELFPAY ==
--- NOTE | 2023-07-11 09:29 | MHC.OFFVIS ---
Intake Vital Signs 07/11/23 09:33 Height 5 ft 4 in Weight 192 lb 12.814 oz BMI 33.1 BP 128/66 Blood Pressure Location Lt brachial Position Sitting Pulse 71 Intake Visit Reasons: S/p egd Intake Note: Pt c/o; reports no complaints at this time. 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 Discussed with patient avoiding dietary triggers and late night snacking. Staying upright for minimum 3 hours after meals discussed with patient. Patient will go for upper endoscopy that is schedule in June and follow-up in the office after. Barium swallow discussed with patient. What to expect before during and after the procedure discussed with patient. She is agreeable to plan of care and verbalizes understanding of instructions. She was given the opportunity to ask questions and all questions answered. ? Thank you for allowing me to participate in her care Medications Changed Changed From omeprazole 40 mg PO BID 60 caps 6RF 30 days Changed To omeprazole 40 mg PO BID 180 caps 2RF 90 days Discontinued famotidine (Pepcid) Discontinued Reason: Doctor's Order 20 mg PO BEDTIME 30 tabs 3RF K21.9 UPPER ENDOSCOPY Findings: Larynx:normal Esophagus: GE junction at 37 cm, diaphragm hiatus at 40 cm, consistent with 3 cm sliding hiatal hernia, LA grade A esophagitis noted at GEJ, bx taken from here and distal esophagus in separate jars, balloon dilation done to 20 mm at LES and UES--no tears seen. Stomach: Patchy gastric erythema. Biopsies were obtained. Grade 2 flap valve on retroflexed examination of the cardia. Duodenum: Normal bulb and descending duodenum, Intervention: Biopsies as noted above, balloon dilation Impression/Findings: gastritis hiatal hernia esophagitis PLAN: try to limit nsaid use, if needed can change to tylenol or celebrex reflux precautions if H pylori pos then treat PATHOLOGY RESULTS Diagnosis A. Stomach, biopsy: Antral-type mucosa with mild chronic inactive inflammation; no Helicobacter organisms seen. B. EG junction, biopsy: - Cardiofundic-type mucosa with mild chronic inactive inflammation; no intestinal metaplasia seen. - Squamous mucosa within normal limits. C. Esophagus, distal, biopsy: Squamous epithelium within normal limits; no inflammation seen. TODAY'S VISIT Patient is here today for follow-up and to discuss upper endoscopy results. Patient reports that she has been feeling well, denies any ill effects from anesthesia or procedure itself. Patient reports that she has no issue swallowing now, however she continues to have breathless like feeling and choking episodes when she is laughing. Patient never seen ENT in the past. Modified barium swallow was normal. Patient reports that her symptoms of acid reflux are suppressed with omeprazole. Biopsy results discussed with patient. No H pylori and no dysplasia found on her endoscopy. Patient denies any dyspepsia, dysphagia or odynophagia. 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 Mother No problems noted. Social History Housing: House Alcohol intake: never Patient Tobacco Use Status: Never used Tobacco Tobacco use type: Cigarette e-Cigarette/Vaping Use: Never Used Second Hand Smoke Exposure: No Current occupational status: employed Cognitive needs: No Hearing needs: No Vision needs: Yes Review of Systems Const Denies weight gain and Denies weight loss ENT Reports no additional complaints, Denies dysphagia and Denies odynophagia Card Reports no additional complaints Resp Reports no additional complaints GI Denies abdominal pain, Denies belching, Denies melena, Denies bloating, Denies change in bowel habits, Denies dysphagia, Denies excessive flatus, Denies dyspepsia, Denies heartburn, Denies diarrhea, Denies loose stools, Denies nausea, Denies odynophagia, Denies vomiting and Reports other (Choking episodes when laughing) Reports no additional complaints Musc Reports no additional complaints Neuro Reports no additional complaints Psych Reports no additional complaints Endo Reports no additional complaints Physical Exam Vital Signs: Last Vital Signs Pulse 71 07/11/23 09:33 BP 128/66 07/11/23 09:33 BMI result Body Mass Index 33.1 Const General: healthy appearing, no acute distress and well developed Nutritional Appearance: obese Orientation/consciousness: patient oriented x3 Resp Effort & Inspection: normal respiratory effort, able to speak in complete sentences, no tracheal deviation and symmetric chest movement Auscultation: clear to auscultation bilaterally Cardio Rate: regular rate GI Inspection: Yes normal to inspection, No distended and Yes obesity Palpation (GI): Soft to palpation, not firm, nontender and No hepatosplenomegaly present Auscultation: normal bowel sounds General: Yes no CVA tenderness Back/Spine/Pelvis Back: no CVA tenderness Skin General skin exam: elasticity normal, turgor normal and dry skin Neuro General: patient oriented x3 Psych Appearance: grossly normal Mental Status: mental status grossly normal Assessment & Plan Assessment & Plan (1) Dysphagia: Code(s): R13.10 - Dysphagia, unspecified Qualifiers: Dysphagia type: esophageal phase Qualified Code(s): R13.19 - Other dysphagia (2) GERD (gastroesophageal reflux disease): Code(s): K21.9 - Gastro-esophageal reflux disease without esophagitis Qualifiers: Esophagitis presence: esophagitis presence not specified Qualified Code(s): K21.9 - Gastro-esophageal reflux disease without esophagitis (3) History of choking: Code(s): Z87.898 - Personal history of other specified conditions (4) Hiatal hernia: Code(s): K44.9 - Diaphragmatic hernia without obstruction or gangrene Plan Patient will continue taking omeprazole every morning half an hour before breakfast. Patient states that she has been constipated lately most likely due to pain medications that she has been taking after her surgery. Patient can start taking MiraLax daily. Referral to ENT for evaluation of choking episodes when she is in. Patient has no trouble swallowing food. We did modified barium swallow that did not show any abnormality. Continue avoiding dietary triggers like night snacking. Staying upright for minimum 3 hours after meals discussed patient. I will see patient in 6 months, sooner on as needed basis. Patient is agreeable to this plan and verbalizes understanding of instructions. She was given the opportunity to ask questions and all questions answered. Thank you for allowing me to participate in her care Orders: Referrals Ear/Nose/Throat Referral R13.10 - Dysphagia, unspecified Medications: New polyethylene glycol 3350 (Miralax) 17 grams PO DAILY 510 grams 2RF Changed From omeprazole 40 mg PO BID 90 days 180 caps 2RF To omeprazole 40 mg PO DAILY 90 days 90 caps 2RF Coding Level of Care Code Est Pt Level 4 (13807) Diagnoses Esophageal dysphagia R13.19 Dysphagia type: esophageal phase Gastroesophageal reflux disease, unspecified whether esophagitis present K21.9 Esophagitis presence: esophagitis presence not specified History of choking Z87.898 Hiatal hernia K44.9 Time Spent (min) 35 Comment 20 minutes spent with patient and additional 15 minutes spent reviewing her records
[2023-07-11 09:33] VITALS: BP 128/66; PULSE 71; BMI 33.1
== END 2023-07-11 09:56 | disposition home or self-care (01) ==
PROVIDERS: PCP Internal Medicine; Visit Provider Nurse Practitioner Family
DX: R13.19 Other dysphagia (principal); K21.9 Gastro-esophageal reflux disease without esophagitis; Z87.898 Personal history of other specified conditions; K44.9 Diaphragmatic hernia without obstruction or gangrene
CPT/HCPCS: 99214

== ENCOUNTER → 2023-07-11 09:17 | Outpatient (BNVA) | payer BC, SELFPAY | PROVIDERS: PCP Internal Medicine; Visit Provider Nurse Practitioner Family ==

== ENCOUNTER 2023-09-18 12:55 | Outpatient (AMB) | payer BC, SELFPAY ==
[2023-09-18 13:38] VITALS: BP 116/70; PULSE 81; O2SAT 94; BMI 33.3
--- NOTE | 2023-09-18 13:38 | A.OFFPC_ITS ---
Vital Signs 09/18/23 13:38 Height 5 ft 4 in Weight 194 lb BMI 33.3 BP 116/70 Blood Pressure Location Lt brachial Position Sitting Pulse 81 Pulse Source Pulse Oximeter Pulse Oximetry (%) 94 Oxygen Delivery Method Room Air Intake Visit Reasons: Sick diarrhea vomiting Intake Note: Pt is here today for a sick visit. Pt c/o diarrhea, vomiting and abdominal pain since Friday Allergies No Known Allergies Allergy (Verified 09/18/23 13:44) Medication List - Last Reconciled 09/18/23 by Naa Avelar MD amlodipine-benazepril 5-20 mg 1 cap PO DAILY aspirin 81 mg PO DAILY atenolol 50 mg PO BID atorvastatin 80 mg PO DAILY fluticasone furoate-vilanterol 200-25 mcg/dose (Breo Ellipta) 1 inh inhalation DAILY 30 days ibuprofen 600 mg PO Q8H omeprazole 40 mg PO DAILY 90 days polyethylene glycol 3350 (Miralax) 17 grams PO DAILY sertraline 50 mg PO DAILY Tobacco use date assessed: 09/18/23 Fall risk assessment: No Falls in past year Last assessed Fall Risk: 09/18/23 Dental Screening Dental Screen Date: 02/06/23 Did you have a dental visit in the last 12 months?: Yes Did you have a dental problem in the last 6 months where you did not have access to dental care?: No Was dental information given to patient?: Patient has dentist HPI Sick diarrhea vomiting HPI Details Pt c/o watery diarrhea, nausea and vomiting diffuse abdominal pain for 3 days. 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 Patient has been able to drink small amount of liquids but not able to tolerate any food. Patient reports slight burning sensation while urinating. 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 Mother No problems noted. Social History Housing: House Alcohol intake: never Patient Tobacco Use Status: Never used Tobacco Tobacco use type: Cigarette e-Cigarette/Vaping Use: Never Used Second Hand Smoke Exposure: No service: No Current occupational status: employed Cognitive needs: No Hearing needs: No Vision needs: Yes Questionnaire Thrive Questionnaire Date Thrive assessed: 06/21/22 AUDIT C Alcohol Use Questionnaire (AUDIT-C) 1. How often do you have a drink containing alcohol?: Never 3. How often do you have six or more drinks on one occasion?: Never Total Score: 0 CHRISS-7 AMB Questionnaire CHRISS-7 Date CHRISS - 7 assessed: 06/21/22 Source: Developed by Drs. Blaine Daily, Carleen Barnett, Alton Hebert and colleagues, with an educational gibran from [employer]. Review of Systems Const All systems reviewed & are unremarkable except as noted in HPI and below ENT Reports no additional complaints Card Reports no additional complaints Resp Reports no additional complaints GI Reports no additional complaints Physical exam (Primary Care) Vital Signs: Last Vital Signs Pulse 81 09/18/23 13:38 BP 116/70 09/18/23 13:38 Pulse Ox 94 09/18/23 13:38 Oxygen Delivery Method Room Air 09/18/23 13:38 BMI result Body Mass Index 33.3 Tobacco/Smoking Status: Tobacco use Status Tobacco use date assessed 09/18/23 09/18/23 13:45 Patient Tobacco Use Status Never used Tobacco 09/18/23 13:39 Tobacco use type Cigarette 09/18/23 13:39 e-Cigarette/Vaping Use Never Used 09/18/23 13:39 Thrive Assessment: Date of Thrive Assessment Date Thrive assessed 06/21/22 09/18/23 13:39 Const General: no acute distress Resp Effort & Inspection: normal respiratory effort Auscultation: clear to auscultation bilaterally Cardio Rhythm: regular rhythm Heart sounds: S1 normal heart sound present and S2 normal heart sound present GI Inspection: Yes normal to inspection Palpation (GI): Soft to palpation and No Rebound tenderness present Percussion: Yes normal to percussion Auscultation: normal bowel sounds Assessment and Plan Assessment & Plan (1) Dysuria: Code(s): R30.0 - Dysuria Plan: Check urine culture (2) Viral gastroenteritis: Code(s): A08.4 - Viral intestinal infection, unspecified Plan: Supportive care discussed with the patient Orders: Orders Urine Culture Today R30.0 - Dysuria Coding Level of Care Code Est Pt Level 3 (89565) Diagnoses Dysuria R30.0 Viral gastroenteritis A08.4
== END 2023-09-18 15:09 | disposition home or self-care (01) ==
LOC: HO.HMGC 12:55
PROVIDERS: PCP Internal Medicine; Visit Provider Internal Medicine
DX: R30.0 Dysuria (principal); A08.4 Viral intestinal infection, unspecified
CPT/HCPCS: 99213

== ENCOUNTER 2023-09-22 07:22 | Outpatient (REF) | payer BC, SELFPAY | END 2023-09-22 07:23 | disposition home or self-care (01) | LOC: HO.HMGCLNP 07:22 | PROVIDERS: PCP Internal Medicine; Visit Provider Internal Medicine | DX: R30.0 Dysuria (principal) | CPT/HCPCS: 87086; 87088; 87186 ==

== ENCOUNTER 2024-01-09 08:53 | Outpatient (AMB) | payer BC, SELFPAY ==
--- NOTE | 2024-01-09 09:04 | A.OFFVIS_ITS ---
Vital Signs 01/09/24 09:05 Height 5 ft 4 in Weight 194 lb 14.218 oz BMI 33.4 BP 144/70 H Blood Pressure Location Rt brachial Position Sitting Pulse 72 Pulse Source Pulse Oximeter Pulse Oximetry (%) 96 Oxygen Delivery Method Room Air Intake Visit Reasons: 6 month follow up Intake Note: Elsa presents in office today for a scheduled 6 mos FUV. CC; Pt was rx'd omeprazole and miralax at their last visit. No lab orders were placed at their most recent visit. Pt reports that they have had a positive response to the new medications and has been doing well overall. Dope Mixer Required: No Dope Mixer Services: Dope Mixer Offered & Declined Information Interpreted: non-clinical & clinical Allergies No Known Allergies Allergy (Verified 01/09/24 09:06) HPI HPI 6 month follow up: Details: LAST VISIT Dysphagia GERD (gastroesophageal reflux disease) History of choking Hiatal hernia Plan Patient will continue taking omeprazole every morning half an hour before breakfast. Patient states that she has been constipated lately most likely due to pain medications that she has been taking after her surgery. Patient can start taking MiraLax daily. Referral to ENT for evaluation of choking episodes when she is in. Patient has no trouble swallowing food. We did modified barium swallow that did not show any abnormality. Continue avoiding dietary triggers like night snacking. Staying upright for minimum 3 hours after meals discussed patient. I will see patient in 6 months, sooner on as needed basis. Patient is agreeable to this plan and verbalizes understanding of instructions. She was given the opportunity to ask questions and all questions answered. ? Thank you for allowing me to participate in her care Orders Referrals Ear/Nose/Throat Referral R13.10 Medications New polyethylene glycol 3350 (Miralax) 17 grams PO DAILY 510 grams 2RF Changed Changed From omeprazole 40 mg PO BID 90 days 180 caps 2RF Changed To omeprazole 40 mg PO DAILY 90 days 90 caps 2RF TODAY'S VISIT Patient is here today for follow-up. Patient reports that she has been doing well for the most part. Patient is taking omeprazole daily and reports that her symptoms of acid reflux are suppressed for the most part. Patient states that she is moving her bowels better now. Patient is eating high-fiber diet. Reports to be drinking plenty fluids. Denies melena, hematochezia, unintentional weight loss or ribbon like stools. Patient continues however to have trouble swallowing and clears her throat often. Patient denies dyspepsia or odynophagia. Denies any nausea or vomiting. Patient reports to have good appetite. 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 Mother No problems noted. Social History Housing: House Alcohol intake: never Patient Tobacco Use Status: Never used Tobacco Tobacco use type: Cigarette e-Cigarette/Vaping Use: Never Used Second Hand Smoke Exposure: No service: No Current occupational status: employed Cognitive needs: No Hearing needs: No Vision needs: Yes Review of Systems Const Details: Reports feeling dizzy, hit head few days ago. Reports headache(s), Denies weight gain and Denies weight loss ENT Reports no additional complaints, Denies dysphagia, Reports headache(s) and Denies odynophagia Card Reports no additional complaints Resp Reports no additional complaints GI Denies abdominal pain, Denies belching, Denies melena, Denies bloating, Denies change in bowel habits, Denies dysphagia, Denies excessive flatus, Denies dyspepsia, Denies heartburn, Denies diarrhea, Denies loose stools, Denies nausea, Denies odynophagia, Denies vomiting and Reports other (Choking episodes when laughing) Reports no additional complaints Musc Reports no additional complaints Neuro Reports no additional complaints and Reports headache(s) Psych Reports no additional complaints Endo Reports no additional complaints Physical Exam Vital Signs: Last Vital Signs Pulse 72 01/09/24 09:05 BP 144/70 H 01/09/24 09:05 Pulse Ox 96 01/09/24 09:05 Oxygen Delivery Method Room Air 01/09/24 09:05 BMI result Body Mass Index 33.4 Const General: healthy appearing, no acute distress and well developed Nutritional Appearance: obese Orientation/consciousness: patient oriented x3 Resp Effort & Inspection: normal respiratory effort, able to speak in complete sentences, no tracheal deviation and symmetric chest movement Auscultation: clear to auscultation bilaterally Cardio Rate: regular rate GI Inspection: Yes normal to inspection, No distended and Yes obesity Palpation (GI): Soft to palpation, not firm, nontender and No hepatosplenomegaly present Auscultation: normal bowel sounds General: Yes no CVA tenderness Back/Spine/Pelvis Back: no CVA tenderness Skin General skin exam: elasticity normal, turgor normal and dry skin Neuro General: patient oriented x3 Psych Appearance: grossly normal Mental Status: mental status grossly normal Assessment & Plan Assessment & Plan (1) Dysphagia: Code(s): R13.10 - Dysphagia, unspecified Category: Medical Qualifiers: Dysphagia type: esophageal phase Qualified Code(s): R13.19 - Other dysphagia (2) Elevated LFTs: Code(s): R79.89 - Other specified abnormal findings of blood chemistry Category: Medical (3) GERD (gastroesophageal reflux disease): Code(s): K21.9 - Gastro-esophageal reflux disease without esophagitis Category: Medical Qualifiers: Esophagitis presence: esophagitis presence not specified Qualified Code(s): K21.9 - Gastro-esophageal reflux disease without esophagitis (4) Head injuries: Code(s): S09.90XA - Unspecified injury of head, initial encounter Qualifiers: Encounter type: initial encounter Qualified Code(s): S09.90XA - Unspecified injury of head, initial encounter Plan Continue omeprazole daily. Avoid dietary triggers and late night snacking. Patient will be sent for CT scan of the head reports that she hit her head few days ago. Patient reports to be feeling foggy, worries that something might be wrong. Normal neuro exam. CT of the neck as patient continues to have trouble swallowing. Patient will follow-up in 6 months, sooner on as needed basis. She is agreeable to this plan and verbalizes understanding of instructions. She was given the opportunity to ask questions and all questions answered. Thank you for allowing me to participate in her care Orders: Orders CT head/brain wo IV con 01/09/24 S09.90XA - Unspecified injury of head, initial encounter CT soft tissue neck wo IV con 01/09/24 R13.19 - Other dysphagia Medications: Refilled omeprazole 40 mg PO DAILY 90 caps 2RF 90 days Discontinued polyethylene glycol 3350 Discontinued Reason: Patient no longer taking 17 grams PO DAILY 510 grams 2RF Coding Level of Care Code Est Pt Level 4 (83971) Diagnoses Esophageal dysphagia R13.19 Dysphagia type: esophageal phase Elevated LFTs R79.89 Gastroesophageal reflux disease, unspecified whether esophagitis present K21.9 Esophagitis presence: esophagitis presence not specified Injury of head, initial encounter S09.90XA Encounter type: initial encounter Time Spent (min) 35 Comment 20 minutes spent with patient and additional 15 minutes spent reviewing her records
[2024-01-09 09:05] VITALS: BP 144/70; PULSE 72; O2SAT 96; BMI 33.4
== END 2024-01-09 09:29 | disposition home or self-care (01) ==
PROVIDERS: PCP Internal Medicine; Visit Provider Nurse Practitioner Family
DX: R13.19 Other dysphagia (principal); R79.89 Other specified abnormal findings of blood chemistry; K21.9 Gastro-esophageal reflux disease without esophagitis; S09.90XA Unspecified injury of head, initial encounter
CPT/HCPCS: 99214

== ENCOUNTER → 2024-01-09 08:53 | Outpatient (BNVA) | payer BC, SELFPAY | PROVIDERS: PCP Internal Medicine; Visit Provider Nurse Practitioner Family ==

== ENCOUNTER 2024-02-10 11:33 | Outpatient (AMB) | payer BC, SELFPAY ==
[2024-02-10 11:42] VITALS: BP 126/66; PULSE 66; O2SAT 97; BMI 33.1
--- NOTE | 2024-02-10 11:42 | A.OFFPC_ITS ---
Vital Signs 02/10/24 11:42 Height 5 ft 4 in Weight 193 lb BMI 33.1 BP 126/66 Blood Pressure Location Lt brachial Position Sitting Pulse 66 Pulse Source Pulse Oximeter Pulse Oximetry (%) 97 Oxygen Delivery Method Room Air Intake Visit Reasons: Follow up Intake Note: Pt is here today for a sick visit. Pt c/o pain on the L side of her buttock that goes down to her leg. Pt also states that she has been having pain in her kidney area. Allergies No Known Allergies Allergy (Verified 02/10/24 12:11) Medication List - Last Reconciled 02/10/24 by Naa Avelar MD amlodipine-benazepril 5-20 mg 1 cap PO DAILY aspirin 81 mg PO DAILY atenolol 50 mg PO BID atorvastatin 80 mg PO DAILY fluticasone furoate-vilanterol 200-25 mcg/dose (Breo Ellipta) 1 inh inhalation DAILY 30 days ibuprofen 600 mg PO Q8H omeprazole 40 mg PO DAILY 90 days sertraline 50 mg PO DAILY Tobacco use date assessed: 02/10/24 Dental Screening Dental Screen Date: 02/06/23 HPI Follow up HPI Details Patient presents complaining of persistent lower abdominal pelvic discomfort pulling sensation and right flank pain on and off for few months. Patient was treated for a few episodes of UTIs by urogynecologist in the last few months. She was prescribed estrogen vaginal cream but never used it. Hypertension is controlled on current medications. 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 Mother No problems noted. Social History Housing: House Alcohol intake: never Patient Tobacco Use Status: Never used Tobacco e-Cigarette/Vaping Use: Never Used Second Hand Smoke Exposure: No service: No Current occupational status: employed Cognitive needs: No Hearing needs: No Vision needs: Yes Questionnaire PHQ-9 Over the last 2 weeks, how often have you been bothered by any of the following problems? 1. Little interest or pleasure in doing things: not at all 2. Feeling down, depressed, or hopeless: not at all 3. Trouble falling or staying asleep, or sleeping too much: not at all 4. Feeling tired or having little energy: not at all 5. Poor appetite or overeating: not at all 6. Feeling bad about yourself - or that you are a failure or have let yourself or your family down: not at all 7. Trouble concentrating on things, such as reading the newspaper or watching television: not at all 8. Moving or speaking so slowly that other people could have noticed. Or the opposite - being so fidgety or restless that you have been moving around a lot more than usual: not at all 9. Thoughts that you would be better off or of hurting yourself in some way: not at all Total score: 0 Depression Screening Interpretation: Negative Depression Screening Done: Yes 69128 - PHQ-9 Billing: Yes Source: Developed by Drs. Blaine Daily, Carleen Barnett, Alton Hebert and colleagues, with an educational gibran from [employer]. Thrive Questionnaire Date Thrive assessed: 02/10/24 I am a: Patient What is your living situation today?: I have a steady place to live Within the past 12 months, did the food you bought not last and you didn't have the money to get more?: Never true Within the past 12 months, did you worry whether your food would run out before you got money to buy more?: Never true Do you have trouble paying for medicines?: No Do you have trouble getting transportation to medical appointments?: No Do you have trouble paying your heating and electricity bill?: No Do you have trouble taking care of your child, family member or friend?: No Do you have trouble with day-to-day activities such as bathing, preparing meals, shopping, managing finances, etc.?: No Are you currently unemployed and looking for a job?: No Are you interested in more education?: No Please select the resources that you would like help with: None THRIVE Score: 0 AUDIT C Alcohol Use Questionnaire (AUDIT-C) 1. How often do you have a drink containing alcohol?: Never 3. How often do you have six or more drinks on one occasion?: Never Total Score: 0 CHRISS-7 AMB Questionnaire CHRISS-7 Date CHRISS - 7 assessed: 02/10/24 Feeling nervous, anxious, or on edge: 0 = Not at all Not being able to stop or control worryin = Not at all Worrying too much about different things: 0 = Not at all Trouble relaxin = Not at all Being so restless that it is hard to sit still: 0 = Not at all Becoming easily annoyed or irritable: 0 = Not at all Feeling afraid as if something awful might happen: 0 = Not at all Total CHRISS-7 score (0-4 normal; 5-9 mild; 10-14 moderate; 15-21 severe): 0 Source: Developed by Drs. Blaine Daily, Carleen Barnett, Alton Hebert and colleagues, with an educational gibran from [employer]. CHRISS-7 Assessment Billing CHRISS-7 Assessment Tool: CHRISS-7 Assessment 78425 Review of Systems Const All systems reviewed & are unremarkable except as noted in HPI and below Eyes Reports no additional complaints Card Reports no additional complaints Resp Reports no additional complaints GI Reports no additional complaints Reports no additional complaints Physical exam (Primary Care) Vital Signs: Last Vital Signs Pulse 66 02/10/24 11:42 BP 126/66 02/10/24 11:42 Pulse Ox 97 02/10/24 11:42 Oxygen Delivery Method Room Air 02/10/24 11:42 BMI result Body Mass Index 33.1 Tobacco/Smoking Status: Tobacco use Status Tobacco use date assessed 02/10/24 02/10/24 12:11 Patient Tobacco Use Status Never used Tobacco 02/10/24 12:11 Tobacco use type 02/10/24 12:11 e-Cigarette/Vaping Use Never Used 02/10/24 11:42 PHQ-9: PHQ-9 Score PHQ-9: Total score 0 02/10/24 12:11 Depression Screening Interpretation: Negative Thrive Assessment: Date of Thrive Assessment Date Thrive assessed 02/10/24 02/10/24 12:11 Const General: no acute distress HENMT Head: Yes normal to inspection Throat: Yes posterior oropharynx normal Resp Effort & Inspection: normal respiratory effort Auscultation: clear to auscultation bilaterally Cardio Rhythm: regular rhythm Heart sounds: S1 normal heart sound present and S2 normal heart sound present GI Other: Slight tenderness in right lower quadrant no rebound or guarding Inspection: Yes normal to inspection Palpation (GI): Soft to palpation Percussion: Yes normal to percussion Auscultation: normal bowel sounds Assessment and Plan Assessment & Plan (1) Urinary tract infection: Code(s): N39.0 - Urinary tract infection, site not specified Plan: For recurrent UTI patient will have urine and culture checked. She was prescribed estradiol vaginal cream to use twice a week, renal and bladder ultrasound will be obtained to rule out nephrolithiasis or urinary bladder retention (2) Uterine prolapse: Comment: S/P SCP,Ar, TVT Dr. Pruett 06/2023 [facility] Code(s): N81.4 - Uterovaginal prolapse, unspecified (3) HTN (hypertension): Code(s): I10 - Essential (primary) hypertension Qualifiers: Hypertension type: primary hypertension Qualified Code(s): I10 - Essential (primary) hypertension Plan: Continue current medications return for fasting blood work and follow-up in 1 month (4) Hyperlipidemia: Code(s): E78.5 - Hyperlipidemia, unspecified Qualifiers: Hyperlipidemia type: unspecified Qualified Code(s): E78.5 - Hyperlipidemia, unspecified Plan: Continue statin (5) Annual physical exam: Code(s): Z00.00 - Encounter for general adult medical examination without abnormal findings Orders: Orders Comprehensive [place]. Panel Fast 1 Month E78.5 - Hyperlipidemia, unspecified, I10 - Essential (primary) hypertension, Z00.00 - Encounter for general adult medical examination without abnormal findings Lipid Panel 1 Month E78.5 - Hyperlipidemia, unspecified, I10 - Essential (primary) hypertension, Z00.00 - Encounter for general adult medical examination without abnormal findings TSH reflex Free T4 1 Month E78.5 - Hyperlipidemia, unspecified, I10 - Essential (primary) hypertension, Z00.00 - Encounter for general adult medical examination without abnormal findings Vitamin D 25-OH Total 1 Month E78.5 - Hyperlipidemia, unspecified, I10 - Essential (primary) hypertension, Z00.00 - Encounter for general adult medical examination without abnormal findings US renal BI Today N20.0 - Calculus of kidney US bladder Today N20.0 - Calculus of kidney, N39.0 - Urinary tract infection, site not specified, N81.4 - Uterovaginal prolapse, unspecified, R30.0 - Dysuria UA w Microscopic Today N39.0 - Urinary tract infection, site not specified Urine Culture Today N39.0 - Urinary tract infection, site not specified Complete Blood Count Auto Diff 1 Month E78.5 - Hyperlipidemia, unspecified, I10 - Essential (primary) hypertension, Z00.00 - Encounter for general adult medical examination without abnormal findings Medications: New 2 estradiol 0.01%(0.1mg/gram) 1 g vaginal 2XW 42.5 grams 4RF Coding Level of Care Code Est Pt Level 4 (80420) Diagnoses Urinary tract infection N39.0 Uterine prolapse N81.4 Primary hypertension I10 Hypertension type: primary hypertension Hyperlipidemia, unspecified hyperlipidemia type E78.5 Hyperlipidemia type: unspecified Annual physical exam Z00.00 Additional Codes CHRISS-7 Assessment Billing - CHRISS-7 Assessment Tool: CHRISS-7 Assessment 09740 ([id number])
== END 2024-02-10 12:51 | disposition home or self-care (01) ==
PROVIDERS: PCP Internal Medicine; Visit Provider Internal Medicine
DX: E78.5 Hyperlipidemia, unspecified (principal); N39.0 Urinary tract infection, site not specified; N81.4 Uterovaginal prolapse, unspecified; I10 Essential (primary) hypertension
CPT/HCPCS: 99214

== ENCOUNTER 2024-02-11 08:21 | Outpatient (REF) | payer BC, SELFPAY ==
[2024-02-11 10:09] LABS: MANUAL DIFF FLAG NO
[2024-02-11 10:20] LABS: Basophils Percent Auto 0.5 % (0-2); Eosinophils Absolute Auto 0.2 X10*3/uL (0.0-0.4); Eosinophils Percent Auto 2.4 % (0-4); Hematocrit 37.9 % (37.0-47.0); Hemoglobin 12.6 g/dl (12.0-16.0); Imm Gran Abs Auto 0.01 X10*3/uL (0.00-0.03); Imm Gran Pct Auto 0.2 % (0.0-0.4); Lymphocytes Absolute Auto 2.2 X10*3/uL (1.2-4.9); Lymphocytes Percent Auto 34.7 % (20-40); Mean Corpuscular HGB Conc 33.2 g/dl (31.0-35.0); Mean Corpuscular Hemoglobin 29.6 pg (27.0-33.0); Mean Platelet Volume 10.2 fL (9.4-12.3); Monocytes Absolute Auto 0.5 X10*3/uL (0.1-1.2); Monocytes Percent Auto 7.2 % (2-11); Neutrophils Absolute Auto 3.4 x10*3/uL (2.0-8.3); Platelet Count 244 X10*3/uL (160-400); Red Blood Count 4.26 X10*6/uL (4.20-5.50); Red Cell Distribution Width 12.7 % (11.0-16.0); White Blood Count 6.2 X10*3/uL (4.8-10.8)
[2024-02-11 10:40] LABS: Appearance Urine Cloudy; Color Urine Yellow; Glucose Urine UA Negative (Negative); Leukocyte Esterase Urine Large (3+) (Negative); Nitrite Urine Negative (Negative); PH 5.5 (5.0-9.0); Specific Gravity - Urine 1.015 (1.005-1.025); UMIC TRIGGER UA YES; Urine Blood Moderate (2+) (Negative); Urine Ketones Negative (Negative); Urine Protein Trace mg/dL (Neg-Trace)
[2024-02-11 10:46] LABS: Bacteria Urine 4+ (None Seen); Hyaline Casts Urine 0-2 /LPF (0-2); WBC Urine >50 /HPF (0-5)
[2024-02-11 10:50] LABS: Alanine Aminotransferase 34 U/L (0-31); Albumin Level 4.3 g/dL (3.5-5.0); Alkaline Phosphatase 73 U/L (39-117); Anion Gap 11 (12-20); Aspartate Amino Transferase 23 U/L (5-31); Bilirubin Total 0.7 mg/dL (0.0-1.0); Blood Urea Nitrogen 11 mg/dL (9-16); Calcium 9.3 mg/dL (8.4-10.2); Carbon Dioxide 27 mmol/L (22-29); Chloride 108 mmol/L (96-108); Cholesterol 240 mg/dL (<200); Estimated Glomerular Filt Rate > 60; Glucose Fasting 108 mg/dL (60-99); HDL Cholesterol 69 mg/dL (>40); LDL Cholesterol Calculated 148 mg/dL (<100); Potassium 3.8 mmol/L (3.3-5.1); Sodium 142 mmol/L (135-145); Total Protein 7.2 g/dL (6.5-8.0); Triglycerides 117 mg/dL (<150)
[2024-02-11 10:56] LABS: TSH reflex Free T4 2.05 uIU/mL (0.32-4.0); Vitamin D 25-OH Total 87.4 ng/mL (>30)
== END 2024-02-11 08:22 | disposition home or self-care (01) ==
LOC: HO.HMGCLDS 08:21
PROVIDERS: PCP Internal Medicine; Visit Provider Internal Medicine
DX: Z00.00 Encounter for general adult medical examination without abnormal findings (principal); E78.5 Hyperlipidemia, unspecified; I10 Essential (primary) hypertension; N39.0 Urinary tract infection, site not specified
CPT/HCPCS: 36415; 80053; 80061; 81001; 82306; 84443; 85025; 87086; 87088; 87186

== ENCOUNTER 2024-02-18 07:11 | Outpatient (REF) | payer BC, SELFPAY ==
--- NOTE | ~2024-02-18 | CT_ITS ---
EXAMINATION CT HEAD WITHOUT CONTRAST CLINICAL INFORMATION: Head injury COMPARISON: None TECHNIQUE: CT of the head was performed without intravenous contrast. Reformatted axial, coronal, and sagittal images were reviewed. This CT examination was performed using dose optimization techniques as appropriate, variously including the following: *Automated exposure control *Adjustment of mA and/or kV according to patient size (this includes techniques or standardized protocols for targeted exams where dose is matched to indication/reason for exam; i.e. extremities or head) *Use of iterative reconstruction technique DLP: 772 mGy-cm FINDINGS: No intracranial hemorrhage, extra-axial fluid collection, or midline shift is identified. M[place]uia-white matter differentiation is preserved. The ventricles are within normal limits. Basal cisterns are within normal limits. Paranasal sinuses are clear. Mastoid air cells and middle ear cavities are clear. No acute calvarial fractures. CT/CT head/brain wo IV con IMPRESSION: No acute intracranial abnormality. Electronically signed by: Eligio Infante DO 02/18/2024 10:45 PM EDT
--- NOTE | ~2024-02-18 | CT_ITS ---
EXAMINATION: CT SOFT TISSUE NECK WITHOUT CONTRAST CLINICAL INFORMATION: Dysphagia. COMPARISON: CT chest from 01/22/2023. TECHNIQUE: Multidetector helical imaging was performed in the axial plane without intravenous contrast. Multiple axial reformats and coronal/sagittal reconstructions were created the technologist workstation for review. This CT examination was performed using dose optimization techniques as appropriate, variously including the following: *Automated exposure control. *Adjustment of mA and/or kV according to patient size (this includes techniques or standardized protocols for targeted exams where dose is matched to indication/reason for exam; i.e. extremities or head). *Use of iterative reconstruction technique. DLP: 1105 mGy-cm FINDINGS: No significant cutaneous thickening or subcutaneous inflammation. No discrete fluid collection within the deep tissues of the neck. The premaxillary, retromaxillary, pterygopalatine fossa, orbital apical, parapharyngeal, and prelaryngeal adipose tissue is maintained. Normal appearance of the parotid, submandibular, and thyroid glands. Scattered subcentimeter lymph nodes bilaterally, none of which are pathologically enlarged. No demonstrated focal lesion within the intrinsic tissues of the tongue or floor of mouth. Normal mucosal contours of the pharynx and larynx. Normal appearance of the hyoid bone, thyroid cartilage, or cartilaginous trachea. The airways remains widely patent. No radiopaque foreign bodies. The atlantooccipital and atlantoaxial articulations remain well aligned. Straightening of the normal cervical lordosis. Mild degenerative retrolisthesis of C3 on C4. Mild degenerative anterolisthesis of C4 on C5. No evidence of acute fracture or subluxation of the cervical spine. The vertebral body heights are maintained. Advanced degenerative disc disease at C3-C4 and from C5-C7. Facet and uncovertebral joint arthropathy leads to osseous encroachment on the neural foramina from C3-C7. There is no prevertebral soft tissue swelling. The visualized portion of the skull base is without significant abnormalities. The visualized paranasal sinuses are clear. The mastoid air cells and middle ear cavities are clear. The patient is edentulous. CT Upper Chest: Chronic irregular scarring and calcified nodules scattered throughout the upper lobes.. CT/CT soft tissue neck wo IV con IMPRESSION: 1. No demonstrated focal lesion, collection, or lymphadenopathy within the soft tissues of the neck. 2. Moderate multilevel degenerative spondyloarthropathy of the cervical spine. 3. Chronic irregular scarring and calcified nodules scattered throughout the upper lobes suggestive of sequela of a nonspecific granulomatous process. Electronically signed by: Edenilson Barraza DO 03/14/2024 03:24 AM EDT RP
== END 2024-02-18 07:12 | disposition home or self-care (01) ==
LOC: HO.CT 07:11
PROVIDERS: PCP Internal Medicine; Visit Provider Nurse Practitioner Family
DX: S09.90XA Unspecified injury of head, initial encounter (principal); R13.19 Other dysphagia
CPT/HCPCS: 70450; 70490

== ENCOUNTER 2024-02-18 10:16 | Outpatient (REF) | payer BC, SELFPAY ==
--- NOTE | ~2024-02-18 | US_ITS ---
EXAMINATION: US RETROPERITONEAL COMPLETE (RENAL) CLINICAL INFORMATION: Calculus of kidney. COMPARISON: MRI kidneys 06/22/2021. Ultrasound abdomen complete 04/20/2021 and 08/19/2017. TECHNIQUE: Real-time imaging of the kidneys and bladder. FINDINGS: RIGHT KIDNEY: 12.8 x 3.7 x 5.4 cm (SAG x AP x TRV). The kidney is normal in size, contour, and echogenicity. Renal cortical thickness is normal. No renal calculi or hydronephrosis. Benign-appearing renal cyst measuring 1.3 cm. No follow up imaging is recommended. LEFT KIDNEY: 11.4 x 5.6 x 4.1 cm (SAG x AP x TRV). The kidney is normal in size, contour, and echogenicity. Renal cortical thickness is normal. No calculi or focal parenchymal lesions. No hydronephrosis. BLADDER: Well distended and normal. Bilateral ureteral jets are demonstrated. Prevoid bladder volume is 380 mL. Postvoid bladder volume is 67.5 mL. US/US retroperitoneal comp IMPRESSION: 1. Small postvoid bladder residual of 67.5 mL. 2. No hydronephrosis or nephrolithiasis. Electronically signed by: Quin Lei MD 02/23/2024 07:29 PM EDT
== END 2024-02-18 10:17 | disposition home or self-care (01) ==
LOC: HO.HMGCX 10:16
PROVIDERS: PCP Internal Medicine; Visit Provider Internal Medicine
DX: N20.0 Calculus of kidney (principal)
CPT/HCPCS: 76770

== ENCOUNTER 2024-03-15 08:51 | Outpatient (AMB) | payer BC, SELFPAY ==
[2024-03-15 08:58] VITALS: BP 136/80; PULSE 67; O2SAT 95; BMI 33.3
--- NOTE | 2024-03-15 08:58 | MHC.PC.OV ---
Vital Signs 03/15/24 08:58 Height 5 ft 4 in Weight 194 lb BMI 33.3 BP 136/80 Blood Pressure Location Lt brachial Position Sitting Pulse 67 Pulse Source Pulse Oximeter Pulse Oximetry (%) 95 Oxygen Delivery Method Room Air Intake Visit Reasons: office visit Intake Note: Pt is here today for a follow up visit on labs. Allergies No Known Allergies Allergy (Verified 03/15/24 09:00) Medication List - Last Reconciled 03/15/24 by Naa Avelar MD amlodipine-benazepril 5-20 mg 1 cap PO DAILY aspirin 81 mg PO DAILY atenolol 50 mg PO BID atorvastatin 80 mg PO DAILY estradiol 0.01%(0.1mg/gram) 1 g vaginal 2XW fluticasone furoate-vilanterol 200-25 mcg/dose (Breo Ellipta) 1 inh inhalation DAILY 30 days ibuprofen 600 mg PO Q8H omeprazole 40 mg PO DAILY 90 days sertraline 50 mg PO DAILY Tobacco use date assessed: 02/10/24 Dental Screening Dental Screen Date: 02/06/23 HPI office visit HPI Details Patient presents for the follow-up on hypertension hyperlipidemia chronic anxiety stable on current medications. Dysuria resolved after treatment for UTI and patient has been feeling better. She has not been using Breo for chronic asthma denies any shortness or breath coughing or wheezing [facility] Medical History (Updated 03/15/24 @ 09:51 by Naa Avelar MD) SARS-CoV-2 positive Kidney lesion Gallbladder polyp Abdominal pain Incontinence of urine Anxiety and depression GERD (gastroesophageal reflux disease) Hyperlipidemia HTN (hypertension) Surgical History Hx of hysterectomy History of dilatation and curettage Hx laparoscopic cholecystectomy H/O colonoscopy Family History Father No problems noted. Mother No problems noted. Social History Housing: House Alcohol intake: never Patient Tobacco Use Status: Never used Tobacco e-Cigarette/Vaping Use: Never Used Second Hand Smoke Exposure: No service: No Current occupational status: employed Cognitive needs: No Hearing needs: No Vision needs: Yes Questionnaire Thrive Questionnaire Date Thrive assessed: 02/10/24 CHRISS-7 AMB Questionnaire CHRISS-7 Date CHRISS - 7 assessed: 02/10/24 Source: Developed by DrsCecilio Daily, Carleen Barnett, Alton Hebert and colleagues, with an educational gibran from [employer]. Review of Systems Const All systems reviewed & are unremarkable except as noted in HPI and below Eyes Reports no additional complaints ENT Reports no additional complaints Card Reports no additional complaints Resp Reports no additional complaints GI Reports no additional complaints Reports no additional complaints Physical exam (Primary Care) Vital Signs: Last Vital Signs Pulse 67 03/15/24 08:58 BP 136/80 03/15/24 08:58 Pulse Ox 95 03/15/24 08:58 Oxygen Delivery Method Room Air 03/15/24 08:58 BMI result Body Mass Index 33.3 Tobacco/Smoking Status: Tobacco use Status Tobacco use date assessed 02/10/24 03/15/24 09:01 Patient Tobacco Use Status Never used Tobacco 03/15/24 09:01 Tobacco use type 02/10/24 12:48 e-Cigarette/Vaping Use Never Used 03/15/24 09:01 Thrive Assessment: Date of Thrive Assessment Date Thrive assessed 02/10/24 03/15/24 09:01 Const General: no acute distress HENMT Head: Yes normal to inspection Eyes General: appearance normal, both eyes and all related structures Neck Neck: Yes no lymphadenopathy and Yes supple Resp Effort & Inspection: normal respiratory effort Auscultation: clear to auscultation bilaterally Cardio Rhythm: regular rhythm Heart sounds: S1 normal heart sound present and S2 normal heart sound present Coding Level of Care Code Est Pt Level 4 (74401) Diagnoses Hyperlipidemia, unspecified hyperlipidemia type E78.5 Hyperlipidemia type: unspecified Primary hypertension I10 Hypertension type: primary hypertension Uterine prolapse N81.4 Assessment & Plan Assessment & Plan (1) Hyperlipidemia: Code(s): E78.5 - Hyperlipidemia, unspecified Category: Medical Qualifiers: Hyperlipidemia type: unspecified Qualified Code(s): E78.5 - Hyperlipidemia, unspecified Plan: Low-cholesterol diet and medication compliance discussed with the patient, check lipid profile in 2 months (2) HTN (hypertension): Code(s): I10 - Essential (primary) hypertension Category: Medical Qualifiers: Hypertension type: primary hypertension Qualified Code(s): I10 - Essential (primary) hypertension Plan: Continue current medications follow-up in 6 months (3) Uterine prolapse: Comment: S/P SCP,Ar, TVT Dr. Pruett 06/2023 [facility] Code(s): N81.4 - Uterovaginal prolapse, unspecified Category: Medical Plan: Patient will try estradiol vaginal cream for frequent UTI Orders: Orders Lipid Panel 2 Months E78.5 - Hyperlipidemia, unspecified Medications: Refilled estradiol 0.01%(0.1mg/gram) 1 g vaginal 2XW 42.5 grams 4RF
== END 2024-03-15 09:52 | disposition home or self-care (01) ==
PROVIDERS: PCP Internal Medicine; Visit Provider Internal Medicine
DX: E78.5 Hyperlipidemia, unspecified (principal); I10 Essential (primary) hypertension; N81.4 Uterovaginal prolapse, unspecified

== ENCOUNTER → 2024-03-15 08:51 | Outpatient (BNVA) | payer BC, SELFPAY | PROVIDERS: PCP Internal Medicine; Visit Provider Internal Medicine ==

== ENCOUNTER 2024-04-27 12:33 | Emergency (ER) | payer BC, SELFPAY ==
--- NOTE | ~2024-04-27 | XR_ITS ---
EXAMINATION: XR CHEST 2 VIEW CLINICAL INFORMATION: Shortness of breath COMPARISON: 01/22/2023 TECHNIQUE: PA and lateral views of the chest obtained. FINDINGS: Several bilateral calcified upper lobe granulomata are stable. The lungs are otherwise clear. There are no pleural effusions. The cardiomediastinal silhouette is normal. XR/XR chest 2V IMPRESSION: No acute disease. Electronically signed by: Pawan Galloway MD 04/27/2024 01:40 PM [facility]
--- NOTE | ~2024-04-27 | CT_ITS ---
EXAMINATION: CT ANGIOGRAM CHEST CLINICAL INFORMATION: Chest pain. Shortness of breath. COMPARISON: January 22, 2023. March 21, 2020 TECHNIQUE: Multiple axial images were obtained through the chest after the administration of 65 mL of Omnipaque 350 intravenous contrast. Extensive vascular post-processing including two-dimensional and three-dimensional reformatted images were created and reviewed on an independent workstation. This CT examination was performed using dose optimization techniques as appropriate, variously including the following: *Automated exposure control *Adjustment of mA and/or kV according to patient size (this includes techniques or standardized protocols for targeted exams where dose is matched to indication/reason for exam; i.e. extremities or head) *Use of iterative reconstruction technique DLP: 370 mGy-cm FINDINGS: QUALITY OF STUDY/CONTRAST BOLUS: Satisfactory. PULMONARY ARTERIES: No pulmonary emboli. THORACIC AORTA: No aneurysm. LUNG: There is bilateral upper lobe scarring and calcification similar to prior. The lungs are otherwise clear. PLEURA: No pleural effusion or pneumothorax. MEDIASTINUM: Normal heart size. No pericardial effusion. No hilar or mediastinal lymphadenopathy. No evidence of septal bowing or right heart strain. CORONARY ARTERY CALCIFICATION: None visualized on this study. CHEST WALL/AXILLA: No axillary or internal mammary lymphadenopathy. OSSEOUS STRUCTURES: No acute or suspicious osseous abnormality. UPPER ABDOMEN: Scattered hepatic hypodensities are again seen. There is a small hiatal hernia. No reflux of contrast into the hepatic veins to suggest elevated right heart pressures. CT/CT angio chest PE protocol IMPRESSION: 1. No evidence of pulmonary embolism. 2. Bilateral upper lobe scarring and calcification similar to prior. The lungs are otherwise clear. 3. Scattered hepatic hypodensities are again seen. 4. Small hiatal hernia. Fleischner guidelines were followed. Electronically signed by: Paul Alonso MD 04/28/2024 01:48 AM [facility]
[2024-04-27 12:41] VITALS: BP 171/68; PULSE 76; RESP 18; TEMP 36.1; O2SAT 96; BMI 30.8
--- NOTE | 2024-04-27 12:43 | ED_ITS ---
HPI - General Adult General Chief complaint: General Medical Stated complaint: R/O ACS or PE Time Seen by Provider: 04/27/24 20:16 Source: patient Mode of arrival: ambulatory Limitations: language barrier History of Present Illness ED Provider: Nicolette Wellington NP HPI narrative: patient is a 64-year-old female Who presents emergency department for evaluation. He has been experiencing sore throat, shortness of breath, chest pain on the left, unable to tolerate lying on the left side, elevated blood pressure. Presenting to urgent care earlier this morning for evaluation and referred to emergency department for further workup. Related Data Home Medications ?Medication ?Instructions ?Recorded ?Confirmed aspirin 81 mg tablet,delayed 81 mg PO DAILY 02/10/23 03/15/24 release ibuprofen 600 mg tablet 600 mg PO Q8H 06/26/23 03/15/24 Previous Rx's ?Medication ?Instructions ?Recorded fluticasone furoate 200 1 inh inhalation DAILY 30 days #60 02/10/23 mcg-vilanterol 25 mcg/dose ea inhalation powder (Breo Ellipta) atenolol 50 mg tablet 50 mg PO BID #180 tabs 11/09/23 atorvastatin 80 mg tablet 80 mg PO DAILY #90 tabs 11/09/23 sertraline 50 mg tablet 50 mg PO DAILY #90 tabs 11/09/23 amlodipine 5 mg-benazepril 20 mg 1 cap PO DAILY #90 caps 11/18/23 capsule omeprazole 40 mg capsule,delayed 40 mg PO DAILY 90 days #90 caps 01/09/24 release estradiol 0.01% (0.1 mg/gram) 1 g vaginal 2XW #42.5 grams 03/15/24 vaginal cream Allergies Allergy/AdvReac Type Severity Reaction Status Date / Time No Known Allergies Allergy Verified 04/27/24 12:45 Review of Systems 2 Review of Systems: Yes all other systems are reviewed and are negative PMFSH Past Medical History Attestation statement: The following information was validated with the patient. Source: old records reviewed Medical History SARS-CoV-2 positive Kidney lesion Gallbladder polyp Abdominal pain Incontinence of urine Anxiety and depression GERD (gastroesophageal reflux disease) Hyperlipidemia HTN (hypertension) Surgical History Hx of hysterectomy History of dilatation and curettage Hx laparoscopic cholecystectomy H/O colonoscopy Family History Family History Father No problems noted. Mother No problems noted. Social History Social History Housing: House Alcohol intake: never Patient Tobacco Use Status: Never used Tobacco Smoked in Last 30 Days: No e-Cigarette/Vaping Use: Never Used Second Hand Smoke Exposure: No Use of substances other than those prescribed or required for medical reasons: No Advance Directives: No Advance Directives Information Provided: No service: No Current occupational status: employed Cognitive needs: No Hearing needs: No Vision needs: Yes Physical Exam ED Vital Signs: Vital Signs - 24 hr 04/27/24 12:41 04/27/24 16:36 04/27/24 20:16 Temperature 96.9 F 98.6 F 98.8 F Pulse Rate 76 70 65 Respiratory Rate 18 16 14 Blood Pressure 171/68 H 144/47 H 164/66 H Pulse Oximetry 96 96 97 Oxygen Delivery Method Room Air Room Air Room Air 04/27/24 22:18 04/28/24 01:02 Temperature 97.6 F 99 F Pulse Rate 68 66 Respiratory Rate 16 16 Blood Pressure 126/72 139/66 Pulse Oximetry 96 95 Oxygen Delivery Method Room Air Room Air BMI result Body Mass Index 30.8 Appearance: Alert.?Oriented to person, place and time. No acute distress.?Normal affect. Eyes: Pupils equal, round and reactive to light.? ENT: Pharynx normal.?? Neck: Normal inspection.? Neck supple.?? CVS: Heart sounds normal. Normal heart rate and rhythm.? Pulses normal.?? Respiratory: No respiratory distress.? Lung sounds clear to auscultation bilaterally?? Abdomen: Soft and non-tender. Normoactive bowel sounds. Skin: Skin warm and dry.? Normal skin color.? Extremities: No lower extremity edema.? No calf ttp? Neuro: Moves all extremities spontaneously. Sensation intact bilaterally. CN II- XII intact. No focal neuro deficits. Ambulates with normal steady gait. Course Course Course Narrative: This is a rapid medical exam performed by Yolanda Marina NP: Additional HPI, ROS, PE not included below will be deferred to primary provider. Patient is a 64-year-old [place]guill[place] speaking female presenting with complaint of sore throat, shortness of breath, high BP of 200/88 last night. Went to urgent care this morning and was referred to the ED to rule out PE/ACS. Plan: EKG, labs, CXR, viral and strep swabs Reevaluation(s) Reevaluation #1: CT angio chest without evidence of pulmonary embolism. Atypical chest pain. Stable for discharge home. No respiratory distress. Speaking clear full sentences. No vital sign instability. Outpatient follow-up with PCP. Discussed strict return precautions. Medications Administered Discontinued Medications Generic Name Dose Route Start Last Admin Trade Name Freq PRN Reason Stop Dose Admin Sodium Chloride 1,000 mls @ 999 mls/hr 04/27/24 21:45 04/27/24 22:02 Ns IV 04/27/24 22:45 999 mls/hr .Q1H1M FADY Administration Iohexol 100 ml 04/27/24 22:29 04/27/24 22:29 Iohexol 350 Mg/Ml 100 Ml Infus..Btl IV 04/27/24 22:30 65 ml ONCE ONE Administration Medical Decision Making Medical Decision Making [facility] Narrative: patient is a 64-year-old female with past medical history of anxiety, depression, hyperlipidemia, hypertension presenting to emergency department for evaluation of chest pain, shortness of breath, sore throat as per HPI. Reviewed serum labs obtained prior to my assumption of care; CBC is without leukocytosis anemia or thrombocytopenia. No electrolyte derangement. No ZAIDA. Mildly elevated AST/ ALT 32/40 respectively. Viral serologies are negative. strep a testing is negative , exam is not consistent with RPA/ROCKET TEST FIRE WORKER. Examination is not consistent with RPA ROCKET TEST FIRE WORKER/Robi's angina. High sensitive troponin negative x2 not consistent with ACS, EKG revealing normal sinus rhythm with ventricular rate of 67, QTC 426, no ST elevation, no ST depression. D- dimer was noted to be elevated 465, CT angio of the chest was obtained for evaluation of pulmonary embolism Differential Diagnosis Differential Diagnoses: The differential diagnosis associated with the presentation includes ( See narrative above) Admission/Observation Consideration of admission/observation: Escalation of care including admission/observation considered ( see narrative above) Lab Data [facility] Lab Attestation statement: I reviewed the patient's lab results. ( see narrative above) 04/27/24 13:09 04/27/24 13:09 Labs: Lab Results 04/27/24 04/27/24 Range/Units 13:09 17:45 WBC 9.8 (4.8-10.8) X10*3/uL RBC 4.33 (4.20-5.50) X10*6/uL Hgb 12.7 (12.0-16.0) g/dl Hct 38.5 (37.0-47.0) % MCV 88.9 (80.0-98.0) fL MCH 29.3 (27.0-33.0) pg MCHC 33.0 (31.0-35.0) g/dl RDW 12.5 (11.0-16.0) % Plt Count 255 (160-400) X10*3/uL MPV 9.9 (9.4-12.3) fL Immature Gran % (Auto) 0.2 (0.0-0.4) % Neut % (Auto) 77.9 H (45-73) % Lymph % (Auto) 15.3 L (20-40) % [place]berry % (Auto) 5.7 (2-11) % Eos % (Auto) 0.5 (0-4) % Baso % (Auto) 0.4 (0-2) % Lymph # (Auto) 1.5 (1.2-4.9) X10*3/uL [place] # (Auto) 0.6 (0.1-1.2) X10*3/uL Eos # (Auto) 0.1 (0.0-0.4) X10*3/uL Baso # (Auto) 0.0 (0.0-0.2) X10*3/uL Abs Immat Gran (auto) 0.02 (0.00-0.03) X10*3/uL Absolute Neuts (auto) 7.7 (2.0-8.3) x10*3/uL Absolute Nucleated RBC 0.000 (0.0-0.012) X10*3/uL Nucleated RBC % (auto) 0.0 (0.0-0.2) /100WBC PT 10.7 L (10.9-12.4) SEC INR 0.9 (0.9-1.1) D-Dimer High Sensitivty 465 NG/ML Sodium 139 (135-145) mmol/L Potassium 3.5 (3.3-5.1) mmol/L Chloride 103 (96-108) mmol/L Carbon Dioxide 28 (22-29) mmol/L Anion Gap 12 (12-20) BUN 10 (9-16) mg/dL Creatinine 0.66 (0.5-1.4) mg/dL Estim Creat Clear Calc 92.9 Estimated GFR > 60 Random Glucose 103 (60-115) mg/dL Calcium 9.4 (8.4-10.2) mg/dL Total Bilirubin 0.8 (0.0-1.0) mg/dL AST 32 H (5-31) U/L ALT 40 H (0-31) U/L Alkaline Phosphatase 91 (39-117) U/L Troponin I High Sens 2.7 3.5 (<3.5-17.0) ng/L Total Protein 7.0 (6.5-8.0) g/dL Albumin 4.3 (3.5-5.0) g/dL Influenza Type A (PCR) NEGATIVE (Negative) Influenza Type B (PCR) NEGATIVE (Negative) RSV RNA Qual (PCR) NEGATIVE (Negative) SARS-CoV-2 RNA (RT-PCR) NEGATIVE (Negative) S. pyogenes GrpA CRYSTAL Negative (Negative) Independent Interpretation I performed an independent interpretation of an: EKG ( see narrative above) and Plain X-Ray ( no consolidation or infiltrate on CXR) Radiology Impression Discussion of test interpretation with radiology: I have reviewed the radiologist's reading. Radiologist Impression: XR/XR chest 2V IMPRESSION: No acute disease. CT/CT angio chest PE protocol IMPRESSION: 1. No evidence of pulmonary embolism. 2. Bilateral upper lobe scarring and calcification similar to prior. The lungs are otherwise clear. 3. Scattered hepatic hypodensities are again seen. 4. Small hiatal hernia. Discharge Plan Discharge Clinical Impression: Atypical chest pain Instructions: Chest Pain (ED) Additional Instructions: You can take ibuprofen 200 mg, 3 tablets (600mg) every 6-8 hours as needed for pain, in addition to Tylenol 500 mg, 2 tablets (1,000mg) every 4-6 hours as needed for pain, but not to exceed 3 doses daily (3,000mg).? follow-up with your primary care doctor. Return to emergency department any new or worsening symptoms or concerns. Prescriptions: No Action sertraline 50 mg tablet 50 mg PO DAILY Qty: 90 3RF atorvastatin 80 mg tablet 80 mg PO DAILY Qty: 90 3RF atenolol 50 mg tablet 50 mg PO BID Qty: 180 3RF amlodipine-benazepril 5-20 mg capsule 1 cap PO DAILY Qty: 90 3RF ibuprofen 600 mg tablet 600 mg PO Q8H aspirin 81 mg tablet,delayed release (DR/EC) 81 mg PO DAILY fluticasone furoate-vilanterol [Breo Ellipta] 200-25 mcg/dose blister with device 1 inh inhalation DAILY 30 Days Qty: 60 6RF omeprazole 40 mg capsule,delayed release(DR/EC) 40 mg PO DAILY 90 Days Qty: 90 2RF estradiol 0.01 % (0.1 mg/gram) cream 1 g vaginal 2XW Qty: 42.5 4RF Referrals: Naa Avelar MD [Primary Care Provider] - Print Language: Anguillan
--- NOTE | 2024-04-27 12:44 | ECG_ITS ---
Test Reason : CHEST PAIN Blood Pressure : / mmHG Vent. Rate : 067 BPM Atrial Rate : 067 BPM P-R Int : 186 ms QRS Dur : 078 ms QT Int : 404 ms P-R-T Axes : 054 032 042 degrees QTc Int : 426 ms Normal sinus rhythm Normal ECG When compared with ECG of 22-JAN-2023 17:23, Nonspecific T wave abnormality now evident in Anterior leads Referred By: Aurora Marina Electronically Signed By:ADITYA ASHBY
[2024-04-27 13:13] LABS: MANUAL DIFF FLAG NO
[2024-04-27 13:17] LABS: Basophils Percent Auto 0.4 % (0-2); Eosinophils Absolute Auto 0.1 X10*3/uL (0.0-0.4); Eosinophils Percent Auto 0.5 % (0-4); Hematocrit 38.5 % (37.0-47.0); Hemoglobin 12.7 g/dl (12.0-16.0); Imm Gran Abs Auto 0.02 X10*3/uL (0.00-0.03); Imm Gran Pct Auto 0.2 % (0.0-0.4); Lymphocytes Absolute Auto 1.5 X10*3/uL (1.2-4.9); Lymphocytes Percent Auto 15.3 % (20-40); Mean Corpuscular Hemoglobin 29.3 pg (27.0-33.0); Mean Corpuscular Volume 88.9 fL (80.0-98.0); Mean Platelet Volume 9.9 fL (9.4-12.3); Monocytes Absolute Auto 0.6 X10*3/uL (0.1-1.2); Monocytes Percent Auto 5.7 % (2-11); Neutrophils Absolute Auto 7.7 x10*3/uL (2.0-8.3); Neutrophils Percent Auto 77.9 % (45-73); Platelet Count 255 X10*3/uL (160-400); Red Blood Count 4.33 X10*6/uL (4.20-5.50); Red Cell Distribution Width 12.5 % (11.0-16.0); White Blood Count 9.8 X10*3/uL (4.8-10.8)
[2024-04-27 13:21] LABS: INTERNATIONAL NORM RATIO 0.9 (0.9-1.1); Prothrombin Time 10.7 SEC (10.9-12.4)
[2024-04-27 13:29] LABS: IDNOW Serial# 08D9AD1C; Strep A Nucleic Acid Negative (Negative)
[2024-04-27 13:41] LABS: Alanine Aminotransferase 40 U/L (0-31); Albumin Level 4.3 g/dL (3.5-5.0); Alkaline Phosphatase 91 U/L (39-117); Anion Gap 12 (12-20); Aspartate Amino Transferase 32 U/L (5-31); Bilirubin Total 0.8 mg/dL (0.0-1.0); Blood Urea Nitrogen 10 mg/dL (9-16); Calcium 9.4 mg/dL (8.4-10.2); Carbon Dioxide 28 mmol/L (22-29); Chloride 103 mmol/L (96-108); Creatinine Clr Calc Pharmacy 92.9; Estimated Glomerular Filt Rate > 60; Glucose Random 103 mg/dL (60-115); Potassium 3.5 mmol/L (3.3-5.1); Sodium 139 mmol/L (135-145)
[2024-04-27 13:45] LABS: Troponin-I High Sensitivity 2.7 ng/L (<3.5-17.0)
[2024-04-27 13:53] LABS: Influenza A PCR NEGATIVE (Negative); Influenza B PCR NEGATIVE (Negative); Resp Syncy Virus RNA Qual PCR NEGATIVE (Negative); SARS COV2 PCR INHOUSE NEGATIVE (Negative)
[2024-04-27 16:36] VITALS: BP 144/47; PULSE 70; RESP 16; TEMP 37; O2SAT 96
[2024-04-27 18:20] LABS: Troponin-I High Sensitivity 3.5 ng/L (<3.5-17.0)
[2024-04-27 20:16] VITALS: BP 164/66; PULSE 65; RESP 14; TEMP 37.1; O2SAT 97
[2024-04-27 21:27] LABS: D Dimer High Sensitivity 465 NG/ML
[2024-04-27] MEDS: 0.9 % Sodium Chloride 1,000 ML 999 ML IV (22:02)
[2024-04-27 22:18] VITALS: BP 126/72; PULSE 68; RESP 16; TEMP 36.4; O2SAT 96
[2024-04-27] MEDS: iohexoL 350 MG/ML 100 ML INFUS..BTL IV (22:29)
[2024-04-28 01:02] VITALS: BP 139/66; PULSE 66; RESP 16; TEMP 37.2; O2SAT 95
--- NOTE | 2024-04-28 01:50 | PC.NURSE ---
Awaiting CT Scan results.
[2024-04-28 02:11] VITALS: BP 139/61; PULSE 65; RESP 16; TEMP 37.1; O2SAT 98
--- NOTE | 2024-04-28 02:12 | PC.NURSE ---
SHWETA Albin into discuss ct results and labs, reviewed discharge instructions with pt. pt verbalized understanding, no sign of distress.
== END 2024-04-28 02:13 | disposition home or self-care (01) ==
PROVIDERS: Nurse Practitioner Family; Registered Nurse Emergency; Emergency Provider Emergency Medicine; PCP Internal Medicine
DX: J02.9 Acute pharyngitis, unspecified (principal); R07.89 Other chest pain; R06.02 Shortness of breath; Z03.818 Encounter for observation for suspected exposure to other biological agents ruled out; Z79.899 Other long term (current) drug therapy
CPT/HCPCS: 0241U; 36415; 71046; 71275; 80053; 84484; 85025; 85379; 85610; 87651; 93005; 99284; 99285; Q9967

== ENCOUNTER → 2024-04-27 12:44 | Outpatient (BNV) | payer BC, SELFPAY | PROVIDERS: PCP Internal Medicine; Visit Provider Internal Medicine | DX: R07.9 Chest pain, unspecified (principal) | CPT/HCPCS: 93010 ==

== ENCOUNTER 2024-05-04 09:23 | Outpatient (REF) | payer BC, SELFPAY ==
--- NOTE | ~2024-05-04 | MM_ITS ---
EXAMINATION: MM SCREENING DIGITAL BREAST TOMOSYNTHESIS, BILATERAL CLINICAL INFORMATION: Screening. Asymptomatic. COMPARISON: Mammography: Comparison is made with available priors TECHNIQUE: Digital breast mammography with tomosynthesis is performed in both the craniocaudal and mediolateral oblique views along with computer-aided detection (CAD). FINDINGS: There are scattered areas of fibroglandular density (ACR BI-RADS breast composition Category b). There are no significant masses, abnormal calcifications, or other abnormalities. MM/MM tomosynthesis screening BI IMPRESSION: No mammographic evidence of malignancy. ASSESSMENT: BI-RADS BI-RADS 1 - Negative RECOMMENDATION: Routine annual mammography screening. 1 year F/U This examination should not preclude the clinical evaluation of a suspicious palpable abnormality. This patient's information was entered into a reminder system with a target due date for their next mammogram. Electronically signed by: Laureen Neal DO 05/10/2024 02:11 PM [facility]
== END 2024-05-04 09:24 | disposition home or self-care (01) ==
LOC: HO.MAMMO 09:23
PROVIDERS: PCP Internal Medicine; Visit Provider Internal Medicine
DX: Z12.31 Encounter for screening mammogram for malignant neoplasm of breast (principal)
CPT/HCPCS: 77063; 77067

== ENCOUNTER → 2024-05-04 09:30 | Outpatient (BNV) | payer BC, SELFPAY | PROVIDERS: PCP Internal Medicine; Visit Provider Internal Medicine | DX: Z12.31 Encounter for screening mammogram for malignant neoplasm of breast (principal) | CPT/HCPCS: 77063; 77067 ==

== ENCOUNTER 2024-07-12 09:22 | Outpatient (AMB) | payer BC, SELFPAY ==
--- NOTE | 2024-07-12 09:24 | MHC.OFFVIS ---
Vital Signs 07/12/24 09:25 Height 5 ft 4 in Weight 194 lb 0.108 oz BMI 33.3 BP 140/76 H Blood Pressure Location Rt brachial Position Sitting Pulse 72 Pulse Source Pulse Oximeter Pulse Oximetry (%) 96 Oxygen Delivery Method Room Air Intake Visit Reasons: 6 month follow up Intake Note: ESTABLISHED PATIENT for Dysphagia mgmt. Chief Complaint; Pt reports that PPI is still effective and reflux is well controlled. No other GI notes or concerns per pt. 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 Avoid dietary triggers and late night snacking. Patient will be sent for CT scan of the head reports that she hit her head few days ago. Patient reports to be feeling foggy, worries that something might be wrong. Normal neuro exam. CT of the neck as patient continues to have trouble swallowing. Patient will follow-up in 6 months, sooner on as needed basis. She is agreeable to this plan and verbalizes understanding of instructions. She was given the opportunity to ask questions and all questions answered. ? Thank you for allowing me to participate in her care Orders Orders CT head/brain wo IV con 01/09/[address] soft tissue neck wo IV con 01/09/24 R13.19 Medications Refilled omeprazole 40 mg PO DAILY 90 caps 2RF 90 days Discontinued polyethylene glycol 3350 Discontinued Reason: Patient no longer taking 17 grams PO DAILY 510 grams 2RF TODAY'S VISIT Patient is here today for follow-up. Patient reports that she has been doing significantly better since last visit. Patient is avoiding dietary triggers. Patient does admit that occasionally she will eat late at night before bedtime. States that omeprazole has been helpful. Denies dyspepsia, dysphagia or odynophagia. States that acid reflux is controlled for the most part. Patient is moving her bowels without any issues. History of transaminitis. Both ALT and AST elevated in April of 2024 Laboratory Tests 02/11/24 04/27/24 08:25 13:09 AST 23 32 H ALT 34 H 40 H Alkaline Phosphatase 73 91 Patient denies any abdominal pain. Denies melena, hematochezia, unintentional weight loss or ribbon like stools. Last colonoscopy in October of 2017. Normal colonoscopy, no polyps. [facility] Medical History SARS-CoV-2 positive Kidney lesion Gallbladder polyp Abdominal pain Incontinence of urine Anxiety and depression GERD (gastroesophageal reflux disease) Hyperlipidemia HTN (hypertension) Surgical History Hx of hysterectomy History of dilatation and curettage Hx laparoscopic cholecystectomy H/O colonoscopy Family History Father No problems noted. Mother No problems noted. Social History Housing: House Alcohol intake: never Patient Tobacco Use Status: Never used Tobacco e-Cigarette/Vaping Use: Never Used Second Hand Smoke Exposure: No service: No Current occupational status: employed Cognitive needs: No Hearing needs: No Vision needs: Yes Review of Systems Const Details: Reports feeling dizzy, hit head few days ago. Reports headache(s), Denies weight gain and Denies weight loss ENT Reports no additional complaints, Denies dysphagia, Reports headache(s) and Denies odynophagia Card Reports no additional complaints Resp Reports no additional complaints GI Denies abdominal pain, Denies belching, Denies melena, Denies bloating, Denies change in bowel habits, Denies dysphagia, Denies excessive flatus, Denies dyspepsia, Denies heartburn, Denies diarrhea, Denies loose stools, Denies nausea, Denies odynophagia, Denies vomiting and Denies other Reports no additional complaints Musc Reports no additional complaints Neuro Reports no additional complaints and Reports headache(s) Psych Reports no additional complaints Endo Reports no additional complaints Physical Exam Vital Signs: Last Vital Signs Pulse 72 07/12/24 09:25 BP 140/76 H 07/12/24 09:25 Pulse Ox 96 07/12/24 09:25 Oxygen Delivery Method Room Air 07/12/24 09:25 BMI result Body Mass Index 33.3 Const General: healthy appearing and no acute distress Nutritional Appearance: obese Orientation/consciousness: patient oriented x3 Resp Effort & Inspection: normal respiratory effort, able to speak in complete sentences, no tracheal deviation and symmetric chest movement Auscultation: clear to auscultation bilaterally Cardio Rate: regular rate GI Inspection: Yes normal to inspection, No distended and Yes obesity Palpation (GI): Soft to palpation, not firm, nontender and No hepatosplenomegaly present Auscultation: normal bowel sounds General: Yes no CVA tenderness Back/Spine/Pelvis Back: no CVA tenderness Skin General skin exam: elasticity normal, turgor normal and dry skin Neuro General: patient oriented x3 Psych Appearance: grossly normal Mental Status: mental status grossly normal Assessment & Plan Assessment & Plan (1) Dysphagia: Code(s): R13.10 - Dysphagia, unspecified Category: Medical Qualifiers: Dysphagia type: esophageal phase Qualified Code(s): R13.19 - Other dysphagia (2) Elevated LFTs: Code(s): R79.89 - Other specified abnormal findings of blood chemistry Category: Medical (3) GERD (gastroesophageal reflux disease): Code(s): K21.9 - Gastro-esophageal reflux disease without esophagitis Category: Medical Qualifiers: Esophagitis presence: esophagitis presence not specified Qualified Code(s): K21.9 - Gastro-esophageal reflux disease without esophagitis Plan Elevated liver enzymes in April. Will repeat liver enzymes, lipid panel. Patient will be sent for abdominal ultrasound with elastography. Discussed with patient eating food low in fat, low-salt and high-protein. Continue taking omeprazole daily. Patient reports no longer having dysphagia. Avoid eating late at night. Staying upright for minimum 3 hours after meals discussed with her. Patient will follow-up in 3-4 months. She is agreeable to current plan of care and verbalizes understanding of instructions. She was given the opportunity to ask questions and all questions answered. Thank you for allowing me to participate in her care Orders: Orders Liver Panel Today R74.01 - Elevation of levels of liver transaminase levels Lipid Panel Today I25.10 - Atherosclerotic heart disease of [place] coronary artery without angina pectoris US abdomen comp w elastography Today R79.89 - Other specified abnormal findings of blood chemistry Coding Level of Care Code Est Pt Level 3 (82126) Diagnoses Esophageal dysphagia R13.19 Dysphagia type: esophageal phase Elevated LFTs R79.89 Gastroesophageal reflux disease, unspecified whether esophagitis present K21.9 Esophagitis presence: esophagitis presence not specified Time Spent (min) 30 Comment 20 minutes spent with patient and additional 10 minutes spent reviewing her records
[2024-07-12 09:25] VITALS: BP 140/76; PULSE 72; O2SAT 96; BMI 33.3
== END 2024-07-12 09:53 | disposition home or self-care (01) ==
PROVIDERS: PCP Internal Medicine; Visit Provider Nurse Practitioner Family
DX: R13.19 Other dysphagia (principal); R79.89 Other specified abnormal findings of blood chemistry; K21.9 Gastro-esophageal reflux disease without esophagitis
CPT/HCPCS: 99213

== ENCOUNTER → 2024-07-12 09:22 | Outpatient (BNVA) | payer BC, SELFPAY | PROVIDERS: PCP Internal Medicine; Visit Provider Nurse Practitioner Family ==

== ENCOUNTER 2024-07-13 09:35 | Outpatient (AMB) | payer BC, SELFPAY ==
--- NOTE | 2024-07-13 09:38 | MHC.PC.OV ---
Vital Signs 07/13/24 09:39 Height 5 ft 4 in Weight 194 lb BMI 33.3 BP 128/72 Blood Pressure Location Rt brachial Position Sitting Respiration 16 Pulse 68 Pulse Source Pulse Oximeter Temp 98.0 F Temp Source Oral Pulse Oximetry (%) 96 Oxygen Delivery Method Room Air Intake Visit Reasons: Follow up needs referral Intake Note: Pt is here today for a sick visit. Pt c/o skin tag on the L upper eye lid. Pt would like a referral to Dermatology. Allergies No Known Allergies Allergy (Verified 07/13/24 09:43) Medication List - Last Reconciled 07/13/24 by Naa Avelar MD amlodipine-benazepril 5-20 mg 1 cap PO DAILY aspirin 81 mg PO DAILY atenolol 50 mg PO BID atorvastatin 80 mg PO DAILY estradiol 0.01%(0.1mg/gram) 1 g vaginal 2XW fluticasone furoate-vilanterol 200-25 mcg/dose (Breo Ellipta) 1 inh inhalation DAILY 30 days ibuprofen 600 mg PO Q8H omeprazole 40 mg PO DAILY 90 days sertraline 50 mg PO DAILY Tobacco use date assessed: 07/13/24 Fall risk assessment: No Falls in past year Last assessed Fall Risk: 07/13/24 Dental Screening Dental Screen Date: 07/13/24 Did you have a dental visit in the last 12 months?: Yes Did you have a dental problem in the last 6 months where you did not have access to dental care?: No Was dental information given to patient?: Patient has dentist HPI Follow up needs referral HPI Details Patient complains of a skin tag on her left upper lid interfering with her vision and will like to be referred to have it removed. Hypertension hyperlipidemia are controlled on current medications. [facility] Medical History SARS-CoV-2 positive Kidney lesion Gallbladder polyp Abdominal pain Incontinence of urine Anxiety and depression GERD (gastroesophageal reflux disease) Hyperlipidemia HTN (hypertension) Surgical History Hx of hysterectomy History of dilatation and curettage Hx laparoscopic cholecystectomy H/O colonoscopy Family History Father No problems noted. Mother No problems noted. Social History Housing: House Alcohol intake: never Patient Tobacco Use Status: Never used Tobacco e-Cigarette/Vaping Use: Never Used Second Hand Smoke Exposure: No service: No Current occupational status: employed Cognitive needs: No Hearing needs: No Vision needs: Yes Questionnaire PHQ-9 Over the last 2 weeks, how often have you been bothered by any of the following problems? 1. Little interest or pleasure in doing things: not at all 2. Feeling down, depressed, or hopeless: not at all 3. Trouble falling or staying asleep, or sleeping too much: not at all 4. Feeling tired or having little energy: not at all 5. Poor appetite or overeating: not at all 6. Feeling bad about yourself - or that you are a failure or have let yourself or your family down: not at all 7. Trouble concentrating on things, such as reading the newspaper or watching television: not at all 8. Moving or speaking so slowly that other people could have noticed. Or the opposite - being so fidgety or restless that you have been moving around a lot more than usual: not at all 9. Thoughts that you would be better off or of hurting yourself in some way: not at all Total score: 0 Depression Screening Interpretation: Negative Depression Screening Done: Yes 81694 - PHQ-9 Billing: Yes Source: Developed by Drs. Blaine Daily, Carleen Barnett, Alton Hebert and colleagues, with an educational gibran from [employer]. Thrive Questionnaire Date Thrive assessed: 07/13/24 I am a: Patient What is your living situation today?: I have a steady place to live Within the past 12 months, did the food you bought not last and you didn't have the money to get more?: Never true Within the past 12 months, did you worry whether your food would run out before you got money to buy more?: Never true Do you have trouble paying for medicines?: No Do you have trouble getting transportation to medical appointments?: No Do you have trouble paying your heating and electricity bill?: No Do you have trouble taking care of your child, family member or friend?: No Do you have trouble with day-to-day activities such as bathing, preparing meals, shopping, managing finances, etc.?: No Are you currently unemployed and looking for a job?: No Are you interested in more education?: No Please select the resources that you would like help with: None THRIVE Score: 0 AUDIT C Alcohol Use Questionnaire (AUDIT-C) 1. How often do you have a drink containing alcohol?: Never 3. How often do you have six or more drinks on one occasion?: Never Total Score: 0 CHRISS-7 AMB Questionnaire CHRISS-7 Date CHRISS - 7 assessed: 07/13/24 Feeling nervous, anxious, or on edge: 0 = Not at all Not being able to stop or control worryin = Not at all Worrying too much about different things: 0 = Not at all Trouble relaxin = Not at all Being so restless that it is hard to sit still: 0 = Not at all Becoming easily annoyed or irritable: 0 = Not at all Feeling afraid as if something awful might happen: 0 = Not at all Total CHRISS-7 score (0-4 normal; 5-9 mild; 10-14 moderate; 15-21 severe): 0 Source: Developed by Drs. Blaine Daily, Carleen Barnett, Alton Hebert and colleagues, with an educational gibran from [employer]. CHRISS-7 Assessment Billing CHRISS-7 Assessment Tool: CHRISS-7 Assessment 71249 Review of Systems Const All systems reviewed & are unremarkable except as noted in HPI and below Eyes Reports no additional complaints ENT Reports no additional complaints Card Reports no additional complaints Resp Reports no additional complaints GI Reports no additional complaints Reports no additional complaints Physical exam (Primary Care) Vital Signs: Last Vital Signs Temp 98.0 F 07/13/24 09:39 Pulse 68 07/13/24 09:39 Resp 16 07/13/24 09:39 BP 128/72 07/13/24 09:39 Pulse Ox 96 07/13/24 09:39 Oxygen Delivery Method Room Air 07/13/24 09:39 BMI result Body Mass Index 33.3 Tobacco/Smoking Status: Tobacco use Status Tobacco use date assessed 07/13/24 07/13/24 09:46 Patient Tobacco Use Status Never used Tobacco 07/13/24 09:46 Tobacco use type 02/10/24 12:48 e-Cigarette/Vaping Use Never Used 07/13/24 09:39 PHQ-9: PHQ-9 Score PHQ-9: Total score 0 07/13/24 09:46 Depression Screening Interpretation: Negative Thrive Assessment: Date of Thrive Assessment Date Thrive assessed 07/13/24 07/13/24 09:46 Const General: no acute distress HENMT Head: Yes normal to inspection Face and sinus: Yes normal facial exam Eyes Eyelids: Yes eyelid abnormality (Skin tag on left upper lid) Neck Neck: Yes supple Resp Effort & Inspection: normal respiratory effort Auscultation: clear to auscultation bilaterally Cardio Rhythm: regular rhythm Heart sounds: S1 normal heart sound present and S2 normal heart sound present Coding Level of Care Code Est Pt Level 3 (33572) Diagnoses Skin tag L91.8 Hyperlipidemia, unspecified hyperlipidemia type E78.5 Hyperlipidemia type: unspecified Primary hypertension I10 Hypertension type: primary hypertension Additional Codes CHRISS-7 Assessment Billing - CHRISS-7 Assessment Tool: CHRISS-7 Assessment 32161 ([id number]) PHQ-9 - 59124 - PHQ-9 Billing: Yes ([id number]) Assessment & Plan Assessment & Plan (1) Skin tag: Comment: left upper lid Code(s): L91.8 - Other hypertrophic disorders of the skin Category: Medical Plan: Referred to Ophthalmology (2) Hyperlipidemia: Code(s): E78.5 - Hyperlipidemia, unspecified Category: Medical Qualifiers: Hyperlipidemia type: unspecified Qualified Code(s): E78.5 - Hyperlipidemia, unspecified Plan: Continue statin and low-cholesterol diet (3) HTN (hypertension): Code(s): I10 - Essential (primary) hypertension Category: Medical Qualifiers: Hypertension type: primary hypertension Qualified Code(s): I10 - Essential (primary) hypertension Plan: Continue current medications Orders: Referrals Ophthalmology Referral L91.8 - Other hypertrophic disorders of the skin Medications: Refilled estradiol 0.01%(0.1mg/gram) 1 g vaginal 2XW 42.5 grams 4RF estradiol 0.01%(0.1mg/gram) 1 g vaginal 2XW 42.5 grams 4RF sertraline 50 mg PO DAILY 90 tabs 3RF Discontinued fluticasone furoate-vilanterol 200-25 mcg/dose (Breo Ellipta) Discontinued Reason: Doctor's Order 1 inh inhalation DAILY 30 days 60 ea 6RF
[2024-07-13 09:39] VITALS: BP 128/72; PULSE 68; RESP 16; TEMP 36.7; O2SAT 96; BMI 33.3
== END 2024-07-13 10:09 | disposition home or self-care (01) ==
PROVIDERS: PCP Internal Medicine; Visit Provider Internal Medicine
DX: L91.8 Other hypertrophic disorders of the skin (principal); E78.5 Hyperlipidemia, unspecified; I10 Essential (primary) hypertension

== ENCOUNTER 2024-07-13 10:02 | Outpatient (REF) | payer BC, SELFPAY ==
[2024-07-13 13:36] LABS: Alanine Aminotransferase 18 U/L (0-31); Albumin Level 4.4 g/dL (3.5-5.0); Alkaline Phosphatase 79 U/L (39-117); Aspartate Amino Transferase 28 U/L (5-31); Bilirubin Direct 0.2 mg/dL (0.0-0.5); Bilirubin Total 0.7 mg/dL (0.0-1.0); Cholesterol 182 mg/dL (<200); HDL Cholesterol 69 mg/dL (>40); LDL Cholesterol Calculated 95 mg/dL (<100); Total Protein 7.6 g/dL (6.5-8.0); Triglycerides 91 mg/dL (<150)
== END 2024-07-13 10:03 | disposition home or self-care (01) ==
LOC: HO.HMGCLDS 10:02
PROVIDERS: PCP Internal Medicine; Visit Provider Nurse Practitioner Family
DX: L91.8 Other hypertrophic disorders of the skin (principal); E78.5 Hyperlipidemia, unspecified; I10 Essential (primary) hypertension
CPT/HCPCS: 36415; 80061; 80076; 96127

== ENCOUNTER 2024-08-11 08:16 | Outpatient (REF) | payer BC, SELFPAY ==
--- NOTE | ~2024-08-11 | US_ITS ---
EXAMINATION: US ABDOMEN COMPLETE WITH LIVER ELASTOGRAPHY HISTORY: R79.89 - Other specified abnormal findings of blood chemistry TECHNIQUE: Real-time grayscale ultrasound imaging of the abdomen was performed and images were reviewed. COMPARISON: Comparison is made with the prior examination dated 04/20/2021. FINDINGS: Liver: The right lobe of the liver measures 14.2 cm in size. The left lobe of the liver measures 7.9 cm in size. The liver demonstrates mildly increased echotexture, consistent with steatosis. Multiple subcentimeter echogenic foci are noted, consistent with hemangiomas. These measure up to 7 mm in size. No intrahepatic biliary ductal dilatation is identified. There is normal hepatopedal flow in the portal vein. Ultrasound elastography of the liver was performed with 10 separate measurements of the liver parenchyma with the patient in the supine position. Measurements were obtained approximately 2 cm below Ayanna's capsule and perpendicular to the capsule. Images are of satisfactory quality. The median shear wave velocity is 1.33 m/s. The interquartile range/median (IQR/median) is 0.14. Gallbladder and biliary tree: The gallbladder is surgically absent. The common bile duct is normal in caliber measuring 5 mm. Kidneys: The right kidney measures 11.6 cm in length and demonstrates a 1.3 x 1.0 x 1.3 cm cyst, but is otherwise unremarkable. The left kidney measures 12.1 cm in length and is unremarkable. Pancreas: The pancreatic head, neck, and body are unremarkable. The pancreatic tail is obscured by bowel gas. Spleen: The spleen is normal in size and contour, measuring 10.6 cm in length. Abdominal aorta and inferior vena cava: The visualized portions of the abdominal aorta and inferior vena cava are normal in caliber. There is no free fluid in the abdomen. US/US abdomen comp w elastography IMPRESSION: Mild hepatic steatosis. Subcentimeter probable hepatic hemangiomas. The median shear wave velocity in the liver is 1.33 m/s, corresponding to a median liver stiffness of 5.41 kPa. The IQR/median value is 0.14. This is indicative of a quality data set. Findings are indicative of a low elastography value which rules out advanced chronic liver disease in asymptomatic patients. REFERENCE: Society of Radiologists in Ultrasound Liver Stiffness Thresholds (2020): LIVER STIFFNESS THRESHOLDS: *Shear wave velocity less than 1.3 m/s (Liver Stiffness equal or less than 5 kPa): High probability of being normal. *Shear wave velocity less than 1.7 m/s (Liver Stiffness less than 9 kPa): In the absence of other known clinical signs, rules out compensated advanced chronic liver disease. *Shear wave velocity between 1.7-2.1 m/s (Liver Stiffness 9-13 kPa): Suggestive of compensated advanced chronic liver disease but need further test for confirmation. *Shear wave velocity between 2.1-2.4 m/s (Liver Stiffness 13-17 kPa): Rules in compensated advanced chronic liver disease. *Shear wave velocity greater than 2.4 m/s (Liver Stiffness over 17 kPa): Suggestive of clinically significant portal hypertension. QUALITY OF DATA SET: *IQR/Median value equal or less than 0.15 implies a quality data set. *IQR/Median value over 0.15 implies a poor quality data set. SIGNIFICANT CHANGE FROM PRIOR EXAM: Significant change if liver stiffness measurement is 10% or greater from prior exam. OTHER CONSIDERATIONS: The stage of liver fibrosis may be overestimated in the setting of acute hepatitis, liver inflammation, elevated liver function tests, hepatic vascular congestion, obstructive cholestasis, non-fasting state, and infiltrative diseases such as amyloidosis and lymphoma. In some patients with NAFLD, the liver stiffness thresholds for compensated advanced chronic liver disease may be lower. In causes other than viral hepatitis and NAFLD, liver stiffness thresholds are not well established. Electronically signed by: Blaine Roe MD 08/11/2024 09:30 AM EDT
--- OUTSIDE RECORDS SUMMARY | 2024-08-11 08:37 | XMS_ITS ---
Author Organization [facility] Address [address] [place] [address] [address] [place] [address] Care Team Providers Care Lead Generation Representative Name Role Phone Naa Avelar MD Primary Care Provider Gabriela Bowman Unavailable [phone] Results Component Value Reference Range Notes Urinalysis, Complete-[id number] Reviewed date:06/25/2024 08:31:03 AM Interpretation: Performing Lab:[facility] [place], [address] [place] [address], Phone - [phone], Director - Cheyanne Notes/Report: Clinical Information:SRC:UC Clinical Information:SRC:UC Specific [place] 1.027 1.005-1.030 pH 5.5 5.0-7.5 Urine-Color Yellow Yellow Appearance Clear Clear WBC Esterase 1+ Negative Protein Trace Negative/Trace Glucose Negative Negative Ketones Negative Negative Occult Blood Negative Negative Bilirubin Negative Negative Urobilinogen,Semi-Qn 0.2 0.2-1.0 mg/dL Nitrite, Urine Negative Negative Microscopic Examination See below: Micr oscopic was indicated and was performed. WBC 0-5 0 - 5 /hpf RBC 0-2 0 - 2 /hpf Epithelial Cells (non renal) >10 0 - 10 /hpf Casts None seen None seen /lpf Bacteria None seen None seen/Few Urine Culture, Routine-[id number] Reviewed date:06/25/2024 08:29:42 AM Interpretation: Performing Lab:[facility] [place], [address] [facility], [place], Phone - [phone], Director - Cheyanne Notes/Report: Clinical Information:SRC:UC Clinical Information:SRC:UC Urine Culture, Routine Final report Result 1 Mixed urogenital david 10,000-25,000 colony forming units per mL PDF Report Reviewed date:06/25/2024 08:29:30 AM Interpretation: Performing Lab:[facility] [place], [address], [place], Phone - [phone], Director - Cheyanne Notes/Report: Clinical Information:SRC:UC REASON FOR VISIT Annual ROOF PANEL HANGER Physical, Annual ROOF PANEL HANGER Physical 60-85+ Medications Medication SIG (Take, Route, Frequency, Duration) Notes Start Date End Date Status Nitrofurantoin Monohyd Macro 100 MG Oral for 5 Days Not-Taking Omeprazole 20 MG Oral for 30 A ctive Macrobid 100 MG 1 capsule with food Orally after intercourse (no more than 2 capsules daily) 02/16/2024 Not-Takin g amLODIPine Besy-Benazepril HCl 5-20 MG Oral for 30 Days Active Ibuprofen 600 MG Oral for 10 Days Not-Taking amLODIPine Besy-Benazepril HCl 5-20 MG TAKE 1 CAPSULE BY MOUTH DAILY Oral for 30 Active Atenolol 50 MG TAKE 1 TABLET BY DEVAN TH TWICE DAILY Oral for 30 Active Atorvastatin Calcium 80 MG TAKE 1 TABLET BY MOUTH DAILY Oral for 30 Active Sertraline HCl 50 MG TAKE 1 TABLET BY MO UTH DAILY Oral for 30 Active Social History Tobacco Use: Social History Observation Description Date Details (start date - stop date) Never Smoker NA - NA Tobacco Use/Smoking Question Answer Notes Are you a nonsmoker Sexual History Question Answer Notes Had sex in the past 12 months (vaginal, oral, or anal)? Yes with Men only Prevention strategies discussed: Other Vital Signs Temperature 97.3 degrees Fahrenheit 06/14/19 25 Blood pressure systolic 142 mm Hg 06/14/19 25 Blood pressure diastolic 80 mm Hg 025 Heart Rate 74 /min 06/14/2024 Height 63 in 06/14/2024 Weight 192.6 lbs 06/14/2024 BMI 34.11 kg/m2 06/14/2024 Encounters Encounter Location Date Provider Diagnosis [address] [place] [address] 06/14/2024 Gabriela Red Encounter for gynecological examination (general) (routine) without abnormal findings Z01.419 ; Encounter for screening mammogram for malignant neoplasm of breast Z12.31 ; Encounter for screening for osteoporosis Z13.820 ; Dysuria R30.0 and Poor urinary stream R39.12 Assessments Encounter Date Diagnosis (ICD Code) Assessment Notes Treatment Notes Treatment Clinical Notes Section Notes 06/14/2024 Encounter for gynecological examination (general) (routine) without abnormal findings (ICD-10 - Z01.419) NO MORE PAP TESTS. 06/14/2024 Encounter for screening mammogram for malignant neoplasm of breast (ICD-10 - Z12.31) REGULAR MAMMOGRAMS AND SBE'S WERE RECOMMENDED. 06/14/2024 Encounter for screening for osteoporosis (ICD-10 - Z13.820) BONE DENSITY WAS ORDERED. 06/14/2024 Dysuria (ICD-10 - R30.0) OFFICIAL UA AND URINE C/S 06/14/2024 Poor urinary stream (ICD-10 - R39.12) DISCUSSED SYMPTOMS AND RECOMMENDED SHE BE SEEN BY DR MCFARLANE AGAIN FOR REEVALUATION. POOR URINARY STREAM AND DYSURIA NEED FURTHER INVESTIGATION. URETHRAL OPENING MAY BE TOO TIGHT AND TOO NARROW. Plan Of Treatment Treatment Notes Assessment Notes Encounter for gynecological examination (general) (routine) without abnormal findings NO MORE PAP TESTS. Encounter for screening mamm ogram for malignant neoplasm of breast REGULAR MAMMOGRAMS AND SBE'S WERE RECOMMENDED. Encounter for screening for osteoporosis BONE DENSITY WAS ORDERED. Dysuria OFFICIAL UA AND URIN E C/S Poor urinary stream DISCUSSED SYMPTOMS AND RECOMMENDED SHE BE SEEN BY DR MCFARLANE AGAIN FOR REEVALUATION. POOR URINARY STREAM AND DYSURIA NEED FURTHER INVESTIGATION. URETHRAL OPENING MAY BE TOO TIGHT AND TOO NARROW. Pending Test Test Name Order Date MAMMOGRAM, SCREENING 06/14/2024 Urinalysis 06/14/2024 BONE DENSITY 06/14/2024 MM Digital Mammo Screening 06/14/2024 Next Appt Details Follow Up: 1 Year, Reason: Provider Name:Gabriela colin, 06/20/2025 08:40:00 AM, [address], [address], [place], [address], Progress Notes * JUMANA ARIASB:1960 (64 yo F)Acc No.[id number]:06/14/2024 PROGRESS NOTES Patient:?DIVINA ARIAS Appointment Provider:?Gabriela colin M.D. :1960???Age:64 Y???Sex:Female D ate:06/14/2024 Address:[address] [place] [address], [id number] Pcp:Naa Avelar MD Subjective: * Chief Complaints: * ??? Annual ROOF PANEL HANGER PhysicalAnnua l ROOF PANEL HANGER Physical 60-85+ * HPI: ???New/Follow-up Patient Consult:? S/P VAGINAL HYSTERECTOMY, BSO AND LAPAROSCOPIC SACROCOLPOPEXY, CR REPAIR AND RETROPUBIC SLING SURGERY PERFORMED BY DR MCFARLANE IN JUN 2023.? SHE HAS HAD PELVIC PAINS SINCE HER SURGERY AND WAS SEEN BY DR SOUTH IN FEB 2024.? CT SCAN OF THE PELVIS WAS NORMAL. PAT CONTINUES TO C/O PAINS ALONG THE LOWER ABDOMEN, OFF AND ON, LASTING FROM A FEW MINUTES TO A FEW HOURS.? SHE ALSO HAS NOTED SMALLER URINE FLOW WHERE SHE HAS TO PUSH HARDER TO HAVE FASTER URINARY FLOW.? SHE HAS ALSO NOTED MORE FREQUENT UTI'S. HER LAST MAMMOGRAM DONE IN 2022 SHOWED BREASTS ARE NOT DENSE AND WAS NORMAL. HER LAST PAP TEST IN 2022 WAS NEGATIVE AND HPV NEGATIVE. SHE HAD A COLONOSCOPY DONE IN 2023. SHE HAS NOT HAD A BMD DONE YET.? WE WILL ORDER ONE THIS YEAR. ???Annual:? Patient presents for annual exam, ages 60-85, postmenopausal. ?General Health Maintenance:?Current breast complaints:?no breast pain, mass, discharge, or skin changes ?Urinary problems:?patient reports no urinary health problems or bowel health problems ?Calcium intake:?takes adequate calcium via diet and supplementation ?Significant ROOF PANEL HANGER problems:?no significant home care attendant symptoms or problems * ROS:?general:?no?chest pain.?no?palpitations.?no?headache.?no?cough.?no?shortness of breath.?no?fever.?no?unexplained weight loss.?no?nausea/vomiting.?no?change in bowel movements.?no blood in stool.?no?genitourinary complaints.?no?skin complaints.? * Medical History:? * [employer] History:?/ Para?3/3.?Sexual activity?currently sexually active.?Last Pap Smear:?12/06/22 NIL, NEG HPV, 2020.?Mammogram:?04/2022, 06/05/18, < 50% density.?LMP and menses?[place].?Colonoscopy?10 + years ago.? * OB History:?Total pregnancies?3.?Total living children?3.?NVD?2.?(s)?1.? * Surgical History:?Cholecyste ctomy x 1 Colonoscopy TVH/BSO; sacrocolpopexy, cystocele repair, midurethral sling, cystoscopy 06/2023 * Hospitalization/Major Diagno stic Procedure:?2 Vaginal Deliveries See Surgical Hx * Family History:?Mother: dece ased, Aneurysm.?Father: , Heart Attack.? * Social History:?Tobacco Use:?Tobacco Use/Smoking?Are you a?nonsmoker ???Sexual History:?Sexual History?Had sex in the past 12 months (vaginal, oral, or anal)??Yes ?with?Men only ?Prevention strategies discussed:?Other ?Details of Sexual History?Are you sexually active??Yes ???Drugs/Alcohol:?Drugs?Have you used drugs other than those for medical reasons in the past 12 months??No ???Miscellaneous:?Children: yes, 3. ?Home smoke detector use: yes. ?Living with: spouse. ?Marital status: . ?Natural support system: yes. ?Occupation: Works full-time, [employer]. ?Sexually active: yes. * Medications:?TakingSertralin e HCl 50 MG Tablet TAKE 1 TABLET BY MOUTH DAILY Oral Atorvastatin Calcium 80 MG Tablet TAKE 1 TABLET BY MOUTH DAILY Oral Atenolol 50 MG Tablet TAKE 1 TABLET BY MOUTH TWICE DAILY Oral amLODIPine Besy-Benazepril HCl 5- 20 MG Capsule TAKE 1 CAPSULE BY MOUTH DAILY Oral Omeprazole 20 MG Capsule Delayed Release Oral amLODIPine Besy-Benazepril HCl 5-20 MG Capsule Oral Taking Sertraline HCl 50 MG Tablet TAKE 1 TABLET BY MOUTH DAILY Oral Taking Atorvastatin Calcium 80 MG Tablet TAKE 1 TABLET BY MOUTH DAILY Oral Taking Atenolol 50 MG Tablet TAKE 1 TABLET BY MOUTH TWICE DAILY Oral Taking amLODIPine Besy-Benazepril HCl 5-20 MG Capsule TAKE 1 CAPSULE BY MOUTH DAILY Oral Taking Omeprazole 20 MG Capsule Delayed Release Oral Taking amLODIPine Besy-Benazepril HCl 5-20 MG Capsule Oral Not-TakingNitrofurantoin Monohyd Macro 100 MG Capsule Oral Ibuprofen 600 MG Tablet Oral Macrobid 100 MG Capsule 1 capsule with food Orally after intercourse (no more than 2 capsules daily) Medication List reviewed and reconciled with the patientNot-Taking Nitrofurantoin Monohyd Macro 100 MG Capsule Oral Not-Taking Ibuprofen 600 MG Tablet Oral Not-Taking Macrobid 100 MG Capsule 1 capsule with food Orally after intercourse (no more than 2 capsules daily) Medication List reviewed and reconciled with the patient Objective: * Vitals:?Ht: 63 in, Wt: 192.6 lbs, BMI:34.11Index, BP: 142/80 mm Hg, HR: 74 /min, Temp: 97.3 F. * Examination: ???General Exam: ?CONSTITUTIONAL:?General Appearance:?alert, in no acute distress, normal, well nourished ?NECK/THYROID:?Inspection/Palpation:?normal ?Thyroid:?normal size and shape ?RESPIRATORY:?Auscultation: clear to auscultation bilaterally, Respiratory Effort: normal.?CARDIOVASCULAR:?Auscultation: regular rate and rhythm.?BREAST, Right:?Inspection/Palpation:?no discharge, no masses present, no nipple retraction, no skin changes, no skin dimpling, no tenderness, no lymphadenopathy, no axillary mass, no axillary tenderness ?BREAST, Left:?Inspection/Palpation:?no discharge, no masses present, no nipple retraction, no skin changes, no skin dimpling, no tenderness, no lymphadenopathy, no axillary mass, no axillary tenderness ?GASTROINTESTINAL:?Abdomen:?no masses, nontender, nondistended ?Liver and Spleen:?normal ?Hernias:?no hernias present, no inguinal adenopathy ?MUSCULOSKELETAL:?Inspection/Palpation:?no clubbing, cyanosis, or edema ?SKIN:?Skin:?normal ?NEURO/PSYCH:?Orientation:?time , place, person ?Mood/Affect:?normal?Genitourinary: ?EXTERNAL GENITALIA:?External Genitalia:?normal, no lesions ?VAGINA:?Vagina:?normal appearance, no abnormal discharge, no lesions ?BLADDER:?Bladder:?no mass, nontender ?URETHRA:?Urethra:?no erythema or lesions present ?CERVIX:?Cervix:?surgically absent ?UTERUS:?Uterus:?surgically absent ?ADNEXA:?Adnexa:?surgically absent ?ANUS AND PERINEUM:?Anus/Perineum:?visually normal??? Assessment: * Assessment: 1.?Encounter for gynecologic al examination (general) (routine) without abnormal findings - Z01.419???2.?Encounter for screening mammogram for malignant neoplasm of breast - Z12.31???3.?Encounter for screening for osteoporosis - Z13.820???4.?Dysuria - R30.0???5.?Poor urinary stream - R39.12??? Plan: * Treatment: Notes: NO MORE PAP TESTS.??2.?Encounter for screening mammogram for malignant neoplasm of breast?Imaging: MM Digital Mammo Screening Notes: REGULAR MAMMOGRAMS AND SBE'S WERE RECOMMENDED.??3.?Encounter for screening for osteoporosis?Imaging: BONE DENSITY* SCREENING BONE DENSITY AND P ATIENT IS POST MENOPAUSAL Z78.0 Notes: BONE DENSITY WAS ORDERED.??4.?Dysuria?LAB: Urinalysis, Complete-[id number] ?LAB: Urine Culture, Routine-[id number] Notes: OFFICIAL UA AND URINE C/S??5.?Poor urinary stream? Notes: DISCUSSED SYMPTOMS AND RECOMMENDED SHE BE SEEN BY DR MCFARLANE AGAIN FOR REEVALUATION. POOR URINARY STREAM AND DYSURIA NEED FURTHER INVESTIGATION. URETHRAL OPENING MAY BE TOO TIGHT AND TOO NARROW.?? * Imaging:? * ?Imaging: MAMMOGRAM, SCR EENING * Procedure Codes:? * Preventive Medicine:? ??YOUR PREVENTIVE WELLNESS PLAN:?Osteoporosis prevention?Calcium, D, strength training.?Breast Cancer Screening (Mammogram):?annually.?Cervical Cancer Screening (Pap Smear):?q 3 years with HPV screen.?Colorectal Cancer Screening:?q 10 years.? * Follow Up:?1 Year * Images: Billing Information: * Visit Code:? 61694 Preventive Care Est Pt. Age 65 and over. * Procedure Codes:? * Sign off status: Completed Addendum: * ? true * Appointment Provider:?Gabriela Red M.D. Date:?06/14/2024 Generated for Hollie baeza/Beverly/eTransmitting on:?08/11/2024 08:36 AM EDT History and Physical Notes * HPI (History of Present Illness) Category Sub-Category Detail Notes Category Not es New/Follow-up Patient Consult S/P VAGINAL HYSTERECTOMY, BSO AND LAPAROSCOPIC SACROCOLPOPEXY, CR REPAIR AND RETROPUBIC SLING SURGERY PERFORMED BY DR MCFARLANE IN JUN 2023. SHE HAS HAD PELVIC PAINS SINCE HER SURGERY AND WAS SEEN BY DR SOUTH IN FEB 2024. CT SCAN OF THE PELVIS WAS NORMAL. PAT CONTINUES TO C/O PAINS ALONG THE LOWER ABDOMEN, OFF AND ON, LASTING FROM A FEW MINUTES TO A FEW HOURS. SHE ALSO HAS NOTED SMALLER URINE FLOW WHERE SHE HAS TO PUSH HARDER TO HAVE FASTER URINARY FLOW. SHE HAS ALSO NOTED MORE FREQUENT UTI'S. HER LAST MAMMOGRAM DONE IN 2022 SHOWED BREASTS ARE NOT DENSE AND WAS NORMAL. HER LAST PAP TEST IN 2022 WAS NEGATIVE AND HPV NEGATIVE. SHE HAD A COLONOSCOPY DONE IN 2023. SHE HAS NOT HAD A BMD DONE YET. WE WILL ORDER ONE THIS YEAR. Annual General Health Maintenance: Current breast complaints:: no breast pain, mass, discharge, or skin changes Urinary problems:: patient r eports no urinary health problems or bowel health problems Calcium intake:: takes adequ ate calcium via diet and supplementation Significant ROOF PANEL HANGER problems:: n o significant home care attendant symptoms or problems Examination Category Sub-Category Detail Notes Category Not es General Exam CONSTITUTIONAL: General Appearan ce:: alert, in no acute distress, normal, well nourished NECK/THYROID: Thyroid:: normal size and shape Inspection/Palpation:: normal RESPIRATORY: Auscultation: clear to auscultation bilaterally, Respiratory Effort: normal CARDIOVASCULAR: Auscultation: regula r rate and rhythm GASTROINTESTINAL: Hernias:: no hernias present, no inguinal adenopathy Liver and Spleen:: normal Abdomen:: no masses, nontender, nondiste nded MUSCULOSKELETAL: Inspection/Palpation:: no clubb ing, cyanosis, or edema SKIN: Skin:: normal NEURO/PSYCH: Mood/Affect:: normal Orientation:: time , place, person BREAST, Right: Inspection/Palpation :: no discharge, no masses present, no nipple retraction, no skin changes, no skin dimpling, no tenderness, no lymphadenopathy, no axillary mass, no axillary tenderness BREAST, Left: Inspection/Palpation :: no discharge, no masses present, no nipple retraction, no skin changes, no skin dimpling, no tenderness, no lymphadenopathy, no axillary mass, no axillary tenderness Genitourinary EXTERNAL GENITALIA: External Genitalia:: nor mal, no lesions VAGINA: Vagina:: normal appearance, no a bnormal discharge, no lesions BLADDER: Bladder:: no mass, nontender URETHRA: Urethra:: no erythema or lesions present CERVIX: Cervix:: surgically absent UTERUS: Uterus:: surgically absent ADNEXA: Adnexa:: surgically absent ANUS AND PERINEUM: Anus/Perineum:: visually norm al
--- OUTSIDE RECORDS SUMMARY | 2024-08-11 08:37 | XMS_ITS | Patient Health Record ---
Author Organization [facility] Address [address] [facility] [address] [place] [address] Care Team Providers Care Supervisor Curing Room Name Role Phone Naa Avelar MD Primary Care Provider Jeroa Gabriela Bernardo Unavailable [phone] SOUTH, DANIELE Unavailable [phone] Allergies No Known Allergies Results Component Value Reference Range Notes Urinalysis, Complete-[id number] Reviewed date:06/25/2024 08:31:03 AM Interpretation: Performing Lab:[facility], [address] [place] [address], Phone - [phone], Director - Cheyanne Notes/Report: Clinical Information:SRC:UC Clinical Information:SRC:UC Specific [place] 1.027 1.005-1.030 pH 5.5 5.0-7.5 Urine-Color Yellow [...] Bacteria None seen None seen/Few Urine Culture, Routine-[id number] Reviewed date:06/25/2024 08:29:42 AM Interpretation: Performing Lab:[facility], [address] [facility], [place], Phone - [phone], Director - Cheyanne Notes/Report: Clinical Information:SRC:UC Clinical Information:SRC:UC Urine Culture, Routine Final report Result 1 Mixed urogenital david 10,000-25,000 colony forming units per mL PDF Report Reviewed date:06/25/2024 08:29:30 AM Interpretation: Performing Lab:[facility], [address], [place], Phone - [phone], Director - Cheyanne Notes/Report: Clinical Information:SRC:UC Reason For Referral No Information Medications Medication SIG (Take, Route, Frequency, Duration) Notes Start Date End Date Status Nitrofurantoin Monohyd Macro 100 MG Oral for 5 Days Not-Taking Omeprazole 20 MG Oral for 30 A ctive amLODIPine Besy-Benazepril HCl 5-20 MG TAKE 1 CAPSULE BY MOUTH DAILY Oral for 30 Active Atenolol 50 MG TAKE 1 TABLET BY DEVAN TH TWICE DAILY Oral for 30 Active Atorvastatin Calcium 80 MG TAKE 1 TABLET BY MOUTH DAILY Oral for 30 Active Sertraline HCl 50 MG TAKE 1 TABLET BY MO UTH DAILY Oral for 30 Active Macrobid 100 MG 1 capsule with food Orally after intercourse (no more than 2 capsules daily) 02/16/2024 Not-Takin g amLODIPine Besy-Benazepril HCl 5-20 MG Oral for 30 Days Active Ibuprofen 600 MG Oral for 10 Days Not-Taking Social History Tobacco Use: Social History Observation Description Date Details (start date - stop date) Never Smoker NA - NA Tobacco Use/Smoking Question Answer Notes Are you a nonsmoker Sexual History Question Answer Notes Had sex in the past 12 months (vaginal, oral, or anal)? Yes with Men only Prevention strategies discussed: Other Problems Problem Type SNOMED Code ICD Code Onset Dates Problem Status W/U Status Risk Notes Problem Frequency of micturition (062932468) Frequency of micturition (R35.0) Active confirmed Problem Postmenopausal atrophic vaginitis (17554317) Postmenopausal atrophic vaginitis (N95.2) Active confirmed Problem Herniation of rectum into vagina (673700442) Rectocele (N81.6) Active confirmed Problem Screening for malignant neoplasm of cervix (948322527) Encounter for screening for malignant neoplasm of cervix (Z12.4) Active confirmed Problem Urinary incontinence (563648574) Unspecified urinary incontinence (R32) Active confirmed Problem Essential hypertension (42331329) Essential (primary) hypertension (I10) Active confirmed Problem Disorder of gallbladder (94678788) Disease of gallbladder, unspecified (K82.9) Active confirmed Problem Cystocele (228879156) Cystocele, unspecified (N81.10) Active confirmed Problem Complete uterovaginal prolapse (71648790) Complete uterovaginal prolapse (N81.3) Active confirmed Vital Signs Heart Rate 74 /min 06/14/2024 Temperature 97.3 degrees Fahrenheit 06/14/2024 Blood pressure diastolic 80 mm Hg 06/14/2024 Height 63 in 06/14/2024 Blood pressure systolic 142 mm Hg 06/14/2024 Weight 192.6 lbs 06/14/2024 BMI 34.11 kg/m2 06/14/2024 Encounters Encounter Location Date Provider Diagnosis Total [facility] [employer] [address] [place] [address] 02/16/2024 DANIELE SOUTH Pelvic Pain R10.2 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 The most uncomfortable part of the exam is posteriorly, and to the left. The symptoms are not suggestive of GI cause of pain. She is worried that there is something wrong from surgery. She and her friend are requesting ultrasound - after discussion, they have opted out of the ultasound. They ask if there is anything she could do to stop the cycle of UTI. Discussed postcoital voiding and postcoital antibiotics. Consider pelvic floor therapy. 06/14/2024 Encounter for gynecological examination (general) (routine) [...] MAY BE TOO TIGHT AND TOO NARROW. 02/16/2024 Other 46 minutes were spent on the day of the visit reviewing and prepping the chart, obtaining the HPI, examining the patient, counseling the patient on the diagnosis, ordering/refillin g medications, ordering tests and procedures and documenting this encounter. Plan Of Treatment Pending Test Test Name Order Date MAMMOGRAM, SCREENING 06/14/2024 Urinalysis 06/14/2024 BONE DENSITY 06/14/2024 MM Digital Mammo Screening 06/14/2024 Next Appt Details Provider Name:Gabriela colin, 06/20/2025 08:40:00 AM, [address], [address], [place], [address], Insurance Providers Payer Name Payer Address Payer Phone Subscriber Number Group Number Insured Name Patient Relationship to Insured Coverage Start Date Coverage End Date [employer] [place] [address] [place] [address] [id number] DIVINA ARIAS Self - patient is the insured Medical (General) History Medical History History ICD Code Disease of gallbladder, unspecified K82. 9 Essential (primary) hypertension I10 Complete uterovaginal prolapse N81.3 Cystocele, unspecified N81.10 Rectocele N81.6 Postmenopausal atrophic vaginitis N95.2 Mammographic fibroglandular density, taya ateral breasts R92.323 Surgical History Surgery Date(Month/Year) Cholecystectomy x 1 Colonoscopy TVH/BSO; sacrocolpopexy, cys tocele repair, midurethral sling, cystoscopy 06/2023 Hospitalization History Reason Date(Month/Year) See Surgical Hx 2 Vaginal Deliveries
== END 2024-08-11 08:17 | disposition home or self-care (01) ==
LOC: HO.US 08:16
PROVIDERS: PCP Internal Medicine; Visit Provider Nurse Practitioner Family
DX: R79.89 Other specified abnormal findings of blood chemistry (principal)
CPT/HCPCS: 76700; 76981

== ENCOUNTER → 2024-08-11 08:17 | Outpatient (BNV) | payer BC, SELFPAY | PROVIDERS: PCP Internal Medicine; Visit Provider Radiology Diagnostic Radiology | DX: R79.89 Other specified abnormal findings of blood chemistry (principal) | CPT/HCPCS: 76700 ==

== ENCOUNTER 2024-09-10 09:16 | Outpatient (REF) | payer BC, SELFPAY ==
[2024-09-10 11:07] LABS: Cholesterol 168 mg/dL (<200); HDL Cholesterol 60 mg/dL (>40); LDL Cholesterol Calculated 90 mg/dL (<100); Triglycerides 94 mg/dL (<150)
== END 2024-09-10 09:17 | disposition home or self-care (01) ==
LOC: HO.HMGCLDS 09:16
PROVIDERS: PCP Internal Medicine; Visit Provider Internal Medicine
DX: E78.5 Hyperlipidemia, unspecified (principal)
CPT/HCPCS: 36415; 80061

== ENCOUNTER 2024-09-14 08:37 | Outpatient (REF) | payer BC, SELFPAY ==
--- NOTE | ~2024-09-14 | XR_ITS ---
EXAMINATION: XR KNEE, LEFT CLINICAL INFORMATION: M25.562 - Pain in left knee COMPARISON: None available. TECHNIQUE: Two views of the left knee. FINDINGS: No fracture, dislocation or suspicious bone lesion. Normal bone mineralization. Normal alignment. Mild medial compartment narrowing with minimal marginal osteophytic spurs. Minimal arthritis also noted in the patellofemoral compartment. The lateral compartment appears normal. Mild spurring of the tibial spines. There is no significant joint effusion. There is no soft tissue abnormality. XR/XR knee LT 2V IMPRESSION: 1. No acute bony abnormalities. 2. Mild medial and patellofemoral compartment osteoarthritis. Electronically signed by: Henry Carrillo MD 09/15/2024 09:29 AM EDT
== END 2024-09-14 08:38 | disposition home or self-care (01) ==
LOC: HO.HMGCX 08:37
PROVIDERS: PCP Internal Medicine; Visit Provider Internal Medicine
DX: M25.562 Pain in left knee (principal)
CPT/HCPCS: 73560

== ENCOUNTER 2024-09-14 08:37 | Outpatient (AMB) | payer BC, SELFPAY ==
[2024-09-14 08:39] VITALS: BP 132/78; PULSE 71; RESP 18; O2SAT 96; BMI 32.8
--- NOTE | 2024-09-14 08:39 | MHC.PC.OV ---
Vital Signs 09/14/24 08:39 Height 5 ft 4 in Weight 191 lb BMI 32.8 BP 132/78 Blood Pressure Location Lt brachial Position Sitting Respiration 18 Pulse 71 Pulse Source Pulse Oximeter Pulse Oximetry (%) 96 Oxygen Delivery Method Room Air Intake Visit Reasons: 6m follow up Intake Note: Pt is here today for 6 months follow up visit. Pt states that she has been having L knee pain. Allergies No Known Allergies Allergy (Verified 09/14/24 08:43) Medication List - Last Reconciled 09/14/24 by Naa Avelar MD amlodipine-benazepril 5-20 mg 1 cap PO DAILY aspirin 81 mg PO DAILY atenolol 50 mg PO BID atorvastatin 80 mg PO DAILY estradiol 0.01%(0.1mg/gram) 1 g vaginal 2XW ibuprofen 600 mg PO Q8H omeprazole 40 mg PO DAILY 90 days prednisone 20 mg PO BID sertraline 50 mg PO DAILY Tobacco use date assessed: 09/14/24 Fall risk assessment: No Falls in past year Last assessed Fall Risk: 09/14/24 Dental Screening Dental Screen Date: 07/13/24 HPI 6m follow up HPI Details Pt presents for f/u HTN and hyperlipid. Pt c/o L knee pain for 2 weeks worse when walking. Patient denies knee injury pain at rest joint swelling or erythema PFSH Medical History (Updated 09/14/24 @ 09:17 by Naa Avelar MD) Kidney lesion Gallbladder polyp Abdominal pain Incontinence of urine Anxiety and depression GERD (gastroesophageal reflux disease) Hyperlipidemia HTN (hypertension) Surgical History Hx of hysterectomy History of dilatation and curettage Hx laparoscopic cholecystectomy H/O colonoscopy Family History Father No problems noted. Mother No problems noted. Social History Housing: House Alcohol intake: never Patient Tobacco Use Status: Never used Tobacco e-Cigarette/Vaping Use: Never Used Second Hand Smoke Exposure: No service: No Current occupational status: employed Cognitive needs: No Hearing needs: No Vision needs: Yes Questionnaire Thrive Questionnaire Date Thrive assessed: 07/13/24 CHRISS-7 AMB Questionnaire CHRISS-7 Date CHRISS - 7 assessed: 07/13/24 Source: Developed by Drs. Blaine Daily, Carleen Barnett, Alton Hebert and colleagues, with an educational gibran from [employer]. Review of Systems Const All systems reviewed & are unremarkable except as noted in HPI and below Eyes Reports no additional complaints ENT Reports no additional complaints Card Reports no additional complaints Resp Reports no additional complaints Reports no additional complaints Physical exam (Primary Care) Vital Signs: Last Vital Signs Pulse 71 09/14/24 08:39 Resp 18 09/14/24 08:39 BP 132/78 09/14/24 08:39 Pulse Ox 96 09/14/24 08:39 Oxygen Delivery Method Room Air 09/14/24 08:39 BMI result Body Mass Index 32.8 Tobacco/Smoking Status: Tobacco use Status Tobacco use date assessed 09/14/24 09/14/24 08:46 Patient Tobacco Use Status Never used Tobacco 09/14/24 08:46 Tobacco use type 02/10/24 12:48 e-Cigarette/Vaping Use Never Used 09/14/24 08:44 Thrive Assessment: Date of Thrive Assessment Date Thrive assessed 07/13/24 09/14/24 08:44 Const General: no acute distress HENMT Head: Yes normal to inspection Throat: Yes posterior oropharynx normal Neck Neck: Yes supple Resp Effort & Inspection: normal respiratory effort Auscultation: clear to auscultation bilaterally Cardio Rhythm: regular rhythm Heart sounds: S1 normal heart sound present and S2 normal heart sound present GI Inspection: Yes normal to inspection Palpation (GI): Soft to palpation Extrem Other: There is a slightly decreased range of motion in the left knee medial aspect tenderness no soft tissue swelling erythema or warmth General: Yes no clubbing, cyanosis or edema Coding Level of Care Code Est Pt Level 4 (99467) Diagnoses Knee pain, left M25.562 Primary hypertension I10 Hypertension type: primary hypertension Hyperlipidemia, unspecified hyperlipidemia type E78.5 Hyperlipidemia type: unspecified Gastroesophageal reflux disease, unspecified whether esophagitis present K21.9 Esophagitis presence: esophagitis presence not specified Assessment & Plan Assessment & Plan (1) Knee pain, left: Code(s): M25.562 - Pain in left knee Category: Medical Plan: Check x-ray of left knee, prednisone 40 mg daily for 5 days is prescribed and patient is referred to physical therapy (2) HTN (hypertension): Code(s): I10 - Essential (primary) hypertension Category: Medical Qualifiers: Hypertension type: primary hypertension Qualified Code(s): I10 - Essential (primary) hypertension Plan: Continue current medications (3) Hyperlipidemia: Code(s): E78.5 - Hyperlipidemia, unspecified Category: Medical Qualifiers: Hyperlipidemia type: unspecified Qualified Code(s): E78.5 - Hyperlipidemia, unspecified Plan: Continue statin (4) GERD (gastroesophageal reflux disease): Comment: EGD 06/2023 HIATAL HERNIA, GASTRITIS, STATUS POST BALLOON DILATION AT LES AND UES, controlled on PPI Code(s): K21.9 - Gastro-esophageal reflux disease without esophagitis Category: Medical Qualifiers: Esophagitis presence: esophagitis presence not specified Qualified Code(s): K21.9 - Gastro-esophageal reflux disease without esophagitis Plan: Continue PPI physical in 6 months with fasting labs before Orders: Orders TSH reflex Free T4 6 Months E78.5 - Hyperlipidemia, unspecified, I10 - Essential (primary) hypertension Vitamin D 25-OH Total 6 Months E78.5 - Hyperlipidemia, unspecified, I10 - Essential (primary) hypertension XR knee LT 2V Today M25.562 - Pain in left knee PT Evaluation and Treatment Today M25.562 - Pain in left knee Comprehensive Met. Panel 6 Months E78.5 - Hyperlipidemia, unspecified, I10 - Essential (primary) hypertension Lipid Panel 6 Months E78.5 - Hyperlipidemia, unspecified, I10 - Essential (primary) hypertension Complete Blood Count Auto Diff 6 Months E78.5 - Hyperlipidemia, unspecified, I10 - Essential (primary) hypertension Medications: New prednisone 20 mg PO BID 10 tabs 0RF
== END 2024-09-14 09:15 | disposition home or self-care (01) ==
LOC: HO.HMCC 08:37
PROVIDERS: PCP Internal Medicine; Visit Provider Internal Medicine
DX: M25.562 Pain in left knee (principal); I10 Essential (primary) hypertension; E78.5 Hyperlipidemia, unspecified; K21.9 Gastro-esophageal reflux disease without esophagitis

== ENCOUNTER → 2024-09-14 09:20 | Outpatient (BNV) | payer BC, SELFPAY | PROVIDERS: PCP Internal Medicine; Visit Provider Radiology Diagnostic Radiology | DX: M25.562 Pain in left knee (principal) | CPT/HCPCS: 73560 ==

== ENCOUNTER 2024-10-27 08:00 | Outpatient (RCR) | payer BC, SELFPAY ==
--- NOTE | 2024-10-27 08:44 | MHC.PT.DC ---
[facility] [place] Office [place] Office [place] Office [address] Rick Odell [address] [phone] F: [phone] F: [phone] F: [phone] F: [phone] Physical Therapy Discharge Report Diagnosis: L knee pain Date of Surgery: n/a Date of Evaluation: 09/24/24 Date of Discharge: 10/27/24 Treatments to Date: 6 Cancellations to Date: 0 No Shows to Date: 0 Discharge Status: Achieved Goals Improved Function Independent with HEP Discharge Summary: 10/27/2024: Pt continues to have pain on and off at varying severities. Pain is worse at the end of her work day. She does not report pain when she is doing exercises in the clinic. Objectively she has made some progress as outlined above. At this time max benefits of PT have been provided and skilled PT is no longer indicated. She also has an annual hard max for PT visits so we want to be cautious with how many we use at this point as she is capable of performing all exercises at home at this point. I recommend she continues with these exercises and follows up with MD as needed. She is in agreement with plan. Electronically signed by: Iris Oconnor, PT, DPT, ATC Please sign and return to therapist. Thank you for your referral.
== END 2024-10-27 08:45 | disposition home or self-care (01) ==
LOC: HO.PTCHIC 08:00
PROVIDERS: PCP Internal Medicine; Visit Provider Internal Medicine
DX: M25.562 Pain in left knee (principal)
CPT/HCPCS: 97110; 97161

== ENCOUNTER 2025-01-10 07:46 | Outpatient (AMB) | payer BC, SELFPAY ==
--- OUTSIDE RECORDS SUMMARY | 2025-01-10 07:49 | XMS_ITS | Clinical Summary ---
Author Organization [facility] Address [address] [facility] [address] [place] [phone] Phone Care Team Providers Care Workers Compensation Adjuster Name Role Phone Naa Avelar MD Primary Care Provider [phone] Allergies No known active allergies Medications atenolol (TENORMIN) 50 mg tablet Take 50 mg by mouth 2 (two) times a day. 04/21/2021 Active atorvastatin (LIPITOR) 80 MG tablet Take 80 mg by mouth daily. 04/21/2021 Active meloxicam (MOBIC) 15 MG tablet Take 15 mg by mouth daily. 03/06/2021 Active omeprazole (PRILOSEC) 20 MG capsule Take 20 mg by mouth daily. 04/21/2021 Active benzonatate (TESSALON) 100 MG capsule Take 1 capsule (100 mg total) by mouth 3 (three) times a day as needed for cough. 20 capsule 04/24/2022 Active Active Problems No known active problems Social History Tobacco Use Types Packs/Day Years Used Date Smoking Tobacco: Never Smokeless Tobacco: Never Tobacco Cessation:Counseling Given: Not Answered Education Answer Date Recorded Are you interested in more education? Not on savanna e 09/28/2022 Are you concerned about learning? Not on file 09/28/2022 No 09/28/2022 No 09/28/2022 Digital Access Answer Date Recorded No 10/27/2022 No 10/27/2022 Reliable internet access at home? Not on file 10/27/2022 Device with a working camera? Not on file Comments Unknown Sex and Gender Information Value Date Recorded Sex Assigned at Not on file Legal Sex Female 9:32 AM EST Gender Identity Not on file Sexual Orientation Not on file Last Filed Vital Signs Vital Sign Reading Time Taken Comments Blood Pressure 184/80 04/24/2022 12:30 PM EST Pulse 82 04/24/2022 12:30 PM EST Temperature 37.7 C (99.8 F) 04/24/2022 12:30 PM EST Respiratory Rate 18 04/24/2022 12:30 PM EST Oxygen Saturation 97% 04/24/2022 12:30 PM EST Inhaled Oxygen Concentration - - Weight - - Height - - Body Mass Index - - Plan of Treatment Health Maintenance Due Date Last Done Comments Adult Td,Tdap Booster 1958 LIPID PANEL 1958 DEPRESSION SCREENING 1970 HEPATITIS C SCREENING 02/03/1976 MAMMOGRAM 1998 COLOGUARD 2003 COLONOSCOPY 2003 COLORECTAL CANCER SCREENING 2003 FIT TEST 2003 FOBT 2003 SIGMOIDOSCOPY 2003 VIRTUAL COLONOSCOPY 2003 PNEUMOCOCCAL VACCINES (50+ y ears) (1 of 1 - PCV) 02/03/2008 ZOSTER VACCINES (1 of 2) 02/03/2008 OSTEOPOROSIS SCREENING INITI AL (ONE-TIME) 2023 COVID-19 VACCINE ( - 2023-2 5 season) 2024 RSV VACCINE (1 - 1-dose 75+ series) 2033 SMOKING STATUS SCREENING (On ce After 26 Yrs) Completed 04/24/2022 HEPATITIS A VACCINES Aged Out No long er eligible based on patient's age to complete this topic HIB VACCINES Aged Out No longer eligi ble based on patient's age to complete this topic MENINGOCOCCAL VACCINES (ACWY) Aged Out No longer eligible based on patient's age to complete this topic MENINGOCOCCAL VACCINES (B) Aged Out N o longer eligible based on patient's age to complete this topic Medical Devices Not on file Insurance [facility] OUT [facility] PPO BLUE [place] OUT OF STATE PPO BLUE CROSS OUT OF [facility] PPO BLUE CROSS OUT OF [facility] PPO BLUE [place] OUT OF STATE PPO [place] OUT OF STATE PPO [place] OUT OF STATE PPO [facility] OUT OF STATE PPO BLUE [place] OUT OF STATE PPO Care Teams Workers Compensation Adjuster Relationship Specialty Start Date End Date Naa Avelar MD [address] [facility] [place] [address] PCP - General Internal Medicine 04/24/22 Additional Source Comments The information contained in this document represents components of the legal health record. It is not the complete legal health record.[facility]
[2025-01-10 08:06] VITALS: BP 140/72; PULSE 64; O2SAT 97; BMI 31.6
--- NOTE | 2025-01-10 08:06 | MHC.OFFVIS ---
Vital Signs 01/10/25 08:06 Height 5 ft 4 in Weight 184 lb BMI 31.6 BP 140/72 H Blood Pressure Location Rt brachial Position Sitting Pulse 64 Pulse Source Pulse Oximeter Pulse Oximetry (%) 97 Oxygen Delivery Method Room Air Intake Visit Reasons: 6 MO F/U Intake Note: ESTABLISHED PATIENT for Dysphagia mgmt. Labs done. Chief Complaint; Pt denies any GI changes or new sx since last visit. Allergies No Known Allergies Allergy (Verified 09/14/24 08:43) HPI HPI 6 MO F/U: Details: LAST VISIT: Dysphagia Elevated LFTs GERD (gastroesophageal reflux disease) Plan Elevated liver enzymes in April. Will repeat liver enzymes, lipid panel. Patient will be sent for abdominal ultrasound with elastography. Discussed with patient eating food low in fat, low-salt and high-protein. Continue taking omeprazole daily. Patient reports no longer having dysphagia. Avoid eating late at night. Staying upright for minimum 3 hours after meals discussed with her. Patient will follow-up in 3-4 months. She is agreeable to current plan of care and verbalizes understanding of instructions. She was given the opportunity to ask questions and all questions answered. ? Thank you for allowing me to participate in her care Orders Liver Panel Today R74.01 Lipid Panel Today I25.10 US abdomen comp w elastography Today R79.89 TODAY'S VISIT: Patient is here today for follow-up. Patient reports that she has been doing well. Reports that she is moving her bowels almost every day. Not always feeling like she empties her bowels completely. Patient reports sometimes stools is soft. Occasional postprandial stooling. History of cholecystectomy. Patient denies diarrhea. Denies melena, hematochezia. Reports occasional trouble swallowing. Patient admits that she eats fast and does not always chew her food well. Patient denies dyspepsia or odynophagia. [facility] Medical History Kidney lesion Gallbladder polyp Abdominal pain Incontinence of urine Anxiety and depression GERD (gastroesophageal reflux disease) Hyperlipidemia HTN (hypertension) Surgical History Hx of hysterectomy History of dilatation and curettage Hx laparoscopic cholecystectomy H/O colonoscopy Family History Father No problems noted. Mother No problems noted. Social History Housing: House Alcohol intake: never Patient Tobacco Use Status: Never used Tobacco e-Cigarette/Vaping Use: Never Used Second Hand Smoke Exposure: No service: No Current occupational status: employed Cognitive needs: No Hearing needs: No Vision needs: Yes Physical Exam Vital Signs: Last Vital Signs Pulse 64 01/10/25 08:06 BP 140/72 H 01/10/25 08:06 Pulse Ox 97 01/10/25 08:06 Oxygen Delivery Method Room Air 01/10/25 08:06 BMI result Body Mass Index 31.6 Assessment & Plan Assessment & Plan (1) GERD (gastroesophageal reflux disease): Code(s): K21.9 - Gastro-esophageal reflux disease without esophagitis Category: Medical Qualifiers: Esophagitis presence: esophagitis presence not specified Qualified Code(s): K21.9 - Gastro-esophageal reflux disease without esophagitis (2) Dysphagia: Code(s): R13.10 - Dysphagia, unspecified Category: Medical Qualifiers: Dysphagia type: esophageal phase Qualified Code(s): R13.19 - Other dysphagia (3) Elevated LFTs: Code(s): R79.89 - Other specified abnormal findings of blood chemistry Category: Medical (4) Abdominal pain: Comment: RUQ Code(s): R10.9 - Unspecified abdominal pain Category: Medical Qualifiers: Abdominal location: right lower quadrant Qualified Code(s): R10.31 - Right lower quadrant pain Plan Patient will continue omeprazole daily. Avoid dietary triggers and late night snacking. Staying upright for minimum 3 hours after meals discussed with patient. Discussed with patient all FODMAP diet. List of food recommended as well as list of food to avoid given to patient. Patient will try [id number]-nqu-[id number] fiber to help her bulk her stool. Low fat, low carb, low-salt and high protein diet recommended. Patient will follow-up in 6 months, sooner on an as-needed basis. She is agreeable to plan of care and verbalizes understanding of instructions. She was given the opportunity to ask questions and all questions answered. Thank you for allowing me to participate in her care Orders: Orders US abdomen miller w elastography 6 Months K76.0 - Fatty (change of) liver, not elsewhere classified Liver Panel 6 Months R74.01 - Elevation of levels of liver transaminase levels Medications: New methylcellulose (laxative) (Citrucel) take it with full glass of water 500 mg PO DAILY 90 tabs 2RF K59.00 - Constipation, unspecified Coding Level of Care Code Est Pt Level 4 (57084) Complex EM visit Add On G2211 Diagnoses Gastroesophageal reflux disease, unspecified whether esophagitis present K21.9 Esophagitis presence: esophagitis presence not specified Esophageal dysphagia R13.19 Dysphagia type: esophageal phase Elevated LFTs R79.89 Right lower quadrant abdominal pain R10.31 Abdominal location: right lower quadrant Time Spent (min) 35 Comment 25 minutes spent with patient and additional 10 minutes spent reviewing her records
== END 2025-01-10 08:27 | disposition home or self-care (01) ==
LOC: HO.HGI 07:47
PROVIDERS: PCP Internal Medicine; Visit Provider Nurse Practitioner Family
DX: K21.9 Gastro-esophageal reflux disease without esophagitis (principal); R13.19 Other dysphagia; R79.89 Other specified abnormal findings of blood chemistry; R10.31 Right lower quadrant pain
CPT/HCPCS: 99214

== ENCOUNTER 2025-03-07 14:06 | Outpatient (AMB) | payer BC, SELFPAY ==
[2025-03-07 14:08] VITALS: BP 138/80; PULSE 71; RESP 18; TEMP 37; O2SAT 95; BMI 31.6
--- NOTE | 2025-03-07 14:08 | A.OFFPC_ITS ---
Vital Signs 03/07/25 14:08 Height 5 ft 4 in Weight 184 lb BMI 31.6 BP 138/80 Blood Pressure Location Lt brachial Position Sitting Respiration 18 Pulse 71 Pulse Source Pulse Oximeter Temp 98.6 F Temp Source Oral Pulse Oximetry (%) 95 Oxygen Delivery Method Room Air Intake Visit Reasons: lower back pain Intake Note: Pt is here today for a sick visit. Pt c/o lower back pain that goes down her buttocks and down her legs since last week. Pt states that it got worst this morning to the pont where she could not walk. Allergies No Known Allergies Allergy (Verified 09/14/24 08:43) Medication List - Last Reconciled 03/07/25 by Naa Avelar MD amlodipine-benazepril 5-20 mg 1 cap PO DAILY aspirin 81 mg PO DAILY atenolol 50 mg PO BID atorvastatin 80 mg PO DAILY estradiol 0.01%(0.1mg/gram) 1 g vaginal 2XW ibuprofen 600 mg PO Q8H methylcellulose (laxative) (Citrucel) 500 mg PO DAILY omeprazole 40 mg PO DAILY 90 days sertraline 50 mg PO DAILY Tobacco use date assessed: 03/07/25 Fall risk assessment: No Falls in past year Last assessed Fall Risk: 03/07/25 Dental Screening Dental Screen Date: 07/13/24 HPI lower back pain HPI Details Pt c/o LBP radiating to both buttocks and left lower extremity for 1 week getting worse when patient is standing walking or lying down. She denies any weakness or numbness in extremities change in bowel or bladder function. Patient denies any injury or lifting heavy objects, PFSH Medical History Sciatica Kidney lesion Gallbladder polyp Abdominal pain Incontinence of urine Anxiety and depression GERD (gastroesophageal reflux disease) Hyperlipidemia HTN (hypertension) Surgical History Hx of hysterectomy History of dilatation and curettage Hx laparoscopic cholecystectomy H/O colonoscopy Family History Father No problems noted. Mother No problems noted. Social History Housing: House Alcohol intake: never Patient Tobacco Use Status: Never used Tobacco e-Cigarette/Vaping Use: Never Used Second Hand Smoke Exposure: No service: No Current occupational status: employed Cognitive needs: No Hearing needs: No Vision needs: Yes Questionnaire Thrive Questionnaire Date Thrive assessed: 07/13/24 CHRISS-7 AMB Questionnaire CHRISS-7 Date CHRISS - 7 assessed: 07/13/24 Source: Developed by Drs. Blaine Daily, Carleen Barnett, Alton Hebert and colleagues, with an educational gibran from [facility]. Review of Systems Const All systems reviewed & are unremarkable except as noted in HPI and below ENT Reports no additional complaints Card Reports no additional complaints Resp Reports no additional complaints GI Reports no additional complaints Physical exam (Primary Care) Vital Signs: Last Vital Signs Temp 98.6 F 03/07/25 14:08 Pulse 71 03/07/25 14:08 Resp 18 03/07/25 14:08 BP 138/80 03/07/25 14:08 Pulse Ox 95 03/07/25 14:08 Oxygen Delivery Method Room Air 03/07/25 14:08 BMI result Body Mass Index 31.6 Tobacco/Smoking Status: Tobacco use Status Tobacco use date assessed 03/07/25 03/07/25 14:23 Patient Tobacco Use Status Never used Tobacco 03/07/25 14:09 Tobacco use type 02/10/24 12:48 e-Cigarette/Vaping Use Never Used 03/07/25 14:09 Thrive Assessment: Date of Thrive Assessment Date Thrive assessed 07/13/24 03/07/25 14:09 Const General: no acute distress HENMT Head: Yes normal to inspection Resp Effort & Inspection: normal respiratory effort Auscultation: clear to auscultation bilaterally Cardio Rhythm: regular rhythm Heart sounds: S1 normal heart sound present and S2 normal heart sound present Back/Spine/Pelvis Other: There is a decreased range of motion lumbar spine paraspinal tenderness lower lumbar region left more than right, straight leg rising 30 degrees on the left 45 degrees on the right, deep tendon reflexes are 2+ bilaterally motor strength 5/5 bilaterally Coding Level of Care Code Est Pt Level 4 (39671) Diagnoses Sciatica M54.30 Primary hypertension I10 Hypertension type: primary hypertension Assessment & Plan Assessment & Plan (1) Sciatica: Code(s): M54.30 - Sciatica, unspecified side Category: Medical Plan: For acute sciatica obtain x-ray of lumbar spine prednisone taper and baclofen prescribed patient will be referred to physical therapy, out of work note for 1 week (2) HTN (hypertension): Code(s): I10 - Essential (primary) hypertension Category: Medical Qualifiers: Hypertension type: primary hypertension Qualified Code(s): I10 - Essential (primary) hypertension Plan: Continue medication Orders: Orders PT Evaluation and Treatment Today M54.30 - Sciatica, unspecified side XR lumbar spine 2-3V Today M54.30 - Sciatica, unspecified side Medications: New prednisone Four tablets p.o. q.d. for 4 days, then 3 tablets p.o. q.d. for 4 days then 2 tablets p.o. q.d. for 4 days then 1 tablet p.o. q.d. for 4 orally daily; 40 tabs 0RF baclofen 10 mg PO BEDTIME 20 tabs 0RF
--- OUTSIDE RECORDS SUMMARY | 2025-03-07 16:41 | XMS_ITS | Clinical Summary ---
Author Organization [facility] Address [address] [place] [address] Phone Care Team Providers Care Endocrinologist Name Role Phone Naa Avelar MD Primary Care Provider [phone] Allergies No known active allergies Medications atenolol [...] 02/03/2008 OSTEOPOROSIS SCREENING INITI AL (ONE-TIME) 2023 INFLUENZA VACCINE (#1) 2024 COVID-19 VACCINE (1 - 2024-2 6 season) 2025 RSV VACCINE (1 - 1-dose 75+ series) [...] topic Medical Devices Not on file Insurance [facility] OUT OF STATE PPO [place] OUT OF [facility] PPO [place]UE CROSS OUT OF [facility] PPO BLUE CROSS OUT OF STATE PPO [place]UE [place]OSS OUT OF [facility] PPO BLUE CROSS OUT OF STATE PPO [facility] OUT OF [facility] PPO [facility] OUT OF STATE PPO Care Teams Endocrinologist Relationship Specialty Start Date End Date Naa Avelar MD [address] [place] [address] PCP - General Internal Medicine 04/24/22 Additional Source Comments The information contained in this document represents components of the legal health record. It is not the complete legal health record.[facility]
== END 2025-03-07 15:01 | disposition home or self-care (01) ==
LOC: HO.HMCC 14:07
PROVIDERS: PCP Internal Medicine; Visit Provider Internal Medicine
DX: M54.30 Sciatica, unspecified side (principal); I10 Essential (primary) hypertension

== ENCOUNTER 2025-03-07 14:06 | Outpatient (REF) | payer BC, SELFPAY ==
--- NOTE | ~2025-03-07 | XR_ITS ---
EXAMINATION: XR LUMBOSACRAL SPINE CLINICAL INFORMATION: M54.30 - Sciatica, unspecified side COMPARISON: X-ray 06/07/2020 TECHNIQUE: Three views of the lumbosacral spine. FINDINGS: Osteopenia. Mild rightward curvature. Vertebral body heights are maintained. No visible acute fracture or spondylolisthesis. Multilevel disc degenerative changes. Moderate L5-S1 disc degeneration. Multilevel facet degeneration. No lytic process seen. SI joints are symmetric. Phleboliths in pelvis. Cholecystectomy surgical clips. Paraspinal soft tissues appear within normal limits. XR/XR lumbar spine 2-3V IMPRESSION: Osteopenia. No radiographic evidence of acute fracture. Multilevel spondylosis. Moderate L5-S1 disc degeneration. Electronically signed by: Thomas Castanon MD 03/07/2025 03:11 PM EDT
--- OUTSIDE RECORDS SUMMARY | 2025-03-07 17:12 | XMS_ITS | Patient Health Record ---
Author Organization [facility] Address [address] [place] [address] Care Team Providers Care Snagger Name Role Phone Naa Avelar MD Primary Care Provider [employer] Gabriela Unavailable [phone] Allergies No Known Allergies Results Component Value Reference Range Notes Urinalysis, Complete-[id number] Reviewed date:06/25/2024 08:31:03 AM Interpretation: Performing Lab:[facility] [place], [address] [place] [address], Phone - [phone], Director - MDJodry Notes/Report: Clinical Information:SRC:UC Clinical Information:SRC:UC Specific [place] 1.027 1.005-1.030 pH 5.5 5.0-7.5 Urine-Color Yellow [...] Bacteria None seen None seen/Few Urine Culture, Routine-[id number] 7 Reviewed date:06/25/2024 08:29:42 AM Interpretation: Performing Lab:[facility] [place], [facility], [place], Phone - [phone], Director - MDCorriedry Notes/Report: Clinical Information:SRC:UC Clinical Information:SRC:UC Urine Culture, Routine Final report Result 1 Mixed urogenital david 10,000-25,000 colony forming units per mL PDF Report Reviewed date:06/25/2024 08:29:30 AM Interpretation: Performing Lab:[facility] [place], [address], [place], Phone - [phone], Director - Cheyanne Notes/Report: Clinical Information:SRC:UC Reason For Referral No Information Medications Medication SIG (Take, Route, Frequency, Duration) Notes Start Date End Date Status Nitrofurantoin Monohyd Macro 100 MG Oral; Duration: 5 Days Not-T aking Omeprazole 20 MG Oral; Duration: 30 Active amLODIPine Besy-Benazepril HCl 5-20 MG TAKE 1 CAPSULE BY MOUTH DAILY Oral; Duration: 30 Active Atenolol 50 MG TAKE 1 TABLET BY DEVAN TH TWICE DAILY Oral; Duration: 30 Active Atorvastatin Calcium 80 MG TAKE 1 TABLET BY MOUTH DAILY Oral; Duration: 30 Active Sertraline HCl 50 MG TAKE 1 TABLET BY MO UTH DAILY Oral; Duration: 30 Active Macrobid 100 MG 1 capsule with food Orally after intercourse (no more than 2 capsules daily) 02/16/2024 Not-Takin g amLODIPine Besy-Benazepril HCl 5-20 MG Oral; Duration: 30 Days Active Ibuprofen 600 MG Oral; Duration: 10 Days Not-Taking Social History Tobacco Use: [...] Status Risk Notes Problem Frequency of micturition (386213677) Frequency of micturition (R35.0) Active confirmed Problem Postmenopausal atrophic vaginitis (95097621) Postmenopausal atrophic vaginitis (N95.2) Active confirmed Problem Herniation of rectum into vagina (418213116) Rectocele (N81.6) Active confirmed Problem Screening for malignant neoplasm of cervix (048417617) Encounter for screening for malignant neoplasm of cervix (Z12.4) Active confirmed Problem Urinary incontinence (034342717) Unspecified urinary incontinence (R32) Active confirmed Problem Essential hypertension (80764570) Essential (primary) hypertension (I10) Active confirmed Problem Disorder of gallbladder (48855532) Disease of gallbladder, unspecified (K82.9) Active confirmed Problem Cystocele (448525920) Cystocele, unspecified (N81.10) Active confirmed Problem Complete uterovaginal prolapse (90916081) Complete uterovaginal prolapse (N81.3) Active confirmed Vital Signs Heart Rate 74 /min 06/14/2024 Temperature 97.3 degrees Fahrenheit 06/14/2024 Blood pressure diastolic 80 mm Hg 06/14/2024 Height 63 in 06/14/2024 Blood pressure systolic 142 mm Hg 06/14/2024 Weight 192.6 lbs 06/14/2024 BMI 34.11 kg/m2 06/14/2024 Encounters Encounter Location Date Provider Diagnosis [facility] [address] [place] [address] 06/14/2024 Gabriela Red Encounter for gynecological examination [...] TIGHT AND TOO NARROW. Plan Of Treatment Pending Test Test Name Order Date MAMMOGRAM, SCREENING 06/14/2024 Urinalysis 06/14/2024 BONE DENSITY 06/14/2024 MM Digital Mammo Screening 06/14/2024 Next Appt Details Provider Name:Gabriela colin, 06/20/2025 08:40:00 AM, [address], [place], [address], Insurance Providers Payer Name Payer Address Payer Phone Subscriber Number Group Number Insured Name Patient Relationship to Insured Coverage Start Date Coverage End Date [employer] [place] [address] [place] [address] [id number] ROBERTSESA Self - patient is the insured Medical [...]
== END 2025-03-07 14:07 | disposition home or self-care (01) ==
LOC: HO.HMGCX 14:06
PROVIDERS: PCP Internal Medicine; Visit Provider Internal Medicine
DX: I10 Essential (primary) hypertension (principal); M54.30 Sciatica, unspecified side
CPT/HCPCS: 72100

== ENCOUNTER → 2025-03-07 14:53 | Outpatient (BNV) | payer BC, SELFPAY | PROVIDERS: PCP Internal Medicine; Visit Provider Radiology Diagnostic Ultrasound | DX: M85.88 Other specified disorders of bone density and structure, other site (principal); M47.817 Spondylosis without myelopathy or radiculopathy, lumbosacral region; M51.372 Other intervertebral disc degeneration, lumbosacral region with discogenic back pain and lower extremity pain | CPT/HCPCS: 72100 ==

== ENCOUNTER 2025-03-22 08:51 | Outpatient (AMB) | payer BC, SELFPAY ==
[2025-03-22 08:53] VITALS: BP 126/74; PULSE 68; RESP 17; TEMP 36.7; O2SAT 97; BMI 31.6
--- NOTE | 2025-03-22 08:53 | MHC.PC.OV ---
Vital Signs 03/22/25 08:53 Height 5 ft 4 in Weight 184 lb BMI 31.6 BP 126/74 Blood Pressure Location Lt brachial Position Sitting Respiration 17 Pulse 68 Pulse Source Pulse Oximeter Temp 98.1 F Temp Source Oral Pulse Oximetry (%) 97 Oxygen Delivery Method Room Air Intake Visit Reasons: Annual PE Intake Note: Pt is here today for PE. Allergies No Known Allergies Allergy (Verified 03/22/25 08:53) Medication List - Last Reconciled 03/22/25 by Naa Avelar MD amlodipine-benazepril 5-20 mg 1 cap PO DAILY aspirin 81 mg PO DAILY atenolol 50 mg PO BID atorvastatin 80 mg PO DAILY baclofen 10 mg PO BEDTIME estradiol 0.01%(0.1mg/gram) 1 g vaginal 2XW ibuprofen 600 mg PO Q8H methylcellulose (laxative) (Citrucel) 500 mg PO DAILY omeprazole 40 mg PO DAILY 90 days prednisone Four tablets p.o. q.d. for 4 days, then 3 tablets p.o. q.d. for 4 days then 2 tablets p.o. q.d. for 4 days then 1 tablet p.o. q.d. for 4 orally daily; sertraline 50 mg PO DAILY Tobacco use date assessed: 03/22/25 Fall risk assessment: No Falls in past year Last assessed Fall Risk: 03/22/25 Dental Screening Dental Screen Date: 07/13/24 HPI Annual PE HPI Details Patient presents for physical. Lower back pain with left-sided sciatica is slightly improved after prednisone taper and patient is still waiting for appointment with physical therapy. [facility] Medical History Sciatica Kidney lesion Gallbladder polyp Abdominal pain Incontinence of urine Anxiety and depression GERD (gastroesophageal reflux disease) Hyperlipidemia HTN (hypertension) Surgical History Hx of hysterectomy History of dilatation and curettage Hx laparoscopic cholecystectomy H/O colonoscopy Family History Father No problems noted. Mother No problems noted. Social History Housing: House Alcohol intake: never Patient Tobacco Use Status: Never used Tobacco e-Cigarette/Vaping Use: Never Used Second Hand Smoke Exposure: No service: No Current occupational status: employed Cognitive needs: No Hearing needs: No Vision needs: Yes Questionnaire PHQ-9 Over the last 2 weeks, how often have you been bothered by any of the following problems? 1. Little interest or pleasure in doing things: not at all 2. Feeling down, depressed, or hopeless: not at all 3. Trouble falling or staying asleep, or sleeping too much: not at all 4. Feeling tired or having little energy: not at all 5. Poor appetite or overeating: not at all 6. Feeling bad about yourself - or that you are a failure or have let yourself or your family down: not at all 7. Trouble concentrating on things, such as reading the newspaper or watching television: not at all 8. Moving or speaking so slowly that other people could have noticed. Or the opposite - being so fidgety or restless that you have been moving around a lot more than usual: not at all 9. Thoughts that you would be better off or of hurting yourself in some way: not at all Total score: 0 Depression Screening Interpretation: Negative Depression Screening Done: Yes Source: Developed by Drs. Blaine Daily, Alton Lin and colleagues, with an educational gibran from [employer]. Thrive Questionnaire Date Thrive assessed: 07/13/24 CHRISS-7 AMB Questionnaire CHRISS-7 Date CHRISS - 7 assessed: 07/13/24 Source: Developed by Drs. Blaine Daily, Alton Lin and colleagues, with an educational gibran from [employer]. Review of Systems Const All systems reviewed & are unremarkable except as noted in HPI and below ENT Reports no additional complaints Card Reports no additional complaints Resp Reports no additional complaints GI Reports no additional complaints Reports no additional complaints Physical exam (Primary Care) Vital Signs: Last Vital Signs Temp 98.1 F 03/22/25 08:53 Pulse 68 03/22/25 08:53 Resp 17 03/22/25 08:53 BP 126/74 03/22/25 08:53 Pulse Ox 97 03/22/25 08:53 Oxygen Delivery Method Room Air 03/22/25 08:53 BMI result Body Mass Index 31.6 Tobacco/Smoking Status: Tobacco use Status Tobacco use date assessed 03/22/25 03/22/25 08:59 Patient Tobacco Use Status Never used Tobacco 03/22/25 08:59 Tobacco use type 02/10/24 12:48 e-Cigarette/Vaping Use Never Used 03/22/25 08:59 PHQ-9: PHQ-9 Score PHQ-9: Total score 0 03/22/25 09:24 Depression Screening Interpretation: Negative Thrive Assessment: Date of Thrive Assessment Date Thrive assessed 07/13/24 03/22/25 08:59 Const General: no acute distress HENMT Head: Yes normal to inspection Face and sinus: Yes normal facial exam Throat: Yes posterior oropharynx normal Neck Neck: Yes supple Resp Effort & Inspection: normal respiratory effort Auscultation: clear to auscultation bilaterally Cardio Rhythm: regular rhythm Heart sounds: S1 normal heart sound present and S2 normal heart sound present GI Inspection: Yes normal to inspection Palpation (GI): Soft to palpation Percussion: Yes normal to percussion Auscultation: normal bowel sounds Coding Level of Care Code Est Pt Prev Care >65y(48264) Diagnoses Primary hypertension I10 Hypertension type: primary hypertension Hyperlipidemia, unspecified hyperlipidemia type E78.5 Hyperlipidemia type: unspecified Annual physical exam Z00.00 Sciatica M54.30 Assessment & Plan Assessment & Plan (1) HTN (hypertension): Code(s): I10 - Essential (primary) hypertension Category: Medical Qualifiers: Hypertension type: primary hypertension Qualified Code(s): I10 - Essential (primary) hypertension Plan: Continue medications (2) Hyperlipidemia: Code(s): E78.5 - Hyperlipidemia, unspecified Category: Medical Qualifiers: Hyperlipidemia type: unspecified Qualified Code(s): E78.5 - Hyperlipidemia, unspecified Plan: Continue statin (3) Annual physical exam: Code(s): Z00.00 - Encounter for general adult medical examination without abnormal findings Category: Medical Plan: Well-balanced diet regular physical activity discussed with the patient she is up-to-date with the mammogram and colonoscopy (4) Sciatica: Code(s): M54.30 - Sciatica, unspecified side Category: Medical Plan: Patient will be starting physical therapy for sciatica follow-up in 1 month Medications: Discontinued prednisone Discontinued Reason: Doctor's Order Four tablets p.o. q.d. for 4 days, then 3 tablets p.o. q.d. for 4 days then 2 tablets p.o. q.d. for 4 days then 1 tablet p.o. q.d. for 4 orally daily; 40 tabs 0RF
--- OUTSIDE RECORDS SUMMARY | 2025-03-22 09:19 | XMS_ITS | Clinical Summary ---
Author Organization [facility] Address [address] [place] [phone] Phone Care Team Providers Care Technology And Engineering Teacher Name Role Phone Naa Avelar MD Primary Care Provider [phone] Allergies No known active allergies Medications atenolol [...] topic Medical Devices Not on file Insurance [facility] OUT OF STATE PPO [place] OUT OF [facility] PPO BLUE CROSS OUT OF [facility] PPO BLUE CROSS OUT OF STATE PPO BLUE CROSS OUT OF [facility] PPO BLUE CROSS OUT OF STATE PPO [facility] OUT OF [facility] PPO [facility] OUT OF STATE PPO Care Teams Technology And Engineering Teacher Relationship Specialty Start Date End Date Naa Avelar MD [address] [place] [address] PCP - General Internal Medicine 04/24/22 Additional Source Comments The information contained in this document represents components of the legal health record. It is not the complete legal health record.[facility]
== END 2025-03-22 09:31 | disposition home or self-care (01) ==
LOC: HO.HMCC 08:52
PROVIDERS: PCP Internal Medicine; Visit Provider Internal Medicine
DX: I10 Essential (primary) hypertension (principal); E78.5 Hyperlipidemia, unspecified; Z00.00 Encounter for general adult medical examination without abnormal findings; M54.30 Sciatica, unspecified side

== ENCOUNTER 2025-03-23 07:47 | Outpatient (REF) | payer BC, SELFPAY ==
--- OUTSIDE RECORDS SUMMARY | 2025-03-23 07:50 | XMS_ITS | Clinical Summary ---
Author Organization [facility] Address [address] [facility] [address] [facility] [address] [place] [id number] Phone Care Team Providers Care Property Worker Name Role Phone Naa Avelar MD Primary Care Provider [phone] Allergies No known active allergies Medications atenolol [...] topic Medical Devices Not on file Insurance [facility] OUT OF STATE PPO [place] OUT OF [facility] PPO [place] OUT OF [facility] PPO BLUE CROSS OUT OF STATE PPO [place] OUT OF [facility] PPO [place] [place] OUT OF STATE PPO [facility] OUT OF [facility] PPO [facility] OUT OF STATE PPO Care Teams Property Worker Relationship Specialty Start Date End Date Naa Avelar MD 1963 [facility] [place] [address] PCP - General Internal Medicine 04/24/22 Additional Source Comments The information contained in this document represents components of the legal health record. It is not the complete legal health record.[facility]
[2025-03-23 10:40] LABS: MANUAL DIFF FLAG NO
[2025-03-23 10:53] LABS: Hematocrit 41.1 % (37.0-47.0); Hemoglobin 13.1 g/dl (12.0-16.0); Imm Gran Abs Auto 0.05 X10*3/uL (0.00-0.03); Imm Gran Pct Auto 0.4 % (0.0-0.4); Lymphocytes Absolute Auto 3.9 X10*3/uL (1.2-4.9); Mean Corpuscular HGB Conc 31.9 g/dl (31.0-35.0); Mean Corpuscular Hemoglobin 29.4 pg (27.0-33.0); Mean Corpuscular Volume 92.2 fL (80.0-98.0); NRBC Abs Auto 0.000 X10*3/uL (0.0-0.012); NRBC Pct Auto 0.0 /100WBC (0.0-0.2); Platelet Count 286 X10*3/uL (160-400); Red Blood Count 4.46 X10*6/uL (4.20-5.50); White Blood Count 12.6 X10*3/uL (4.8-10.8)
[2025-03-23 11:08] LABS: Alanine Aminotransferase 31 U/L (0-31); Albumin Level 4.4 g/dL (3.5-5.0); Alkaline Phosphatase 63 U/L (39-117); Anion Gap 10 (12-20); Aspartate Amino Transferase 22 U/L (5-31); Blood Urea Nitrogen 18 mg/dL (9-16); Calcium 9.2 mg/dL (8.4-10.2); Carbon Dioxide 31 mmol/L (22-29); Chloride 105 mmol/L (96-108); Cholesterol 195 mg/dL (<200); Estimated Glomerular Filt Rate > 60; HDL Cholesterol 83 mg/dL (>40); Potassium 4.0 mmol/L (3.3-5.1); Sodium 142 mmol/L (135-145); Total Protein 6.9 g/dL (6.5-8.0); Triglycerides 88 mg/dL (<150)
== END 2025-03-23 07:48 | disposition home or self-care (01) ==
LOC: HO.HMGCLDS 07:47
PROVIDERS: PCP Internal Medicine; Visit Provider Internal Medicine
DX: I10 Essential (primary) hypertension (principal); E78.5 Hyperlipidemia, unspecified; Z13.21 Encounter for screening for nutritional disorder
CPT/HCPCS: 36415; 80053; 80061; 82306; 84443; 85025

== ENCOUNTER 2025-05-03 09:37 | Outpatient (AMB) | payer BC, SELFPAY ==
[2025-05-03 09:48] VITALS: BP 124/70; PULSE 80; RESP 16; TEMP 36.8; O2SAT 97; BMI 31.6
--- NOTE | 2025-05-03 09:48 | A.OFFPC_ITS ---
Vital Signs 05/03/25 09:48 Height 5 ft 4 in Weight 184 lb BMI 31.6 BP 124/70 Blood Pressure Location Rt brachial Position Sitting Respiration 16 Pulse 80 Pulse Source Pulse Oximeter Temp 98.3 F Temp Source Oral Pulse Oximetry (%) 97 Oxygen Delivery Method Room Air Intake Visit Reasons: 1 month f/up Intake Note: Pt is here today for 1 month follow up visit. Allergies No Known Allergies Allergy (Verified 05/03/25 10:00) Medication List - Last Reconciled 05/03/25 by Naa Avelar MD amlodipine-benazepril 5-20 mg 1 cap PO DAILY aspirin 81 mg PO DAILY atenolol 50 mg PO BID atorvastatin 80 mg PO DAILY baclofen 10 mg PO BEDTIME estradiol 0.01%(0.1mg/gram) 1 g vaginal 2XW ibuprofen 600 mg PO Q8H methylcellulose (laxative) (Citrucel) 500 mg PO DAILY omeprazole 40 mg PO DAILY 90 days sertraline 50 mg PO DAILY Tobacco use date assessed: 03/22/25 Dental Screening Dental Screen Date: 07/13/24 HPI 1 month f/up HPI Details Patient presents complaining of persistent left buttock and left posterior leg pain worse when walking but also sitting and lying down for 1 month. She also reports left groin pain worse when walking. Patient took prednisone taper with some relief and has been taking ibuprofen 4 times a day. She denies lower back pain. X-ray of lumbar spine was consistent with mild degenerative changes L5-S1. Patient denies any weakness or numbness in extremities, change in bladder or bowel function. Patient reports dysuria for 2 days but no abdominal pain nausea vomiting fever chills or flank pain. She took 2 tablets of Macrobid yesterday. [facility] Medical History Sciatica Kidney lesion Gallbladder polyp Abdominal pain Incontinence of urine Anxiety and depression GERD (gastroesophageal reflux disease) Hyperlipidemia HTN (hypertension) Surgical History Hx of hysterectomy History of dilatation and curettage Hx laparoscopic cholecystectomy H/O colonoscopy Family History Father No problems noted. Mother No problems noted. Social History Housing: House Alcohol intake: never Patient Tobacco Use Status: Never used Tobacco e-Cigarette/Vaping Use: Never Used Second Hand Smoke Exposure: No service: No Current occupational status: employed Cognitive needs: No Hearing needs: No Vision needs: Yes Questionnaire Thrive Questionnaire Date Thrive assessed: 07/13/24 CHRISS-7 AMB Questionnaire HCRISS-7 Date CHRISS - 7 assessed: 07/13/24 Source: Developed by Drs. Blaine Daily, Carleen Barnett, Alton Hebert and colleagues, with an educational gibarn from [employer] Review of Systems Const All systems reviewed & are unremarkable except as noted in HPI and below Card Reports no additional complaints Resp Reports no additional complaints GI Reports no additional complaints Reports no additional complaints Physical exam (Primary Care) Vital Signs: Last Vital Signs Temp 98.3 F 05/03/25 09:48 Pulse 80 05/03/25 09:48 Resp 16 05/03/25 09:48 BP 124/70 05/03/25 09:48 Pulse Ox 97 05/03/25 09:48 Oxygen Delivery Method Room Air 05/03/25 09:48 BMI result Body Mass Index 31.6 Tobacco/Smoking Status: Tobacco use Status Tobacco use date assessed 03/22/25 05/03/25 09:52 Patient Tobacco Use Status Never used Tobacco 05/03/25 09:52 Tobacco use type 02/10/24 12:48 e-Cigarette/Vaping Use Never Used 05/03/25 09:52 Thrive Assessment: Date of Thrive Assessment Date Thrive assessed 07/13/24 05/03/25 09:52 Const General: no acute distress Resp Effort & Inspection: normal respiratory effort Auscultation: clear to auscultation bilaterally Cardio Rhythm: regular rhythm Heart sounds: S1 normal heart sound present and S2 normal heart sound present GI Inspection: Yes normal to inspection Palpation (GI): Soft to palpation Percussion: Yes normal to percussion Auscultation: normal bowel sounds Back/Spine/Pelvis Other: No lumbar spine tenderness, straight leg rising 45 degrees on the left, 90 degrees on the right. There is a focal tenderness of the mid left buttock. The slightly decreased range of motion in the left hip, strength is 5/5 both lower extremities, deep tendon reflexes 1+ bilaterally Results AMB Urinalysis, Automated UA Leukoctes 0 J Luis/uL Last Edit by ARBEN Richard on 05/03/25 10:31 UA Nitrite Negative Last Edit by Gabriella Whittington Db on 05/03/25 10:31 UA Urobilinogen 0.2 mg/dL Last Edit by Gabriella Whittington Db on 05/03/25 10: 31 UA Protein 0 mg/dL Last Edit by Gabriella Whittington Db on 05/03/25 10:31 UA pH 6.0 Last Edit by Gabriella Whittington Db on 05/03/25 10:31 UA Blood 200 Esau/uL Last Edit by Gabriella Whittington Db on 05/03/25 10:31 UA Specific [place] 1.010 Last Edit by Gabriella Whittington Db on 05/03/25 10 :31 UA Ketone Negative Last Edit by Gabriella Whittington Db on 05/03/25 10:31 UA Bilirubin 0 mg/dL Last Edit by Gabriella Whittington Db on 05/03/25 10:31 UA Glucose 200 mg/dL Last Edit by Gabriella Whittington Db on 05/03/25 10:31 Results Reviewed Results Reviewed: Laboratory Last Values Urine pH (Auto) 6.0 05/03/25 10:23 Specific [place] (Auto) 1.010 05/03/25 10:23 Urine Protein (Auto) 0 mg/dL 05/03/25 10:23 Glucose (UA)(Auto) 200 mg/dL 05/03/25 10:23 Urine Ketones (Auto) Negative 05/03/25 10:23 Urine Blood (Auto) 200 Esau/uL 05/03/25 10:23 Urine Nitrite (Auto) Negative 05/03/25 10:23 Urine Bilirubin (Auto) 0 mg/dL 05/03/25 10:23 Urine Urobilinogen (Auto) 0.2 mg/dL 05/03/25 10:23 Leukocyte Esterase (Auto) 0 J Luis/uL 05/03/25 10:23 Coding Level of Care Code Est Pt Level 4 (62831) Diagnoses Hip pain, bilateral M25.551; M25.552 Dysuria R30.0 Sciatica M54.30 Assessment & Plan Assessment & Plan (1) Hip pain, bilateral: Code(s): M25.551 - Pain in right hip; M25.552 - Pain in left hip Category: Medical Plan: Obtain x-rays of both hips (2) Dysuria: Code(s): R30.0 - Dysuria Category: Medical Plan: Check UA and culture (3) Sciatica: Code(s): M54.30 - Sciatica, unspecified side Category: Medical Plan: Prednisone taper as prescribed patient will be referred to physical therapy Orders: Orders XR hips LASHAE min 3V Today M25.551 - Pain in right hip, M25.552 - Pain in left hip UA w Microscopic Today R30.0 - Dysuria Urine Culture Today R30.0 - Dysuria PT Evaluation and Treatment Today M54.30 - Sciatica, unspecified side AMB Urinalysis Automated Today Z13.9 - Encounter for screening, unspecified Medications: New prednisone 4 tabl qd x 4 days, then 3 tabl qd x 4 days, then 2 tabl qd x 4 days, then 1 tabl qd x 4 days 10 mg PO DAILY 40 tabs 0RF
--- OUTSIDE RECORDS SUMMARY | 2025-05-03 10:29 | XMS_ITS | Clinical Summary ---
Author Organization [facility] Address [address] [facility] [address] [place] [id number] Phone Care Team Providers Care Hospitalist Physician Name Role Phone Naa Avelar MD Primary Care Provider [phone] Allergies No known active allergies Medications atenolol [...] topic Medical Devices Not on file Insurance [facility] OUT OF STATE PPO [place] OUT OF [facility] PPO [facility]UE CROSS OUT OF [facility] PPO BLUE CROSS OUT OF STATE PPO BL[employer] [place] OUT OF [facility] PPO BL[employer] [place] OUT OF STATE PPO [facility] OUT [facility] PPO [facility] OUT OF [facility] PPO Care Teams Hospitalist Physician Relationship Specialty Start Date End Date Naa Avelar MD 1963 [place] [address] PCP - General Internal Medicine 04/24/22 Additional Source Comments The information contained in this document represents components of the legal health record. It is not the complete legal health record.[facility]
== END 2025-05-03 11:05 | disposition home or self-care (01) ==
LOC: HO.HMCC 09:37
PROVIDERS: PCP Internal Medicine; Visit Provider Internal Medicine
DX: M25.551 Pain in right hip (principal); M25.552 Pain in left hip; R30.0 Dysuria; M54.30 Sciatica, unspecified side; Z13.9 Encounter for screening, unspecified

== ENCOUNTER 2025-05-03 09:37 | Outpatient (REF) | payer BC, SELFPAY ==
--- NOTE | ~2025-05-03 | XR_ITS ---
EXAMINATION: XR BILATERAL HIPS WITH AP PELVIS CLINICAL INFORMATION: M25.551 - Pain in right hip COMPARISON: None available. TECHNIQUE: AP and frog-leg lateral views of each hip. FINDINGS: LEFT HIP: There is mild to moderate axial joint space narrowing. There are small marginal sites involving acetabular roof and femoral head. There is subchondral sclerosis on the iliac side of the SI joint. RIGHT HIP: There is mild axial joint space narrowing. There are small marginal sites involving acetabular roof. There is mild degenerative changes in the SI joints with marginal osteophytes. There is sclerosis and mild irregularity of the pubic symphysis joint. 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 Electronically signed by: Cipriano Jimenes MD 05/03/2025 10:50 AM DAVID
[2025-05-03 13:47] LABS: Appearance Urine Clear; Glucose Urine UA Negative (Negative); PH 6.5 (5.0-9.0); Specific Gravity - Urine <= 1.005 (1.005-1.025); UMIC TRIGGER UA YES
== END 2025-05-03 09:38 | disposition home or self-care (01) ==
LOC: HO.HMGCX 09:37
PROVIDERS: PCP Internal Medicine; Visit Provider Internal Medicine
DX: M25.552 Pain in left hip (principal); M25.551 Pain in right hip; R30.0 Dysuria
CPT/HCPCS: 73522; 81001; 81003; 87086; 87088; 87186

== ENCOUNTER → 2025-05-03 10:30 | Outpatient (BNV) | payer BC, SELFPAY | PROVIDERS: PCP Internal Medicine; Visit Provider Radiology Diagnostic Radiology | DX: M16.0 Bilateral primary osteoarthritis of hip (principal) | CPT/HCPCS: 73522 ==